=== PATIENT | male | born 1945 | race Caucasian/White ===

== ENCOUNTER 2018-03-29 10:25 | Outpatient (REF) | payer BC, SELFPAY ==
[2018-03-29 20:58] LABS: FREE T4 1.19 ng/dL (0.76-1.46); Potassium 3.8 mmol/L (3.5-5.1); TSH 1.58 uIU/mL (0.358-3.74)
[2018-03-29 21:02] LABS: Abs Immature Grans 0.01 k/cumm (0.0-0.09); Absolute Basophil Count 0.02 k/cumm (0.0-0.2); Absolute Eosinophil Count 0.19 k/cumm (0.0-0.7); Absolute Lymphocyte Count 1.66 k/cumm (1.2-3.4); Absolute Neutrophil Count 5.61 k/cumm (1.2-6.7); Basophils % 0.2; Eosinophils % 2.3; HCT 38.2 % (40.0-50.0); HGB 13.2 g/dL (13.5-17.5); Immature Grans % 0.1; Lymphocytes % 20.5; Mean Corp. HGB Concentration 34.6 g/dL (32.0-36.0); Mean Corpuscular Hemoglobin 32.7 pg (27.0-33.0); Mean Corpuscular Volume 94.6 fL (80-95); Mean Platelet Volume 9.3 fL (8.0-11.0); Monocytes % 7.4; Neutrophils % 69.5; Platelet Count 249 x1000/uL (130-400); RBC 4.04 m/cumm (4.50-6.00); RBC Distribution Width 12.9 % (11.8-14.1); White Blood Cell Count 8.09 k/cumm (4.4-10.8)
== END 2018-03-29 10:45 ==
LOC: NCHCN 10:25
PROVIDERS: PCP Family Medicine; Visit Provider Family Medicine
DX: E03.9 Hypothyroidism, unspecified (principal); I10 Essential (primary) hypertension; N39.9 Disorder of urinary system, unspecified
CPT/HCPCS: 84132; 84439; 84443; 85025

== ENCOUNTER 2018-10-02 15:48 | Outpatient (REF) | payer BC, SELFPAY ==
[2018-10-03 06:07] LABS: HCT 40.3 % (40.0-50.0); HGB 13.8 g/dL (13.5-17.5); Mean Corp. HGB Concentration 34.2 g/dL (32.0-36.0); Mean Corpuscular Hemoglobin 31.9 pg (27.0-33.0); Mean Corpuscular Volume 93.3 fL (80-95); Mean Platelet Volume 9.3 fL (8.0-11.0); Platelet Count 274 x1000/uL (130-400); RBC 4.32 m/cumm (4.50-6.00); RBC Distribution Width 13.4 % (11.8-14.1); White Blood Cell Count 8.72 k/cumm (4.4-10.8)
[2018-10-03 06:41] LABS: ALT 44 U/L (12-78); AST 49 U/L (15-37); Albumin 4.2 g/dL (3.4-5.0); Alkaline Phosphatase 93 U/L (46-116); Anion Gap 12.3 mmol/L (3-11); BUN 16 mg/dL (7-18); Bilirubin, Total 0.5 mg/dL (0.2-1.0); CO2 26.7 mmol/L (21.0-32.0); CREATININE 1.13 mg/dL (0.70-1.30); Calcium 9.5 mg/dL (8.5-10.1); Chloride 100 mmol/L (98-107); Cholesterol 167 mg/dL (50-200); Glucose 95 mg/dL (70-100); HDL Cholesterol 69 mg/dL (40-60); LDL CHOLESTEROL 77 mg/dL (<100); Potassium 3.8 mmol/L (3.5-5.1); Sodium 139 mmol/L (136-145); Total Protein 7.5 g/dL (6.4-8.2); Triglyceride 98 mg/dL (30-150)
[2018-10-03 08:28] LABS: Hemoglobin A1C 5.7 % (4.5-6.2)
== END 2018-10-02 16:08 ==
LOC: NCHCN 15:48
PROVIDERS: PCP Family Medicine; Visit Provider Nurse Practitioner Family
DX: Z00.00 Encounter for general adult medical examination without abnormal findings (principal); E78.5 Hyperlipidemia, unspecified; Z13.1 Encounter for screening for diabetes mellitus; Z98.61 Coronary angioplasty status
CPT/HCPCS: 80053; 80061; 83721; 85027; 83036

== ENCOUNTER 2019-12-30 12:53 | Outpatient (REF) | payer BC, SELFPAY ==
[2019-12-30 21:04] LABS: INR 0.9 (0.9-1.1); Prothrombin Time 9.3 sec (9.3-11.0)
[2019-12-30 21:42] LABS: HCT 39.3 % (40.0-50.0); HGB 13.6 g/dL (13.5-17.5); Mean Corp. HGB Concentration 34.6 g/dL (32.0-36.0); Mean Corpuscular Hemoglobin 32.2 pg (27.0-33.0); Mean Corpuscular Volume 93.1 fL (80-95); Mean Platelet Volume 8.8 fL (8.0-11.0); Platelet Count 319 x1000/uL (130-400); RBC 4.22 m/cumm (4.50-6.00); RBC Distribution Width 13.3 % (11.8-14.1); White Blood Cell Count 7.27 k/cumm (4.4-10.8)
[2019-12-30 22:41] LABS: ALT 32 U/L (16-63); AST 27 U/L (15-37); Albumin 3.9 g/dL (3.4-5.0); Alkaline Phosphatase 93 U/L (46-116); BUN 14 mg/dL (7-18); Bilirubin, Total 0.4 mg/dL (0.2-1.0); CREATININE 0.89 mg/dL (0.70-1.30); Calcium 9.6 mg/dL (8.5-10.1); Calculated LDL 71 mg/dL (<100); Chloride 99 mmol/L (98-107); Cholesterol 150 mg/dL (<200); Glucose 82 mg/dL (74-106); HDL Cholesterol 60 mg/dL (40-60); Potassium 3.7 mmol/L (3.5-5.1); Sodium 137 mmol/L (136-145); TSH 2.47 uIU/mL (0.36-3.74); Total Protein 6.9 g/dL (6.4-8.2); Triglyceride 97 mg/dL (<150)
[2019-12-31 14:40] LABS: Hemoglobin A1C 5.6 % (3.8-5.6)
== END 2019-12-30 13:13 ==
LOC: NCHCN 12:53
PROVIDERS: Visit Provider Nurse Practitioner Family
DX: Z00.00 Encounter for general adult medical examination without abnormal findings (principal); I10 Essential (primary) hypertension; R73.09 Other abnormal glucose; E78.5 Hyperlipidemia, unspecified; Z98.61 Coronary angioplasty status; Z72.89 Other problems related to lifestyle
CPT/HCPCS: 80053; 80061; 85027; 83036; 84443; 85610

== ENCOUNTER 2020-12-30 19:50 | Outpatient (REF) | payer BC, SELFPAY ==
[2020-12-30 14:14] LABS: Hemoglobin A1C 5.2 % (<5.7)
[2020-12-30 14:32] LABS: ALT 40 U/L (16-63); AST 30 U/L (15-37); Albumin 3.7 g/dL (3.4-5.0); Alkaline Phosphatase 84 U/L (46-116); BUN 14 mg/dL (7-18); Bilirubin, Total 0.5 mg/dL (0.2-1.0); Chloride 96 mmol/L (98-107); Ferritin 15 ng/mL (26-388); Glucose 94 mg/dL (74-106); Sodium 135 mmol/L (136-145); TSH 0.81 uIU/mL (0.36-3.74); Total Protein 6.6 g/dL (6.4-8.2); Vitamin B12 852 pg/mL (193-986)
[2020-12-30 21:36] LABS: PSA, Screening 0.9 ng/mL (0.0-6.5)
== END 2020-12-30 19:51 | disposition home or self-care (01) ==
LOC: NCHCN 19:50
PROVIDERS: PCP Nurse Practitioner Family; Visit Provider Nurse Practitioner Community Health
DX: Z12.5 Encounter for screening for malignant neoplasm of prostate (principal); G47.62 Sleep related leg cramps; R73.09 Other abnormal glucose; I10 Essential (primary) hypertension; Z72.89 Other problems related to lifestyle
CPT/HCPCS: 80053; 84153; 82607; 82728; 83036; 84443

== ENCOUNTER 2021-01-06 15:31 | Outpatient (REF) | payer BC, SELFPAY ==
[2021-01-06 21:55] LABS: Anion Gap 12.4 mmol/L (3-11); BUN 16 mg/dL (7-18); CO2 26.6 mmol/L (21.0-32.0); CREATININE 1.1 mg/dL (0.70-1.30); Calcium 8.7 mg/dL (8.5-10.1); Chloride 98 mmol/L (98-107); Glucose 103 mg/dL (74-106); Potassium 3.4 mmol/L (3.5-5.1); Sodium 137 mmol/L (136-145)
== END 2021-01-06 15:32 | disposition home or self-care (01) ==
LOC: NCHCN 15:31
PROVIDERS: PCP Nurse Practitioner Family; Visit Provider Nurse Practitioner Community Health
DX: E87.6 Hypokalemia (principal); E61.1 Iron deficiency
CPT/HCPCS: 80048

== ENCOUNTER 2021-01-14 01:59 | Outpatient (CLI) | payer BC, SELFPAY ==
--- NOTE | 2021-01-14 | DI.RAD_ITS ---
Exam(s) XR LUMBAR SPINE COMPLETE EXAM: XR LUMBAR SPINE COMPLETE CLINICAL HISTORY: SCIATIC NERVE BACK PAIN, M54.30, ? SPINAL STENOSIS. TECHNIQUE: 2D digital imaging was performed. COMPARISON: CT ABD PELVIS WITH CONTRAST from 07/16/2008 FINDINGS: There is no evidence of compression fracture or listhesis nor pars defects. There is mild disc space narrowing at L4-5 level and L3-4 level with anterior osseous lipping at these 2 levels. Other disc spaces exhibit normal height. Mild degenerative facet arthropathy. Abdominal aorta is calcified and appears to and appears aneurysmal. IMPRESSION: Degenerative disc disease. No fracture or listhesis Calcified abdominal aorta possible aneurysm. DATA REPOSITORY: RADIATION DOSE DELIVERED:
--- NOTE | 2021-01-14 | DI.CTLCSR_ITS ---
Exam(s) CT CHEST LUNG CANCER SCREEN EXAM: CT CHEST LUNG CANCER SCREEN CLINICAL HISTORY: SCREENING FOR LUNG CA,CURRENT SMOKER. TECHNIQUE: Imaging Protocol: Low Dose Technique CONTRAST MATERIAL: None COMPARISON: No exams were available for comparison FINDINGS: CHEST: LUNGS: There are no ominous pulmonary nodules. There is mild ground-glass infiltrate in the posterior segment of the right upper lobe and superior segment of the right lower lobe, these increased markin gs surrounding multiple small bullae. There is sparing of the right middle lobe the exception of roxanne e mild increased interstitial markings subpleurally located in the anterior right middle lobe. Also mild increased markings in the posterior basal segment right lower lobe. In the opposite-left lung there is some mild presently benign-appearing pleural thickening over the s ub apical region of the upper lobe. There is some infiltrate in the lingular segment extending from the heart border out to the pleural surface. Probably inflammatory. No significant focal findings i n the lower lobe basal segments of the left lung nor in the superior segment. There are no pleural e ffusions on either side. There are no significant focal findings in the trachea and mainstem bronchi . MEDIASTINUM: There is no obvious hilar nor mediastinal adenopathy. CARDIAC: Heart size is normal. There is no pericardial effusion.Coronary artery calcification noted. Caliber of the thoracic aorta is upper normal. OTHER: OSSEOUS: No significant osseous lesions.. IMPRESSION: 1. Although there are no ominous pulmonary nodules, there is subtle mild ground-glass infiltrate in t he posterior segment of the right upper lobe and superior segment of the right lower lobe. Also some infiltrate in the lingular segment of the left lung. No pleural effusions nor intrathoracic adenopa thy. 2. Recommend repeat CT scan in 6 months, earlier if clinically indicated. 3. Lung RADS Cat 3 - Probably Benign: Probably benign finding(s) - short term follow-up suggested; in clude nodules with a low likelihood of becoming a clinically active cancer. Lung-RADS 1.0 CATEGORIES: Category 0 - Prior chest CT exam(s) being located for comparison. Category 1 - Annual screening in 12 months. No nodules or definitely benign nodules. Category 2 - Annual screening in 12 months. Benign appearance. Nodules with low likelihood of becomin g active cancer. Category 3 - 6-month follow-up. Probably benign. Short-term follow-up suggested. Nodules with low lik elihood of becoming active cancer. Category 4A - 3-month follow-up and CT/PET if >8 mm in size. Suspicious finding. Findings which requi re additional testing. Category 4B - Findings which require additional testing and tissue sampling. Modifier S- Potentially clinically significant findings (non lung cancer) RADIATION DOSE DELIVERED: 82.77mGy.cm Total DLP 1.84mGy CTDIvol DATA REPOSITORY: All CT scans at this facility are submitted to the National Radiology Data Registry (NRDR) Dose Index Registry (DIR) with the [employer] ([employer]). RADIATION OPTIMIZATION: All CT scans at this facility use at least one of these dose optimization te chniques: automated exposure control; mA and/or kV adjustment per patient size (includes targeted exa ms where dose is matched to clinical indication); or iterative reconstruction.
== END 2021-01-14 02:19 ==
PROVIDERS: PCP Nurse Practitioner Family; Visit Provider Nurse Practitioner Community Health
DX: Z12.2 Encounter for screening for malignant neoplasm of respiratory organs (principal); I70.0 Atherosclerosis of aorta; M51.16 Intervertebral disc disorders with radiculopathy, lumbar region; R91.8 Other nonspecific abnormal finding of lung field; F17.200 Nicotine dependence, unspecified, uncomplicated
CPT/HCPCS: 71271; 72110

== ENCOUNTER 2021-01-14 14:00 | Outpatient (REF) | payer BC, SELFPAY ==
[2021-01-14 21:33] LABS: Ferritin 80 ng/mL (26-388)
== END 2021-01-14 14:01 | disposition home or self-care (01) ==
LOC: NCHCN 14:00
PROVIDERS: PCP Nurse Practitioner Family; Visit Provider Nurse Practitioner Community Health
DX: E87.6 Hypokalemia (principal); E61.1 Iron deficiency
CPT/HCPCS: 82728

== ENCOUNTER 2021-04-05 14:39 | Outpatient (REF) | payer BC, SELFPAY ==
[2021-04-05 14:33] LABS: HCT 34.4 % (40.0-50.0); HGB 11.6 g/dL (13.5-17.5)
[2021-04-05 14:48] LABS: Anion Gap 5.9 mmol/L (3-11); BUN 16 mg/dL (7-18); CO2 31.1 mmol/L (21.0-32.0); CREATININE 1.2 mg/dL (0.70-1.30); Calcium 9.2 mg/dL (8.5-10.1); Chloride 99 mmol/L (98-107); Estimated GFR 59.35 (mL/min/1.73m2); Glucose 154 mg/dL (74-106); Potassium 3.2 mmol/L (3.5-5.1); Sodium 136 mmol/L (136-145)
== END 2021-04-05 14:40 | disposition home or self-care (01) ==
LOC: NCHCN 14:39
PROVIDERS: PCP Nurse Practitioner Family; Visit Provider Nurse Practitioner Community Health
DX: I10 Essential (primary) hypertension (principal); E87.6 Hypokalemia; D64.9 Anemia, unspecified
CPT/HCPCS: 80048; 85014; 85018

== ENCOUNTER 2021-05-20 22:41 | Emergency (ER) | payer BC, SELFPAY ==
[2021-05-20 22:46] VITALS: BP 155/66; PULSE 74; RESP 20; TEMP 36.4; O2SAT 99
--- NOTE | 2021-05-20 23:00 | W.ED.GENAD ---
Discharge Plan Disposition Patient Disposition: HOME Condition: Stable Discharge Details Clinical Impression: Pain of right thigh, Muscle spasm Primary Care Provider: Asia Owens ED Provider: Zac Jha Home Meds and New Rx's Prescriptions: New cyclobenzaprine 10 mg tablet 10 mg PO TID PRNQty: 20 RF: 0 Continued amlodipine 10 mg tablet 10 mg PO DAILY Qty: 90 RF: 3 atorvastatin [Lipitor] 20 mg tablet 20 mg PO DAILY Qty: 90 RF: 3 hydrochlorothiazide 25 mg tablet 25 mg PO DAILY Qty: 90 RF: 3 levothyroxine [Synthroid] 137 mcg tablet 137 mcg PO DAILY Qty: 90 RF: 3 mesalamine [Apriso] 0.375 gram capsule,extended release 24hr 0.375 gm PO DAILY Qty: 360 RF: 3 triamcinolone acetonide 0.1 % cream 1 applic Topical BID PRN (Reason: psoriasis) Qty: 80 RF: 0 aspirin [Ecotrin Low Strength] 81 MG tablet,delayed release (DR/EC) 81 mg PO DAILY RF: 0 CENTRUM SILVER TABLET 1 EACH tablet 1 tab PO DAILY RF: 0 nicotine [Nicoderm CQ] 21 mg/24 hr patch 24 hour 1 patch transdermal DAILY RF: 0 sildenafil [Viagra] 100 mg tablet 100 mg PO DAILY PRNRF: 0 potassium chloride 20 mEq tablet,ER particles/crystals 20 meq PO DAILY RF: 0 ferrous sulfate 325 mg (65 mg iron) tablet 325 mg PO Q OTHER DAY RF: 0 gabapentin 300 mg capsule 600 mg PO BID RF: 0 losartan 25 mg tablet 12.5 mg PO DAILY RF: 0 chlorthalidone 15 mg tablet 75 mg PO DAILY RF: 0 Discharge Instructions Instructions: Muscle Spasm (ED) Additional Instructions: follow up with your primary care provider within 1 week if you feel more ill, have fevers or difficulty breathing return to the emergency department Medical Decision Making 75 yo male with hx of htn, hld, who comes in with chief complaint of right thigh pain. He states he had a similar issue in the left leg a month or so ago and was told it was sciatica. He localizes the pain to the anterior right thigh. 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 He is in no distress on exam. He has no leg swelling, no calf tenderness, normal distal sensation and pulses. He localizes the pain to the anterior mid thigh. He has no visible deformities or bruising. His thigh muscles do feel like they are in a spasm compared to the left. He has full range of motion of all joints. I suspect muscle spasm vs strain, no findings on history or exam to suggest fracture/dislocation so do not feel xray indicated and no findings to suggest infectious etiology. No saddle anesthesia and no back pain so doubt cauda equina or spinal epidural abscess. He drove himself here and given this is hesitant to take a muscle relaxer, will try toradol and lidocaine patch and reassess. This could also just be overuse injury or a strain from his work that he does. pt feeling better and requesting d/c, his thigh muscles feel softer and less contracted. Muscle relaxer provided for at home and advised to follow up with his pcp return precautions given Differential Diagnosis Differential Diagnosis: muscle spasm, sciatica, muscle strain Medical Records Medical records reviewed: Yes I reviewed the patient's medical records. HPI General Mode of arrival: ambulatory. Date/Time Provider Initiated Documentation: 05/20/21 22:44. Limitations to Documentation: no limitations. Information obtained by: patient. History of Present Illness 75 year old M presents to the emergency department with the chief complaint of right leg pain, described as moderate, Quality is described as aching, and it has been constant. No relieving factors improve symptom(s), No exacerbating factors reported . Patient notes no other symptoms.. Patient did receive the following treatments prior to arrival, none Related Data Home Medications Medication Instructions Recorded Confirmed Centrum Silver Tablet 1 tab PO DAILY 11/12/12 05/20/21 aspirin [Ecotrin Low Strength] 81 mg PO DAILY tab-cap 11/12/12 05/20/21 amlodipine 10 mg tablet 10 mg PO DAILY #90 tab-cap 08/27/19 05/20/21 atorvastatin 20 mg tablet 20 mg PO DAILY #90 tab 08/27/19 05/20/21 hydrochlorothiazide 25 mg tablet 25 mg PO DAILY #90 tab-cap 08/27/19 05/20/21 levothyroxine 137 mcg tablet 137 mcg PO DAILY #90 tab-cap 08/27/19 05/20/21 mesalamine 0.375 gram 0.375 gm PO DAILY #360 cap 08/27/19 05/20/21 capsule,extended release 24 hr triamcinolone acetonide 0.1 % 1 applic TOPICAL BID PRN #80 gm 08/27/19 05/20/21 topical cream chlorthalidone 15 mg tablet 75 mg PO DAILY 04/28/21 05/20/21 ferrous sulfate 325 mg (65 mg 325 mg PO Q OTHER DAY tab 04/28/21 05/20/21 iron) tablet gabapentin 300 mg capsule 600 mg PO BID cap 04/28/21 05/20/21 losartan 25 mg tablet 12.5 mg PO DAILY tab 04/28/21 05/20/21 nicotine 21 mg/24 hr daily 1 patch TRANSDERMAL DAILY 04/28/21 05/20/21 transdermal patch potassium chloride 20 mEq 20 meq PO DAILY 04/28/21 05/20/21 tablet,extended release(part/cryst) sildenafil 100 mg tablet 100 mg PO DAILY PRN 04/28/21 05/20/21 cyclobenzaprine 10 mg PO TID PRN #20 tab 05/20/21 Previous Rx's Medication Instructions Recorded amlodipine 10 mg tablet 10 mg PO DAILY #90 tab-cap 08/27/19 atorvastatin 20 mg tablet 20 mg PO DAILY #90 tab 08/27/19 hydrochlorothiazide 25 mg tablet 25 mg PO DAILY #90 tab-cap 08/27/19 levothyroxine 137 mcg tablet 137 mcg PO DAILY #90 tab-cap 08/27/19 mesalamine 0.375 gram 0.375 gm PO DAILY #360 cap 08/27/19 capsule,extended release 24 hr triamcinolone acetonide 0.1 % 1 applic TOPICAL BID PRN #80 gm 08/27/19 topical cream cyclobenzaprine 10 mg PO TID PRN #20 tab 05/20/21 Allergies Allergy/AdvReac Type Severity Reaction Status Date / Time Sulfa (Sulfonamide Allergy Intermediate HIGH FEVER Unverified 04/30/21 12:56 Antibiotics) lisinopril AdvReac Mild COUGH Unverified 04/30/21 12:56 prednisone AdvReac Unknown DELIRIUM Unverified 04/30/21 12:56 General Stated Complaint: GenMedical SHARON: 5 Review of Systems All systems reviewed & are unremarkable except as noted in HPI and below Constitutional Constitutional: Denies chills, Denies fever(s) and Denies weakness Cardiovascular Cardiovascular: Denies chest pain and Denies dyspnea Respiratory Respiratory: Denies cough and Denies dyspnea Gastrointestinal Gastrointestinal: Denies abdominal pain, Denies nausea and Denies vomiting Musculoskeletal Musculoskeletal: Denies joint swelling Neurologic Neurologic: Denies weakness Psychiatric Psychiatric: Denies depression [facility] Active Problem List (Updated 05/20/21 @ 23:31 by Zac Jha MD) Pain of right thigh (Acute) Muscle spasm (Acute) Medical History (Updated 05/20/21 @ 23:31 by Zac Jha MD) Alcohol consumption heavy Anemia Ankle pain, left Cigarette smoker Edentulous Erectile dysfunction Fibula fracture Gout History of adenomatous polyp of colon Hypokalemia Lateral epicondylitis Nocturnal leg cramps Prediabetes Pulmonary infiltrates Sciatica Urinary disorder Surgical History (Updated 11/16/17 @ 15:43 by Iris Escalera) Colonoscopy - MAC (11/14/17) Stent placement (~2010) LAD x 3 Family History (Updated 07/26/19 @ 07:28 by Ang Will) Mother , age 83 Essential hypertension Heart disease Father , age 75 Heart disease Sister No problems noted. Brother , age 68 Heart disease Alcohol abuse Maternal Grandfather No problems noted. Maternal Grandmother No problems noted. Sister No problems noted. Sister No problems noted. Son No problems noted. Son No problems noted. Daughter No problems noted. Daughter No problems noted. Social History (Updated 07/26/19 @ 07:23 by Ang Will) Smoking/Tobacco Use Status: Current every day Tobacco Type: cigarettes Years smoked: 50 Quit status: has quit before Smoking risk assessment performed?: Yes Alcohol Intake: current Alcohol Intake frequency: 3 or more drinks per day Drug use: Never Substance use type: does not use Caregiver/Support person: No Household members: spouse Communication Needs: None Do you need help understanding health information?: Rarely Pets and animals: Yes Pets and animals: dog(s) Sexually active: No Do you think of yourself as: straight/heterosexual Current gender identity: male What is your relationship status?: How often do you talk on the phone with friends or family?: three or more times per week How often do you get together with friends or relatives?: decline to answer How often do you attend sikh or mormon services?: decline to answer Do you belong to any clubs or organized social groups?: no Panel score (0-1 are the most socially isolated patients): 2 What type of physical activity do you participate in: none Jennifer/Jew: Holiness Special jennifer needs: No Seatbelt use: sometimes Drive intox or ride w/intox wheelchair driver: No Do you feel safe at home: Yes Do you feel safe in your relationship?: Yes Exam Const General: no acute distress Orientation: alert HENMT Head: normal to inspection Ears: external ears normal General nose exam: external nose normal Mouth: moist mucous membranes Eyes General: appearance normal, both eyes and all related structures Neck Neck: normal visual inspection Resp Effort & Inspection: normal respiratory effort and able to speak in complete sentences Cardio Rate: regular rate Skin General skin exam: no rashes or lesions noted Neuro General: patient alert and patient oriented x3 Extrem General: full ROM and capillary refill normal Psych Mental Status: mental status grossly normal Course Vital Signs Vital signs: Vital Signs Temperature 36.4 C 05/20/21 22:46 Pulse 74 05/20/21 22:46 Respiratory Rate 20 05/20/21 22:46 Blood Pressure 155/66 H 05/20/21 22:46 Pulse Oximetry 99 05/20/21 22:46 Temperature 36.4 C 05/20/21 22:46 Temperature Source Temporal Artery Scan 05/20/21 22:46 Pulse 74 05/20/21 22:46 Respiratory Rate 20 05/20/21 22:46 Respiratory Effort 05/20/21 22:52 Blood Pressure 155/66 H 05/20/21 22:46 Blood Pressure Position Sitting 05/20/21 22:46 Pulse Oximetry 99 05/20/21 22:46 Oxygen Delivery Method Room Air 05/20/21 22:46 Oxygen Flow Rate 0 05/20/21 22:46 Pain Level 8 05/20/21 22:46 PAWSS Have you Been Recently Intoxicated or Drunk Within the Last 30 days?: No Have you Ever Experienced Previous Episodes of Alcohol Withdrawal?: No Have you ever Experienced Withdrawal Seizures?: No Have you ever Experienced Delirium Tremens(DT)s?: No Have you ever undergone Alcohol Rehabilitation Treatment (i.e, inpt ot outpatient treatment programs)?: No Have you ever Experienced Blackouts?: No Have you ever Combined Alcohol with other Downers within the last 90 days?: No Have you ever Combined Alcohol with any other Substance of Abuse during the last 90 days?: No Positive Blood Alcohol level on Presentation? [PCS.BAL]: No Evidence of Increased Autonomic Activity (i.e. HR>120, tremor, sweating, agitation, nausea)?: No Result: 0
[2021-05-20] MEDS: Lidocaine 5% Patch 1 PATCH TP (23:07)
[2021-05-20] MEDS: Ketorolac 15 MG/ML VIAL IM (23:07)
[2021-05-20] MEDS: Cyclobenzaprine 10 MG TAB, 3 TABS/BTL PO (23:35)
== END 2021-05-20 23:42 | disposition home or self-care (01) ==
PROVIDERS: Emergency Provider Emergency Medicine; PCP Nurse Practitioner Family
DX: M79.651 Pain in right thigh (principal); M62.838 Other muscle spasm
CPT/HCPCS: 96372; 99284; 99283; J1885

== ENCOUNTER 2021-05-24 16:50 | Outpatient (REF) | payer BC, SELFPAY ==
[2021-05-24 21:17] LABS: HCT 32.9 % (40.0-50.0); HGB 11.2 g/dL (13.5-17.5); MCH 31.9 pg (27.0-33.0); MCV 93.7 fL (80-95); MPV 8.7 fL (8.0-11.0); Platelet Count 291 10^3/uL (130-400); RBC 3.51 10^6/uL (4.36-5.78); RDW 13.3 % (11.8-14.1); RDW-SD 45.3 fL; WBC 7.43 10^3/uL (4.4-10.8)
[2021-05-24 21:33] LABS: Iron 81 ug/dL (65-175); Total Iron Binding Capacity 362 ug/dL (250-450); Transferrin Sat 22 % (20-55)
[2021-05-24 21:34] LABS: Hemoglobin A1C 5.3 % (<5.7)
[2021-05-24 22:01] LABS: ALT 35 U/L (16-63); AST 24 U/L (15-37); Albumin 3.8 g/dL (3.4-5.0); Alkaline Phosphatase 85 U/L (46-116); Anion Gap 8.5 mmol/L (3-11); BUN 21 mg/dL (7-18); Bilirubin, Total 0.4 mg/dL (0.2-1.0); CO2 28.5 mmol/L (21.0-32.0); Calcium 9.3 mg/dL (8.5-10.1); Calculated LDL 52 mg/dL (<100); Chloride 99 mmol/L (98-107); Cholesterol 137 mg/dL (<200); Ferritin 56 ng/mL (26-388); Glucose 100 mg/dL (74-106); HDL Cholesterol 67 mg/dL (40-60); Potassium 3.8 mmol/L (3.5-5.1); Sodium 136 mmol/L (136-145); Total Protein 6.6 g/dL (6.4-8.2); Triglyceride 91 mg/dL (<150); Vitamin B12 775 pg/mL (193-986)
[2021-05-24 22:02] LABS: Folate > 20.0 ng/mL (8.6-20.0)
[2021-05-24 22:11] LABS: Uric Acid 6.8 mg/dL (3.5-7.2)
== END 2021-05-24 16:51 | disposition home or self-care (01) ==
LOC: NCHCN 16:50
PROVIDERS: PCP Nurse Practitioner Family; Visit Provider Nurse Practitioner Family
DX: I10 Essential (primary) hypertension (principal); E78.5 Hyperlipidemia, unspecified; R73.09 Other abnormal glucose; D64.9 Anemia, unspecified
CPT/HCPCS: 80053; 80061; 85027; 82607; 82728; 82746; 83036; 83540; 83550; 84550

== ENCOUNTER 2021-05-31 02:53 | Outpatient (CLI) | payer BC, SELFPAY ==
[2021-05-31 12:45] LABS: Source Nasal/Nares
[2021-05-31 17:39] LABS: COVID-19 PCR Negative (Negative)
== END 2021-05-31 02:54 | disposition home or self-care (01) ==
LOC: LBO 02:53
PROVIDERS: PCP Nurse Practitioner Family; Visit Provider Surgery
DX: Z20.822 Contact with and (suspected) exposure to COVID-19 (principal)
CPT/HCPCS: 87635

== ENCOUNTER 2021-06-01 06:14 | Day surgery (SDC) | payer BC, SELFPAY ==
[2021-06-01 06:38] VITALS: BP 147/78; PULSE 91; RESP 16; TEMP 36.6; O2SAT 99
[2021-06-01] MEDS: Lactated Ringers 1,000 ML 80 ML IV (06:44)
--- NOTE | 2021-06-01 07:07 | W.ANESPRE ---
General Info Date of Service Date Performed: 06/01/21 Height: 5 ft 9 in Weight: 69.8 kg Body Mass Index (BMI): 22.7 Surgical Procedure: Operation Date: 06/01/21 07:35 Proposed Procedures Side Surgeon nathalia Ramirez, DO Meds Allergies and Home Medications Allergies Allergy/AdvReac Type Severity Reaction Status Date / Time Sulfa (Sulfonamide Allergy Intermediate HIGH FEVER Unverified 06/01/21 06:37 Antibiotics) lisinopril AdvReac Mild COUGH Unverified 06/01/21 06:37 prednisone AdvReac Unknown DELIRIUM Unverified 06/01/21 06:37 Home Medication Medication Instructions Recorded Centrum Silver Tablet 1 tab PO DAILY 11/12/12 aspirin [Ecotrin Low Strength] 81 mg PO DAILY tab-cap 11/12/12 amlodipine 10 mg tablet 10 mg PO DAILY #90 tab-cap 08/27/19 atorvastatin 20 mg tablet 20 mg PO DAILY #90 tab 08/27/19 hydrochlorothiazide 25 mg tablet 25 mg PO DAILY #90 tab-cap 08/27/19 levothyroxine 137 mcg tablet 137 mcg PO DAILY #90 tab-cap 08/27/19 mesalamine 0.375 gram 0.375 gm PO DAILY #360 cap 08/27/19 capsule,extended release 24 hr triamcinolone acetonide 0.1 % 1 applic TOPICAL BID PRN #80 gm 08/27/19 topical cream chlorthalidone 15 mg tablet 75 mg PO DAILY 04/28/21 ferrous sulfate 325 mg (65 mg 325 mg PO Q OTHER DAY tab 04/28/21 iron) tablet gabapentin 300 mg capsule 600 mg PO BID cap 04/28/21 losartan 25 mg tablet 12.5 mg PO DAILY tab 04/28/21 nicotine 21 mg/24 hr daily 1 patch TRANSDERMAL DAILY 04/28/21 transdermal patch potassium chloride 20 mEq 20 meq PO DAILY 04/28/21 tablet,extended release(part/cryst) sildenafil 100 mg tablet 100 mg PO DAILY PRN 04/28/21 cyclobenzaprine 10 mg PO TID PRN #20 tab 05/20/21 cyclobenzaprine 5 mg PO TID PRN #15 tab 05/21/21 aspirin 81 mg PO DAILY 05/31/21 Current Visit Medications: Current Medications Generic Name Dose Route Start Last Admin Trade Name Freq PRN Reason Stop Dose Admin Hyoscyamine Sulfate 0.125 mg 05/31/21 22:01 Hyoscyamine 0.125 Mg Sl/Oral/Chew SL DIRECTED PRN Ringer's Solution 1,000 mls @ 80 mls/hr 06/01/21 06:00 06/01/21 06:44 IV 06/30/21 23:59 80 mls/hr INFUSION LIZ Administration Iron Sucrose 200 mg/ Sodium 110 mls @ 440 mls/hr 06/01/21 06:00 Chloride IVPB 06/01/21 23:59 TODAY LIZ IV Miscellaneous Supplies 1 each 06/01/21 06:00 Iv Access IV 06/30/21 23:59 DIRECTED LIZ Ondansetron HCl 4 mg 05/31/21 22:01 Ondansetron 4 Mg/2 Ml Vial IVP Q4H PRN PRN Nausea / Vomiting Sodium Chloride 0 ml 06/01/21 06:00 Normal Saline Flush 10 Ml Syr IV 06/30/21 23:59 PRN PRN Sodium Chloride 0 ml 06/01/21 06:00 Normal Saline 10 Ml Vial IJ 06/30/21 23:59 DIRECTED PRN Sterile Water 0 ml 06/01/21 06:00 Water,Injection,Sterile 10 Ml Vial IJ 06/30/21 23:59 DIRECTED PRN PFSH Active Problems Active Problems: Problem Status Onset Code Pain of right thigh M79.651 Muscle spasm M62.838 Medical History Active Problem List Pain of right thigh (Acute) Muscle spasm (Acute) Medical History Alcohol consumption heavy Anemia Ankle pain, left Cigarette smoker Edentulous Erectile dysfunction Fibula fracture Gout History of adenomatous polyp of colon Hypokalemia Lateral epicondylitis Nocturnal leg cramps Prediabetes Pulmonary infiltrates Sciatica Urinary disorder Surgical History Surgical History Colonoscopy - MAC (11/14/17) Stent placement (~2010) LAD x 3- Last saw cardiology 2016. F/U with PCP Tobacco Smoking/Tobacco Use Status: Current every day Tobacco Type: cigarettes Years smoked: 50 Passive smoking exposure: Yes Quit Status: has quit before Alcohol Alcohol Intake: current Alcohol intake frequency: 3 or more drinks per day Substance Use Substance use: Never Substance use type: does not use Vital Signs and Lab Results Vital Signs Most Recent Vital Signs in EMR: Most Recent Vital Signs Temp Pulse Resp BP Pulse Ox 36.6 C 91 H 16 147/78 H 99 06/01/21 06:38 06/01/21 06:38 06/01/21 06:38 06/01/21 06:38 06/01/21 06:38 Lab Results Blood Type / Crossmatch: No Data to Display Complete Blood Count: White Blood Count 7.43 10^3/uL (4.4-10.8) 05/24/21 15:50 05/24/21 Red Blood Count 3.51 10^6/uL (4.36-5.78) L 05/24/21 15:50 05/24/21 Hemoglobin 11.2 g/dL (13.5-17.5) L 05/24/21 15:50 05/24/21 Hematocrit 32.9 % (40.0-50.0) L 05/24/21 15:50 05/24/21 Platelet Count 291 10^3/uL (130-400) 05/24/21 15:50 05/24/21 Complete Metabolic Panel: Sodium Level 136 mmol/L (136-145) 05/24/21 15:50 05/24/21 Potassium Level 3.8 mmol/L (3.5-5.1) 05/24/21 15:50 05/24/21 Chloride Level 99 mmol/L (98-107) 05/24/21 15:50 05/24/21 Carbon Dioxide Level 28.5 mmol/L (21.0-32.0) 05/24/21 15:50 05/24/21 Blood Urea Nitrogen 21 mg/dL (7-18) H 05/24/21 15:50 05/24/21 Creatinine 1.0 mg/dL (0.70-1.30) 05/24/21 15:50 05/24/21 Estimated GFR/1.73 m2 >= 60.00 (mL/min/1.73m2) 05/24/21 15:50 05/24/21 Calcium Level 9.3 mg/dL (8.5-10.1) 05/24/21 15:50 05/24/21 Albumin 3.8 g/dL (3.4-5.0) 05/24/21 15:50 05/24/21 Glucose Level 100 mg/dL (74-106) 05/24/21 15:50 05/24/21 Hemoglobin A1c 5.3 % (<5.7) 05/24/21 15:50 05/24/21 Liver Function Panel: Alanine Aminotransferase (ALT/SGPT) 35 U/L (16-63) 05/24/21 15:50 05/24/21 Aspartate Amino Transf (AST/SGOT) 24 U/L (15-37) 05/24/21 15:50 05/24/21 Coagulation Panel: No Data to Display Cardiac Panel: No Data to Display Arterial Blood Gas: No Data to Display Venous Blood Gas: No Data to Display Pancreas Panel: No Data to Display Thyroid Panel: No Data to Display Infectious Disease: Coronavirus (COVID-19)(PCR) Negative (Negative) 05/31/21 11:06 05/31/21 Coronavirus 2019 Source Nasal/Nares 05/31/21 11:06 05/31/21 Blood Cultures: No Data to Display Toxicology Panel: No Data to Display Anesthesia Assessment and Plan Anesthesia History Personal History: No History of Anesthesia Complications Family History: No Family History of Anesthesia Complications Exercise Tolerance Exercise Tolerance: Metabolic Equivalents>4 Pertinent Negatives Pertinent Negatives: No Symptoms of GERD, No Major Cardiovascular Symptoms or Complaints (Stents x3 2006) and No Major Pulmonary Symptoms or Complaints (Smoker 1 ppd x 50) Cardiac & Pulmonary Exam Cardiac Exam: Normal S1/S2 Heart Sounds Pulmonary Exam: Clear Bilateral Breath Sounds Implantable Cardiac Device Does patient have a Pacemaker or an ICD?: No Airway Exam Known Difficult Airway: No Mallampati Class: 1 Mouth Opening: Normal (> 3cm) Thyromental Distance: Greater than 3 cm Neck Range of Motion: Full ROM Neck Circumference: Normal Teeth Condition: Removable Dentures/Plates Upper and Removable Dentures/Plates Lower ASA Classification ASA Score: ASA 2 Emergency Case?: No NPO Status NPO Status: NPO Clears >2 hours, Solids >8 hours Anesthesia Plan Resuscitation Status: Full Code Anesthesia Technique: General Anesthesia Airway Planned: Natural Airway Monitors Used: Standard Monitors
[2021-06-01 07:08] VITALS: BMI 22.7
--- NOTE | 2021-06-01 07:34 | HPE_ITS ---
Date of service: 06/01/21 Time of Service: 07:36 Assessment and Plan Assessment and plan (1) Anemia: Status: Chronic Assessment and plan: The patient is here for Colonoscopy pre-op. His last screening was in 2018 and was remarkable for tubular adenoma. He has no family history of colon cancer. He has not had any bowel habit changes. -Discussed colonoscopy bowel prep as well as the procedure. Discussed possible complications of the procedure to include bleeding, pain, perforation, missed small lesion/polyp, sore throat, aspiration and adverse reaction to the medications. Questions were answered to patient?s satisfaction. No guarantees were implied or given. I spent 28 minutes in reviewing the record, seeing the patient, providing patient education, answering patient's questions and documenting in the medical record. P// Colonoscopy under sedation and EGD for anemia pt seen adn examed. agree w/ above Patient denies any epigastric pain. Has not noticed any blood in her stools. He takes baby aspirin daily. He is a smoker. He has a history of UC. History of Present Illness History of Present Illness Chief Complaint: Anemia, hx of tubular adenoma Narrative: 75 y/o male with history of ulcerative colitis, HTN, psoriasis and CAD (stents LAD x 3; 2010) presents for colonoscopy pre-op for further evaluation of anemia. He denies any changes in his medical or health history since last seen in the clinic. His last screening was in 2018, which was remar kable for tubular adenoma. He denies a family history of colon cancer. He denies any changes in bowel habits including bloody or black tarry stools, abdominal pain, diarrhea or constipation. He denies constitutional symptoms. Denies use of marijuana or any other recreational or illegal drugs. He denies chest pain, palpitations, dyspnea or dyspnea with exertion. He denies prior history or family history of adverse reactions or complications with anesthesia. The patient denies any history of stroke, OH, seizures, bleeding or clotting disorders. He denies having any implanted metal in his body. Review of Systems Constitutional Constitutional: Reports as per HPI Eyes Eyes: Denies change in vision ENT Ears, Nose, Mouth, and Throat: Denies mouth pain, Denies odynophagia and Denies sore throat Cardiovascular Cardiovascular: Denies chest pain, Denies chest pain at rest, Denies chest pain with activity, Denies irregular heart rhythm, Denies dyspnea and Denies dyspnea on exertion Respiratory Respiratory: Denies cough, Denies dyspnea, Denies dyspnea on exertion and Denies wheezing Gastrointestinal Gastrointestinal: Denies abdominal pain, Denies melena, Denies hematochezia, Denies change in bowel habits and Denies odynophagia Genitourinary Genitourinary: Denies urinary hesitancy and Denies urinary incontinence Hematologic/Lymphatic Hematologic/Lymphatic: Denies easy bleeding and Denies easy bruising Allergic/Immunologic Allergic/Immunologic: Denies wheezing [facility] Active Problem List (Updated 06/01/21 @ 07:38 by CORNELIO Estrada) Anemia (Chronic) Pain of right thigh (Acute) Muscle spasm (Acute) Medical History (Updated 06/01/21 @ 07:38 by CORNELIO Estrada) Alcohol consumption heavy Anemia Ankle pain, left Cigarette smoker Edentulous Erectile dysfunction Fibula fracture Gout History of adenomatous polyp of colon Hypokalemia Lateral epicondylitis Nocturnal leg cramps Prediabetes Pulmonary infiltrates Sciatica Urinary disorder Surgical History Colonoscopy - MAC (11/14/17) Stent placement (~2010) LAD x 3- Last saw cardiology 2016. F/U with PCP Family History (Updated 07/26/19 @ 07:28 by Ang Will) Mother , age 83 Essential hypertension Heart disease Father , age 75 Heart disease Sister No problems noted. Brother , age 68 Heart disease Alcohol abuse Maternal Grandfather No problems noted. Maternal Grandmother No problems noted. Sister No problems noted. Sister No problems noted. Son No problems noted. Son No problems noted. Daughter No problems noted. Daughter No problems noted. Social History (Updated 07/26/19 @ 07:23 by Ang Will) Smoking/Tobacco Use Status: Current every day Tobacco Type: cigarettes Years smoked: 50 Quit status: has quit before Smoking risk assessment performed?: Yes Alcohol Intake: current Alcohol Intake frequency: 3 or more drinks per day Drug use: Never Substance use type: does not use Caregiver/Support person: No Household members: spouse Communication Needs: None Do you need help understanding health information?: Rarely Pets and animals: Yes Pets and animals: dog(s) Sexually active: No Do you think of yourself as: straight/heterosexual Current gender identity: male What is your relationship status?: How often do you talk on the phone with friends or family?: three or more times per week How often do you get together with friends or relatives?: decline to answer How often do you attend yazdanism or adventist services?: decline to answer Do you belong to any clubs or organized social groups?: no Panel score (0-1 are the most socially isolated patients): 2 What type of physical activity do you participate in: none Jennifer/Episcopal: Mandaeism Special jennifer needs: No Seatbelt use: sometimes Drive intox or ride w/intox 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 Do you feel safe at home: Yes Do you feel safe in your relationship?: Yes Meds Allergies and Home Medications Allergies Allergy/AdvReac Type Severity Reaction Status Date / Time Sulfa (Sulfonamide Allergy Intermediate HIGH FEVER Unverified 06/01/21 06:37 Antibiotics) lisinopril AdvReac Mild COUGH Unverified 06/01/21 06:37 prednisone AdvReac Unknown DELIRIUM Unverified 06/01/21 06:37 Home Medications Medication Instructions Recorded Confirmed Type Centrum Silver Tablet 1 tab PO DAILY 11/12/12 06/01/21 History aspirin [Ecotrin Low Strength] 81 mg PO DAILY tab-cap 11/12/12 06/01/21 History amlodipine 10 mg tablet 10 mg PO DAILY #90 tab-cap 08/27/19 06/01/21 Rx atorvastatin 20 mg tablet 20 mg PO DAILY #90 tab 08/27/19 06/01/21 Rx hydrochlorothiazide 25 mg tablet 25 mg PO DAILY #90 tab-cap 08/27/19 06/01/21 Rx levothyroxine 137 mcg tablet 137 mcg PO DAILY #90 tab-cap 08/27/19 06/01/21 Rx mesalamine 0.375 gram 0.375 gm PO DAILY #360 cap 08/27/19 06/01/21 Rx capsule,extended release 24 hr triamcinolone acetonide 0.1 % 1 applic TOPICAL BID PRN #80 gm 08/27/19 06/01/21 Rx topical cream chlorthalidone 15 mg tablet 75 mg PO DAILY 04/28/21 06/01/21 History ferrous sulfate 325 mg (65 mg 325 mg PO Q OTHER DAY tab 04/28/21 06/01/21 History iron) tablet gabapentin 300 mg capsule 600 mg PO BID cap 04/28/21 06/01/21 History losartan 25 mg tablet 12.5 mg PO DAILY tab 04/28/21 06/01/21 History nicotine 21 mg/24 hr daily 1 patch TRANSDERMAL DAILY 04/28/21 06/01/21 History transdermal patch potassium chloride 20 mEq 20 meq PO DAILY 04/28/21 06/01/21 History tablet,extended release(part/cryst) sildenafil 100 mg tablet 100 mg PO DAILY PRN 04/28/21 06/01/21 History cyclobenzaprine 10 mg PO TID PRN #20 tab 05/20/21 06/01/21 Rx cyclobenzaprine 5 mg PO TID PRN #15 tab 05/21/21 06/01/21 Rx aspirin 81 mg PO DAILY 05/31/21 06/01/21 History Exam Const General: cooperative, healthy appearing and no acute distress Orientation: alert and oriented x3 [facility] Head: normal to inspection, no abrasions and no raccoon eyes Ears: hearing grossly normal bilaterally General nose exam: external nose normal and no nasal discharge noted Resp Effort & Inspection: normal respiratory effort, no audible wheezes and no cough Auscultation: clear to auscultation bilaterally Cardio Jugular venous pressure: no JVD Rate: regular rate Rhythm: regular rhythm Heart Sounds: S1 normal, S2 normal, no click and no murmurs GI Inspection: normal to inspection and non-distended Palpation: soft, no guarding and nontender Auscultation: normal bowel sounds Skin General skin exam: no rashes or lesions noted Neuro General: patient alert, patient oriented x3 and gait normal Cognition: normal cognition Speech: speech normal Results Last Vital Signs Temp 36.6 C 06/01/21 06:38 Pulse 91 H 06/01/21 06:38 Resp 16 06/01/21 06:38 BP 147/78 H 06/01/21 06:38 Pulse Ox 99 06/01/21 06:38
--- NOTE | 2021-06-01 07:55 | STOM_PTH ---
PATIENT: Oswaldo Singh LOC: [facility] U#:[id number] AGE/SX: 75/M ROOM: RE06/01/[address]: Nara Ramirez : 1945 BED: DIS: 06/01/2021 SPEC #: [id number] RECD: 06/01/21 12:42 STATUS: [facility] #: [id number] CARMITA: 06/01/21 07:[address]: Nara Ramirez DEPT: Surgical Specimen RECD BY: Julia Perez ENTERED: 06/01/21 12:45 SP TYPE: STOMACH OTHR DR: Asia Simpson Tissues: 1 - BIOPSY BOWEL 2 - BIOPSY BOWEL 3 - BIOPSY BOWEL 4 - STOMACH BIOPSY 5 - STOMACH BIOPSY 6 - STOMACH BIOPSY 7 - ESOPHAGUS BIOPSY 8 - ESOPHAGUS BIOPSY 9 - SOFT TISSUE MISC (INC. LIPOMA) 10 - BIOPSY BOWEL 11 - BIOPSY BOWEL Procedures: GROSS AND MICRO LEVEL 4 GROSS AND MICRO LEVEL 3 Comments: [id number]
[2021-06-01 08:35] VITALS: BP 110/61; PULSE 68; RESP 16; TEMP 36.3; O2SAT 96
--- NOTE | 2021-06-01 08:36 | W.ANESPOSTOP ---
Postoperative Evaluation Date, Time and Location Date Performed: 06/01/21 Time Performed: 08:36 Patient Location: Day Surgery Unit Vital Signs Most Recent Imported Vital Signs: Most Recent Vital Signs Temp Pulse Resp BP Pulse Ox 36.6 C 91 H 16 147/78 H 99 06/01/21 06:38 06/01/21 06:38 06/01/21 06:38 06/01/21 06:38 06/01/21 06:38 Most Recent Manually Entered Vital Signs: Adult Blood Pressure: 110/61 Heart Rate: 68 Respirations: 12 Oxygen Saturation (%): 96 Temperature (C): 36.4 C Pain Score (0-10 Scale): 0 Assessment Mental Status: Awake (Alert & Oriented to Patient Baseline) Airway and Respiratory Function: Patent airway with normal (patient baseline) respiratory exam Cardiovascular Function: Hemodynamically Stable Hydration Status: Adequately Hydrated Nausea & Vomiting: No Nausea or Vomiting Pain: Pt. Denies Any Pain Peripheral Nerve Block: Patient did not receive a nerve block
[2021-06-01 08:37] VITALS: BP 110/61; PULSE 68; RESP 12; TEMPC 36.4; O2SAT 96
--- NOTE | 2021-06-01 08:40 | ENDO_ITS ---
Date of service: 06/01/21 Time of Service: 08:40 Endoscopy Report DATE OF PROCEDURE: 06/01/21 PRE-OP DIAGNOSIS: anemia POST-OP DIAGNOSIS: other (Enteritis noted in the proximal jejunum/duodenitis polyp in D2/duodenitis/polyp at antrum/erosive gastritis) SURGEON: Nara Ramirez ANESTHESIA TYPE: General:No Airway ESTIMATED BLOOD LOSS: 3 PATHOLOGY: other COMPLICATIONS: None DISPOSITION: PACU PREP: Miralax/Dulcolax PROCEDURE DESCRIPTION: After informed consent was obtained the patient was take to the procedure room and placed in a supine position. Monitors were applied and a time out was done. The patients name, date of , procedure type, allergies to medications and metal in their body was reviewed. A bite block was placed and the patient was sedated. Once sedated and comfortable the gastroscope was advanced through the oropharynx which was grossly normal into the esophagus. The proximal and mid-esophagus were normal. In the distal esophagus there was no: esophagitis/varices/diverticula/stricture. the scope was advanced into the stomach and through the pylorus into the 3rd portion of the duodenum. There is noted to be a patchy erythema of the proximal jejunum. Biopsy is taken of this. There is a 1 cm adenoma in the antimesenteric portion of D2. Biopsies taken of this. There is generalized mild duodenitis and erythema noted in the duodenal bulb. Biopsies taken of this. He does have an 1cm polyp at the antrum. Biopsy is taken of this. He does have erosive gastritis throughout the entirety of the lower half of the stomach. Biopsies were taken at the antrum and the greater curve. He does have some mild punctate hemorrhaging. The mucosa is extremely friable and bleeds quite readily. There is no hiatal hernia noted. Biopsies are taken at the GE junction and the distal esophagus. Biopsies were done-. The scope was retracted back into the stomach and biopsies were done to rule out H. pylori. There were no ulcers. The scope was retroflexed. The cardia and fundus were noted to be normal. There is no hiatal hernia noted. The scope was retracted back into the esophagus and biopsies were done of the GE junction to rule out Pedro's. The Z line was regular. The scope was removed and the patient was woken up and taken back to [facility] in stable condition. Follow up: pt needs to talk to PCP about ASA cessation Rx pepcid and carafate w/ asa pt had x3 stents placed 15 yrs ago. He continues to smoke. pt recieved IV Venofer and protonix today
--- NOTE | 2021-06-01 08:45 | COLE_ITS ---
Colonoscopy Report Prep: Miralax/Dulcolax Retraction Time: 12 Procedure Description: After informed consent was obtained the patient was taken to the procedure room and placed in a left decubitous position. Monitors were applied and a time out was done. The patients name, date of , procedure, allergies to medications and metal in their body was reviewed. The patient was then sedated. Once sedated and comfortable a rectal exam was done. External exam was normal. Internal exam revealed a normal sphincter tone and no palpable masses. The scope was then introduced and retrofelexed. GradeI internal hemorrhoids were identified. The scope was then advanced to the cecum w/out difficulty. The TI and appendiceal orifice were identified. The prep was good. The scope was then slowly retracted over 12 minutes back into the rectum. The scope was removed and the patient was woken up and taken back to Same day surgery in stable condition. Patient does have multiple external hemorrhoidal tags. He has grade 1 internal hemorrhoids. He has moderate diverticula confined to the sigmoid colon. He has multiple polyps at 30 cm to the rectum. A medical billing representative sampling of these are taken. This is probably pseudopolyposis due to his longstanding UC. He has a lipoma and a small polyp at 80 cm. The polyp was removed with a cold forcep. The lipoma was biopsied. There are no signs of chronic UC in the remainder of the colon and the mucosa appears pink and healthy. The patient tolerated the procedure well and there were no immediate complications. Follow up: The patient should follow up in 2 years unless they develop changes in bowel habits or other new gastrointestinal complaints.
--- NOTE | 2021-06-01 08:47 | PDOC.DSDIS_ITS ---
Discharge Plan Disposition Patient Disposition: HOME Condition: Good Discharge Details Reason For Visit: egd and colon Attending Provider: Nara Ramirez Primary Care Provider: Asia Owens Home Meds and New Rx's Prescriptions: New famotidine [Pepcid] 40 mg tablet 40 mg PO DAILY Qty: 30 RF: 12 sucralfate [Carafate] 1 gram tablet 1 g PO QDAY Qty: 30 RF: 12 Continued amlodipine 10 mg tablet 10 mg PO DAILY Qty: 90 RF: 3 atorvastatin [Lipitor] 20 mg tablet 20 mg PO DAILY Qty: 90 RF: 3 hydrochlorothiazide 25 mg tablet 25 mg PO DAILY Qty: 90 RF: 3 levothyroxine [Synthroid] 137 mcg tablet 137 mcg PO DAILY Qty: 90 RF: 3 mesalamine [Apriso] 0.375 gram capsule,extended release 24hr 0.375 gm PO DAILY Qty: 360 RF: 3 triamcinolone acetonide 0.1 % cream 1 applic Topical BID PRN (Reason: psoriasis) Qty: 80 RF: 0 aspirin [Ecotrin Low Strength] 81 MG tablet,delayed release (DR/EC) 81 mg PO DAILY RF: 0 CENTRUM SILVER TABLET 1 EACH tablet 1 tab PO DAILY RF: 0 nicotine [Nicoderm CQ] 21 mg/24 hr patch 24 hour 1 patch transdermal DAILY RF: 0 sildenafil [Viagra] 100 mg tablet 100 mg PO DAILY PRNRF: 0 potassium chloride 20 mEq tablet,ER particles/crystals 20 meq PO DAILY RF: 0 ferrous sulfate 325 mg (65 mg iron) tablet 325 mg PO Q OTHER DAY RF: 0 gabapentin 300 mg capsule 600 mg PO BID RF: 0 losartan 25 mg tablet 12.5 mg PO DAILY RF: 0 chlorthalidone 15 mg tablet 75 mg PO DAILY RF: 0 aspirin 81 mg Capsule,Delayed Release(Dr/Ec) 81 mg PO DAILY RF: 0 cyclobenzaprine 10 mg tablet 10 mg PO TID PRNQty: 20 RF: 0 cyclobenzaprine 5 mg tablet 5 mg PO TID PRNQty: 15 RF: 0 Discharge Instructions Additional Instructions: DSU Colonoscopy Post- Op Instructions Instructions for Everyone who is given Anesthes ia: For your safety, please do the following for the next twenty-four (24) hours: *Do Not operate a motor vehicle (car, truck, motorcycle, etc.) *Do Not drink alcoholic beverages or use any recreational drugs for the first 24 hours or while taking pain medications. The medications in your body may have a reaction that can be dangerous. *Do Not make any important decisions or sign any important papers. Findings:gastritis/duodenitis/enteritis diverticula/polyps -pepcid daily -carafate prior to taking asa OR talk to PCP about stopping ASA -stop smoking Follow up:repeat in 2 yrs time 1. No lifting over 20 pounds or strenuous activity for the first 24 hours after your procedure. After 24 hours there are no restrictions on your activity but you may feel fatigued for a few days. 2. After you arrive home you may have a light meal and return to your normal diet as you can tolerate it without feeling sick to your stomach. 3. You may have a bloated, gaseous feeling in your belly (abdomen) after a colonoscopy. Passing gas and belching will help. Walking or lying down on your left side with your knees flexed may relieve the discomfort. Call the office at [phone] (Office) or [phone] (Hospital) right away if you notice any of the following: a.Vomiting of blood or ?coffee ground stools?. b.Rectal bleeding 1Tbsp, blood clots or continuous bleeding. c.Severe belly (abdominal) pain. d.A hard distended belly (abdomen) and an inability to pass gas. 4. Please don?t expect to have a normal BM (bowel movement) for 2-3 days after your procedure. 5. If there are questions regarding the findings of your procedure, please contact your doctor 6. If you are unable to contact your doctor with a problem, contact the hospital at [phone]. 7. Continue all your regular medications unless directed otherwise. I understand the above instructions and have no questions. Signature of Patient or Adult Escort Name of Responsible Adult Escort Signature of Nurse Date/Time Activity:: see above Diet:: see above Discharge Orders Discharge Orders: Discharge Order (Routine); Ordered 05/31/21 Ordered By: Nara Ramirez DS: Diagnosis Discharge Diagnosis (1) Anemia: Status: Chronic
[2021-06-01] MEDS: IRON SUCROSE COMPLEX 200 MG in Normal Saline 100 ML 440 MG IVPB (09:03)
[2021-06-01] MEDS: Normal Saline-STERILE FIELD 0.9% 10 ML SYR (09:03)
[2021-06-01] MEDS: Pantoprazole 40 MG VIAL IVP (09:03)
[2021-06-01 09:04] VITALS: BP 166/80; PULSE 73; RESP 16; TEMP 36.3; O2SAT 97
== END 2021-06-01 10:03 | disposition home or self-care (01) ==
PROVIDERS: PCP Nurse Practitioner Family; Visit Provider Surgery
PROC: 0DJD8ZZ Inspection of Lower Intestinal Tract, Via Natural or Artificial Opening Endoscopic (ICD-10-PCS; CPT 45378; principal; 2021-06-01 07:30)
DX: D64.9 Anemia, unspecified (principal); K29.61 Other gastritis with bleeding; K31.7 Polyp of stomach and duodenum; K63.5 Polyp of colon; D17.5 Benign lipomatous neoplasm of intra-abdominal organs; K57.30 Diverticulosis of large intestine without perforation or abscess without bleeding; K29.80 Duodenitis without bleeding; K64.0 First degree hemorrhoids; K64.4 Residual hemorrhoidal skin tags; Z86.010 Personal history of colon polyps; K51.90 Ulcerative colitis, unspecified, without complications; K52.9 Noninfective gastroenteritis and colitis, unspecified; Z79.82 Long term (current) use of aspirin; F17.210 Nicotine dependence, cigarettes, uncomplicated
CPT/HCPCS: 45380; 43239; 88305; 96365; 88304; J1756; J2001

== ENCOUNTER 2021-06-04 00:36 | Outpatient (CLI) | payer BC, SELFPAY ==
--- NOTE | 2021-06-04 10:00 | DI.MRI_ITS ---
Exam(s) MR LUMBAR SPINE WO EXAM: MR LUMBAR SPINE WO CLINICAL HISTORY: LUMBAR RADICULOPATHY RT M54.16. TECHNIQUE: Multiplanar multisequence MRI of the Lumbar spine was performed. COMPARISON: CT ABD PELVIS WITH CONTRAST from 07/16/2008 CR XR LUMBAR SPINE COMPLETE from 01/14/2021 CR XR LUMBAR SPINE COMPLETE from 01/14/2021 FINDINGS: Bones: The last intervertebral disc space is designated the L5/S1 level for the numbering purpose of this examination. The vertebral body heights are well maintained. Alignment is satisfactory. Endpla te degenerative signal changes are seen at multiple levels of the lumbar spine. Cord: The conus tip ends at the T12 level. It is of normal size and signal intensity. T12-L1: No disc herniations or bulges are present. No central spinal canal or neural foraminal stenos is. L1-2: No disc herniations or bulges are present. No central spinal canal or neural foraminal stenosis . L2-3: No disc herniations or bulges are present. No central spinal canal or neural foraminal stenosis . L3-4: There is a mild diffuse disc bulge. Degenerative changes of the facets are present. There is mild narrowing of the central spinal canal. No significant neural foraminal stenosis is present. L4-5: There is a diffuse disc bulge. There are degenerative changes of the facets. No significant c entral spinal canal stenosis is present. There is moderately severe right and moderate left neural f oraminal stenosis. L5-S1: No disc herniations or bulges are present. Degenerative changes of the facets are present.No s ignificant central spinal canal or neural foraminal stenosis is present. Soft tissues: The visualized SI joints and sacrum are well maintained. There is marked dilatation of the right renal pelvis with calyceal dilatation. The urinary bladder are also appears to be markedly distended. It is incompletely imaged on this examination. IMPRESSION: 1. Multilevel degenerative changes resulting in central spinal canal neural foraminal stenosis as yann cribed above. 2. Marked dilatation of the right renal pelvis and urinary bladder. CT scan of the abdomen and pelvi s is recommended for further evaluation. DATA REPOSITORY:
== END 2021-06-04 00:56 ==
PROVIDERS: PCP Nurse Practitioner Family; Visit Provider Nurse Practitioner Family
DX: M54.16 Radiculopathy, lumbar region (principal); M47.816 Spondylosis without myelopathy or radiculopathy, lumbar region; M47.817 Spondylosis without myelopathy or radiculopathy, lumbosacral region; M48.061 Spinal stenosis, lumbar region without neurogenic claudication
CPT/HCPCS: 72148

== ENCOUNTER 2021-07-06 01:03 | Outpatient (CLI) | payer MEDICARE, OTHER, SELFPAY ==
[2021-07-06 08:23] LABS: CREATININE 1.1 mg/dL (0.70-1.30)
[2021-07-06 08:27] LABS: BUN 18 mg/dL (7-18)
--- NOTE | 2021-07-06 08:45 | DI.CT_ITS ---
Exam(s) CT ABDOMEN PELVIS WO/W EXAM: CT ABDOMEN PELVIS WO/W CLINICAL HISTORY: DILATED RENAL COLLECTION SYSTEM, N28.89, ON US WITH LUTS TECHNIQUE: Imaging Protocol: Axial computed tomography images with coronal and sagittal reformatted images were created and reviewed CONTRAST MATERIAL: Intravenous: Omnipaque 350 Contrast volume:100 mL Oral: yes / no COMPARISON: CT ABD PELVIS WITH CONTRAST from 07/16/[address] CHEST LUNG CANCER SCREEN from 01/14/2021 FINDINGS: ABDOMEN: Lung Bases: Mild dependent atelectatic changes are seen in the lung bases. Liver: Normal density. No measurable mass. Portal, Superior Mesenteric, and Splenic Veins: Unremarkable. Gallbladder and Biliary Tract: No radiodense calculus or dilation. Pancreas: Normal density, no abnormal calcifications or inflammatory process. Spleen: Normal. Adrenals: There is a stable left adrenal nodule. The right adrenal gland is unremarkable. Kidneys: Normal size, contour and axis. There is no nephrolithiasis. The left renal collecting syste m is unremarkable. There is marked dilatation of the right renal pelvis. There is moderate prominen ce of the right renal calices. The right ureter is mildly dilated. The delayed images show no evide nce of obstruction in the left kidney. The contrast on the right kidney remains in the renal calices and right renal pelvis. No contrast is seen in the right ureter. No solid masses are seen. There is normal and symmetric enhancement of the kidneys. There is a simple cyst in the inferior pole of t he left kidney. No follow-up is recommended. Abdominal Aorta: Abdominal portion non-dilated. Atherosclerosis. Bowel: No obstruction or bowel wall thickening. Appendix is unremarkable. There is diverticulosis of the colon, but no evidence of acute diverticulitis. There is a moderate amount of retained stool thr oughout the colon. Peritoneal Cavity: No ascites, collection or mesenteric inflammatory response. No free air. Lymph Nodes: Within normal limits. Bones: Within normal limits for the patient's age. Stable appearance of the spine. Soft Tissues: Unremarkable. PELVIS: Bladder: Markedly enlarged. Reproductive Organs: Unremarkable as visualized. Lymph Nodes: Within normal limits. Bones: Within normal limits for the patient's age. IMPRESSION: 1. Marked dilatation of the right renal pelvis. No contrast is seen on the delayed images in the rig ht ureter. A right UPJ obstruction should be considered. No evidence of an obstructing stone. [facility] renal scan should be considered. 2. No evidence of nephrolithiasis. 3. Marked dilatation of the urinary bladder. Bladder outlet obstruction cannot be excluded. 4. Colonic diverticulosis, but no evidence of acute diverticulitis. RADIATION DOSE DELIVERED: 2,145.71mGy.cm Total DLP 2,145.71mGy.cm Total DLP DATA REPOSITORY: All CT scans at this facility are submitted to the National Radiology Data Registry (NRDR) Dose Index Registry (DIR) with the [employer] (A[employer]). RADIATION OPTIMIZATION: All CT scans at this facility use at least one of these dose optimization te chniques: automated exposure control; mA and/or kV adjustment per patient size (includes targeted exa ms where dose is matched to clinical indication); or iterative reconstruction.
[2021-07-06] MEDS: Omnipaque 350 MG/ML 100 ML BTL IJ (08:48)
== END 2021-07-06 01:23 ==
PROVIDERS: PCP Nurse Practitioner Family; Visit Provider Nurse Practitioner Family
DX: N28.89 Other specified disorders of kidney and ureter (principal); Z01.812 Encounter for preprocedural laboratory examination; N32.89 Other specified disorders of bladder; K57.30 Diverticulosis of large intestine without perforation or abscess without bleeding
CPT/HCPCS: 84520; 74178; 82565; J3490

== ENCOUNTER 2021-07-15 18:57 | Outpatient (REF) | payer MEDICARE, OTHER, SELFPAY ==
[2021-07-15 15:28] LABS: Abs Immature Grans 0.02 10^3/uL (0.0-0.06); Absolute Basophil Count 0.03 10^3/uL (0.0-0.2); Absolute Eosinophil Count 0.18 10^3/uL (0.0-0.7); Absolute Lymphocyte Count 1.26 10^3/uL (1.2-3.4); Absolute Monocyte Count 0.74 10^3/uL (0.1-0.8); Basophils % 0.4; Eosinophils % 2.4; HCT 31.3 % (40.0-50.0); HGB 10.7 g/dL (13.5-17.5); Immature Grans % 0.3; Lymphocytes % 16.7; MCH 32.4 pg (27.0-33.0); MCHC 34.2 % (32.0-36.0); MCV 94.8 fL (80-95); MPV 8.5 fL (8.0-11.0); Monocytes % 9.8; Neutrophils % 70.4; Nucleated RBC 0 %; Platelet Count 323 10^3/uL (130-400); RDW 14.5 % (11.8-14.1); RDW-SD 50.4 fL; WBC 7.53 10^3/uL (4.4-10.8)
[2021-07-15 15:58] LABS: ALT 26 U/L (16-63); AST 26 U/L (15-37); Albumin 3.8 g/dL (3.4-5.0); Alkaline Phosphatase 79 U/L (46-116); Anion Gap 6.9 mmol/L (3-11); BUN 16 mg/dL (7-18); Bilirubin, Total 0.4 mg/dL (0.2-1.0); CO2 32.1 mmol/L (21.0-32.0); Calcium 9.1 mg/dL (8.5-10.1); Chloride 94 mmol/L (98-107); Glucose 98 mg/dL (74-106); Potassium 3.3 mmol/L (3.5-5.1); Sodium 133 mmol/L (136-145); TSH 8.73 uIU/mL (0.36-3.74); Total Protein 6.8 g/dL (6.4-8.2)
[2021-07-15 17:04] LABS: Iron 45 ug/dL (65-175); Total Iron Binding Capacity 366 ug/dL (250-450); Transferrin Sat 12 % (20-55)
[2021-07-15 17:17] LABS: Ferritin 40 ng/mL (26-388)
[2021-07-16 10:30] LABS: TSH (W/Ref FT4) 8.64 uIU/mL (0.36-3.74)
[2021-07-16 17:14] LABS: T3,Free 2.7 pg/mL (2.8-5.3)
== END 2021-07-15 18:58 | disposition home or self-care (01) ==
LOC: NCHCN 18:57
PROVIDERS: PCP Nurse Practitioner Family; Visit Provider Registered Nurse
DX: I10 Essential (primary) hypertension (principal); D64.9 Anemia, unspecified; E03.9 Hypothyroidism, unspecified
CPT/HCPCS: 80053; 82728; 83540; 83550; 84439; 84443; 84481; 85025

== ENCOUNTER → 2021-07-26 13:54 | Outpatient (BNVA) | payer MEDICARE, OTHER, SELFPAY | PROVIDERS: PCP Nurse Practitioner Family; Referring Provider Nurse Practitioner Family; Visit Provider Urology | DX: N28.89 Other specified disorders of kidney and ureter (principal); R33.9 Retention of urine, unspecified; N39.490 Overflow incontinence | CPT/HCPCS: 81003; 99214 ==

== ENCOUNTER 2021-08-19 17:55 | Outpatient (REF) | payer MEDICARE, SELFPAY ==
[2021-08-19 15:05] LABS: HCT 34.2 % (40.0-50.0); HGB 11.6 g/dL (13.5-17.5); MCH 31.9 pg (27.0-33.0); MCHC 33.9 % (32.0-36.0); MPV 8.6 fL (8.0-11.0); Platelet Count 317 10^3/uL (130-400); RBC 3.64 10^6/uL (4.36-5.78); RDW 13.2 % (11.8-14.1); WBC 7.75 10^3/uL (4.4-10.8)
[2021-08-19 15:24] LABS: Anion Gap 8.7 mmol/L (3-11); BUN 16 mg/dL (7-18); CO2 27.3 mmol/L (21.0-32.0); CREATININE 0.9 mg/dL (0.70-1.30); Calcium 8.9 mg/dL (8.5-10.1); Chloride 96 mmol/L (98-107); Glucose 98 mg/dL (74-106); Potassium 3.4 mmol/L (3.5-5.1); Sodium 132 mmol/L (136-145); TSH 1.77 uIU/mL (0.36-3.74)
== END 2021-08-19 17:56 | disposition home or self-care (01) ==
LOC: NCHCN 17:55
PROVIDERS: PCP Nurse Practitioner Family; Visit Provider Registered Nurse
DX: E03.9 Hypothyroidism, unspecified (principal); D64.9 Anemia, unspecified; I10 Essential (primary) hypertension
CPT/HCPCS: 80048; 85027; 84443

== ENCOUNTER → 2021-09-10 10:20 | Outpatient (BNVA) | payer MEDICARE, OTHER, SELFPAY | PROVIDERS: PCP Nurse Practitioner Family; Referring Provider Nurse Practitioner Family; Visit Provider Urology | DX: R33.8 Other retention of urine (principal) | CPT/HCPCS: 51702 ==

== ENCOUNTER 2021-09-15 07:52 | Outpatient (CLI) | payer MEDICARE, OTHER, SELFPAY ==
--- NOTE | 2021-09-15 06:00 | DI.RAD_ITS ---
Exam(s) XR PAIN CLINIC LUMBAR SP 2V EXAM: XR PAIN CLINIC LUMBAR SP 2V CLINICAL HISTORY: Dx: Lumbar Radiculopathy TECHNIQUE: 2D and realtime digital imaging was performed. Radiologist not present. CONTRAST MATERIAL: None. COMPARISON: No exams were available for comparison FINDINGS: Fluoroscopy was provided for pain management therapy. Please refer to procedure report or details. Cumulative dose: Ka,r=12.25 mGy IMPRESSION: RADIATION DOSE DELIVERED:
[2021-09-15 08:07] VITALS: BP 122/69; PULSE 75; RESP 14; TEMP 36.9; O2SAT 97
--- NOTE | 2021-09-15 08:37 | PDOC.PAIN ---
Pain Clinic Procedure Note Procedure Note Procedure Note: LUMBAR / SACRAL TRANSFORAMINAL INJECTION Oswaldo Singh has been referred to the [facility] for a transforaminal nerve root block and steroid injection. COMMENTS: I previously evaluated the patient in the clinic on 08/11/21. His pre-procedure pain VAS is 6/10. Dx: Lumbosacral radiculopathy Patient was interviewed and the medical record reviewed. There were no medical, pharmacologic, radiographic or other structural contraindications to attempting fluoroscopically guided transforaminal nerve root block and epidural steroid injection. Risks and expected side effects as well as potential benefit of the procedure were reviewed and voiced concerns addressed. The printed consent form was signed and witnessed. Standard time-out procedure was performed. Patient was placed in the prone position on the fluoroscopy table and automated blood pressure cuff and pulse oximeter applied. Fluoroscopy was utilized to identify the right L5 neural foramen between L5 and S1. A skin daisy was made for the needle insertion site. A Chlorhexadine prep was carried out, and sterile drapes were applied. Local anesthesia was achieved in the skin and subcutaneous tissues. A 22 gauge curved tip spinal needle was then inserted, advanced with fluoroscopic guidance into the neural foramen, confirmed on the lateral view. After negative aspiration, 2 ml of Omnipaque 240 was injected confirming position in A/P and lateral views. This showed a good spread of dye transforaminally into the epidural space. There was no vascular update with contrast injection under continuous fluoroscopy and digital substraction. 15 mg of Dexamethasone was injected, followed by 0.5 ml of 1% Xylocaine flush for the nerve root block, as well. There was no unusual discomfort expressed.The needle was withdrawn. The patient tolerated the procedure well. A Band-Aid was applied. Vital signs were stable throughout the procedure and were as recorded in nursing records. If given, dosages of intravenous drugs for anxiolysis and analgesia were documented in nursing records. Follow up plans and appointments were discussed. 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 COMMENTS:Post-procedure pain VAS was 0/10. Jose L Matthews DO, MPH [facility]-Pain Management [facility] CC: Asia Simpson
[2021-09-15] MEDS: Dexamethasone Sod. Phos./Pres-Free 10 MG/ML VIAL IJ (08:43)
[2021-09-15] MEDS: Omnipaque 240 MG/ML 50 ML BTL IJ (08:43)
[2021-09-15 08:45] VITALS: BP 144/67; PULSE 82; RESP 12; O2SAT 96
== END 2021-09-15 07:53 | disposition home or self-care (01) ==
LOC: PC 07:53
PROVIDERS: PCP Nurse Practitioner Family; Visit Provider Preventive Medicine Occupational Medicine
DX: M54.17 Radiculopathy, lumbosacral region (principal)
CPT/HCPCS: 64483; 72100; Q9967

== ENCOUNTER → 2021-09-16 07:54 | Outpatient (BNVA) | payer MEDICARE, OTHER, SELFPAY | PROVIDERS: PCP Nurse Practitioner Family; Referring Provider Nurse Practitioner Family; Visit Provider Nurse Practitioner Gerontology | DX: R69 Illness, unspecified (principal) ==

== ENCOUNTER 2021-09-16 20:27 | Outpatient (REF) | payer MEDICARE, OTHER, SELFPAY ==
[2021-09-16 19:32] LABS: BUN 16 mg/dL (7-18); CREATININE 1.1 mg/dL (0.70-1.30); Calcium 8.9 mg/dL (8.5-10.1); Chloride 95 mmol/L (98-107); Glucose 177 mg/dL (74-106); Sodium 131 mmol/L (136-145)
[2021-09-16 19:47] LABS: Potassium 2.8 mmol/L (3.5-5.1)
== END 2021-09-16 20:28 | disposition home or self-care (01) ==
LOC: NCHCN 20:27
PROVIDERS: PCP Nurse Practitioner Family; Visit Provider Nurse Practitioner Family
DX: E87.6 Hypokalemia (principal)
CPT/HCPCS: 80048

== ENCOUNTER 2021-09-20 10:07 | Outpatient (REF) | payer MEDICARE, OTHER, SELFPAY ==
[2021-09-20 21:21] LABS: Potassium 3.8 mmol/L (3.5-5.1)
== END 2021-09-20 10:08 | disposition home or self-care (01) ==
LOC: NCHCN 10:07
PROVIDERS: PCP Nurse Practitioner Family; Visit Provider Nurse Practitioner Family
DX: E87.6 Hypokalemia (principal)
CPT/HCPCS: 84132

== ENCOUNTER 2021-10-15 22:48 | Outpatient (REF) | payer MEDICARE, OTHER, SELFPAY ==
[2021-10-15 20:57] LABS: Potassium 3.3 mmol/L (3.5-5.1)
== END 2021-10-15 22:49 | disposition home or self-care (01) ==
LOC: NCHCN 22:48
PROVIDERS: PCP Nurse Practitioner Family; Visit Provider Nurse Practitioner Family
DX: E87.6 Hypokalemia (principal)
CPT/HCPCS: 84132

== ENCOUNTER 2021-11-09 20:10 | Outpatient (REF) | payer MEDICARE, OTHER, SELFPAY ==
[2021-11-09 14:56] LABS: HCT 33.8 % (40.0-50.0); HGB 11.6 g/dL (13.5-17.5); MCH 31.2 pg (27.0-33.0); MCHC 34.3 % (32.0-36.0); MCV 91 fL (80-95); Platelet Count 265 10^3/uL (130-400); RBC 3.72 10^6/uL (4.36-5.78); RDW 14.2 % (11.8-14.1); RDW-SD 47.4 fL; WBC 7.88 10^3/uL (4.4-10.8)
[2021-11-09 15:41] LABS: BUN 18 mg/dL (7-18); CREATININE 0.9 mg/dL (0.70-1.30); Calcium 8.9 mg/dL (8.5-10.1); Chloride 99 mmol/L (98-107); Glucose 100 mg/dL (74-106); Potassium 3.4 mmol/L (3.5-5.1); Sodium 135 mmol/L (136-145)
[2021-11-10 13:27] LABS: Iron 47 ug/dL (65-175); Total Iron Binding Capacity 317 ug/dL (250-450); Transferrin Sat 15 % (20-55)
== END 2021-11-09 20:11 | disposition home or self-care (01) ==
LOC: NCHCN 20:10
PROVIDERS: PCP Nurse Practitioner Family; Visit Provider Nurse Practitioner Family
DX: D50.9 Iron deficiency anemia, unspecified (principal); R73.09 Other abnormal glucose; I10 Essential (primary) hypertension; F10.10 Alcohol abuse, uncomplicated
CPT/HCPCS: 80048; 85027; 83540; 83550

== ENCOUNTER → 2021-11-12 10:49 | Outpatient (BNVA) | payer MEDICARE, OTHER, SELFPAY | PROVIDERS: PCP Nurse Practitioner Family; Referring Provider Nurse Practitioner Family; Visit Provider Urology | DX: R33.8 Other retention of urine (principal) | CPT/HCPCS: 81003; 99212 ==

== ENCOUNTER 2021-11-12 18:15 | Outpatient (REF) | payer MEDICARE, OTHER, SELFPAY | END 2021-11-12 18:16 | disposition home or self-care (01) | LOC: LBN 18:15 | PROVIDERS: PCP Nurse Practitioner Family; Visit Provider Urology | DX: R33.9 Retention of urine, unspecified (principal) | CPT/HCPCS: 87086 ==

== ENCOUNTER → 2021-11-23 08:51 | Outpatient (BNVA) | payer MEDICARE, OTHER, SELFPAY | PROVIDERS: PCP Nurse Practitioner Family; Referring Provider Nurse Practitioner Family; Visit Provider Urology | DX: R33.8 Other retention of urine (principal) | CPT/HCPCS: 51728; 51784; 51797 ==

== ENCOUNTER 2021-12-28 15:17 | Outpatient (REF) | payer MEDICARE, OTHER, SELFPAY ==
[2021-12-28 16:23] LABS: Anion Gap 8.1 mmol/L (3-11); BUN 17 mg/dL (7-18); CO2 26.9 mmol/L (21.0-32.0); CREATININE 0.9 mg/dL (0.70-1.30); Calcium 8.9 mg/dL (8.5-10.1); Chloride 99 mmol/L (98-107); Glucose 96 mg/dL (74-106); Potassium 3.9 mmol/L (3.5-5.1); Sodium 134 mmol/L (136-145)
[2021-12-28 16:29] LABS: INR 0.9 (0.9-1.1); Prothrombin Time 9.1 sec (9.3-11.0)
[2021-12-28 17:07] LABS: Iron 56 ug/dL (65-175); Total Iron Binding Capacity 344 ug/dL (250-450); Transferrin Sat 16 % (20-55)
== END 2021-12-28 15:18 | disposition home or self-care (01) ==
LOC: NCHCN 15:17
PROVIDERS: PCP Nurse Practitioner Family; Visit Provider Nurse Practitioner Family
DX: D50.9 Iron deficiency anemia, unspecified (principal); I10 Essential (primary) hypertension; E87.6 Hypokalemia; F10.20 Alcohol dependence, uncomplicated
CPT/HCPCS: 80048; 83540; 83550; 85610

== ENCOUNTER 2021-12-31 15:05 | Outpatient (REF) | payer MEDICARE, OTHER, SELFPAY ==
[2021-12-31 15:37] LABS: HCT 35.9 % (40.0-50.0); HGB 12.3 g/dL (13.5-17.5); MCH 31.6 pg (27.0-33.0); MCHC 34.3 % (32.0-36.0); MCV 92 fL (80-95); MPV 8.8 fL (8.0-11.0); Platelet Count 283 10^3/uL (130-400); RBC 3.89 10^6/uL (4.36-5.78); RDW 14.5 % (11.8-14.1); WBC 7.59 10^3/uL (4.4-10.8)
== END 2021-12-31 15:06 | disposition home or self-care (01) ==
LOC: NCHCN 15:05
PROVIDERS: PCP Nurse Practitioner Family; Visit Provider Registered Nurse
DX: D64.9 Anemia, unspecified (principal)
CPT/HCPCS: 85027

== ENCOUNTER → 2022-01-07 14:24 | Outpatient (BNVA) | payer MEDICARE, OTHER, SELFPAY | PROVIDERS: PCP Nurse Practitioner Family; Referring Provider Nurse Practitioner Family; Visit Provider Urology | DX: R10.32 Left lower quadrant pain (principal); R33.8 Other retention of urine; N39.0 Urinary tract infection, site not specified; R39.89 Other symptoms and signs involving the genitourinary system | CPT/HCPCS: 81003; 99213 ==

== ENCOUNTER 2022-01-07 18:43 | Outpatient (REF) | payer MEDICARE, OTHER, SELFPAY | END 2022-01-07 18:44 | disposition home or self-care (01) | LOC: LBN 18:43 | PROVIDERS: PCP Nurse Practitioner Family; Visit Provider Urology | DX: R39.89 Other symptoms and signs involving the genitourinary system (principal); R33.9 Retention of urine, unspecified; R10.9 Unspecified abdominal pain | CPT/HCPCS: 87077; 87086; 87186 ==

== ENCOUNTER 2022-01-21 17:02 | Outpatient (REF) | payer MEDICARE, OTHER, SELFPAY | END 2022-01-21 17:03 | disposition home or self-care (01) | LOC: LBN 17:02 | PROVIDERS: PCP Nurse Practitioner Family; Visit Provider Urology | DX: R33.9 Retention of urine, unspecified (principal); R39.89 Other symptoms and signs involving the genitourinary system | CPT/HCPCS: 87086 ==

== ENCOUNTER → 2022-02-01 07:57 | Outpatient (BNVA) | payer MEDICARE, OTHER, SELFPAY | PROVIDERS: PCP Nurse Practitioner Family; Referring Provider Nurse Practitioner Family; Visit Provider Urology | DX: R33.8 Other retention of urine (principal); M54.50 Low back pain, unspecified | CPT/HCPCS: 81003; 99214 ==

== ENCOUNTER → 2022-02-02 02:17 | Outpatient (CLI) | payer MEDICARE, OTHER, SELFPAY ==
--- NOTE | 2022-02-02 14:30 | DI.CTLCSR_ITS ---
Exam(s) CT CHEST LUNG CANCER SCREEN EXAM: CT CHEST LUNG CANCER SCREEN CLINICAL HISTORY: CIGARETTE SMOKER, F17.210, LUNG CANCER SCREENING TECHNIQUE: Imaging Protocol: Axial computed tomography images with coronal and sagittal reformatted images were created and reviewed. Low dose screening protocol. COMPARISON: CT ABD PELVIS WITH CONTRAST from 07/16/2008 CR CHEST 2 VIEWS PA,LAT from 08/17/[address] CHEST LUNG CANCER SCREEN from 01/14/2021 CR XR LUMBAR SPINE COMPLETE from 01/14/[address] ABDOMEN PELVIS WO/W from 07/06/2021 FINDINGS: Tracheobronchial tree: No bronchiectasis or mucus plugging.. Mediastinum and Laura: No dominant adenopathy or fluid collection. Pulmonary parenchyma: No consolidation or dominant measurable mass. Mild to moderate multifocal issac eptal and centrilobular emphysema. Mild interstitial changes.. Lingular scarring. No infiltrates. Lung Nodules: None. Pleura: No effusion. No pneumothorax. Heart: The heart is not dilated. Severe coronary artery calcifications are seen. Aorta: Thoracic aorta non-dilated. Upper abdomen: Stable left adrenal low-density nodule consistent with an adenoma. Bones: Degenerative changes. Soft Tissues: Unremarkable. IMPRESSION: No suspicious pulmonary nodules. Lung RADS Cat 1 - Negative: No nodules and definitely benign nodules Lung-RADS 1.0 CATEGORIES: Category 0 - Prior chest CT exam(s) being located for comparison. Category 1 - Annual screening in 12 months. No nodules or definitely benign nodules. Category 2 - Annual screening in 12 months. Benign appearance. Nodules with low likelihood of becomin g active cancer. Category 3 - 6-month follow-up. Probably benign. Short-term follow-up suggested. Nodules with low lik elihood of becoming active cancer. Category 4A - 3-month follow-up and CT/PET if >8 mm in size. Suspicious finding. Findings which requi re additional testing. Category 4B - Findings which require additional testing and tissue sampling. Category 4X - Category 3 or 4 nodules with additional features or imaging findings that increases the suspicion of malignancy. Modifier S- Potentially clinically significant findings (non lung cancer) RADIATION DOSE DELIVERED: 82.47mGy.cm Total DLP 1.84mGy CTDIvol DATA REPOSITORY: All CT scans at this facility are submitted to the National Radiology Data Registry (NRDR) Dose Index Registry (DIR) with the [employer] (ACR). RADIATION OPTIMIZATION: All CT scans at this facility use at least one of these dose optimization te chniques: automated exposure control; mA and/or kV adjustment per patient size (includes targeted exa ms where dose is matched to clinical indication); or iterative reconstruction.
== END ==
PROVIDERS: PCP Nurse Practitioner Family; Visit Provider Nurse Practitioner Family
DX: Z12.2 Encounter for screening for malignant neoplasm of respiratory organs (principal); F17.210 Nicotine dependence, cigarettes, uncomplicated
CPT/HCPCS: 71271

== ENCOUNTER 2022-02-15 19:13 | Outpatient (REF) | payer MEDICARE, SELFPAY ==
[2022-02-15 15:53] LABS: HCT 31.2 % (40.0-50.0); HGB 10.8 g/dL (13.5-17.5); MCH 32.7 pg (27.0-33.0); MCHC 34.6 % (32.0-36.0); MCV 95 fL (80-95); MPV 8.7 fL (8.0-11.0); Platelet Count 342 10^3/uL (130-400); RDW 14.5 % (11.8-14.1); RDW-SD 49.8 fL; WBC 7.04 10^3/uL (4.4-10.8)
== END 2022-02-15 19:14 | disposition home or self-care (01) ==
LOC: NCHCN 19:13
PROVIDERS: PCP Nurse Practitioner Family; Visit Provider Nurse Practitioner Family
DX: D64.9 Anemia, unspecified (principal); R73.03 Prediabetes
CPT/HCPCS: 85027

== ENCOUNTER 2022-03-15 14:00 | Outpatient (REF) | payer MEDICARE, SELFPAY ==
[2022-03-15 16:42] LABS: Bilirubin Negative (Negative); Blood Trace-intact (Negative); Clarity Cloudy (Clear); Glucose Negative (Negative); Ketones Negative (Negative); Leukocyte Esterase Large (Negative); Nitrite Positive (Negative); Urobilinogen 0.2 EU/dL (Up TO 0.2); pH 6.5 (5-8)
[2022-03-15 17:05] LABS: Bacteria Packed HPF (Negative); Crystals Negative HPF (Negative); Epithelial Cells Negative HPF (Negative); Mucus Negative (Negative); RBC 0-2 HPF (0-2); WBC >50 HPF (0-5)
[2022-03-15 17:06] LABS: C & S Indicated? C&S Done As Ordered
== END 2022-03-15 14:01 | disposition home or self-care (01) ==
LOC: LBN 14:00
PROVIDERS: PCP Nurse Practitioner Family; Visit Provider Urology
DX: R31.9 Hematuria, unspecified (principal); R33.9 Retention of urine, unspecified
CPT/HCPCS: 87077; 81003; 81015; 87086; 87186

== ENCOUNTER → 2022-03-31 02:57 | Outpatient (CLI) | payer MEDICARE, OTHER, SELFPAY ==
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
[2022-03-31] MEDS: Barium Sulfate 2% W/V-Berry Smoothie 450 ML BTL PO ×3 (07:46→08:19)
[2022-03-31 08:00] LABS: BUN 14 mg/dL (7-18); CREATININE 0.9 mg/dL (0.70-1.30); Estimated GFR 89.62 (mL/min/1.73m2)
[2022-03-31] MEDS: Omnipaque 350 MG/ML 100 ML BTL IJ (08:19)
== END ==
PROVIDERS: PCP Nurse Practitioner Family; Visit Provider Family Medicine
DX: I25.10 Atherosclerotic heart disease of native coronary artery without angina pectoris (principal); K57.30 Diverticulosis of large intestine without perforation or abscess without bleeding
CPT/HCPCS: 84520; 74177; 82565; J3490

== ENCOUNTER 2022-05-10 15:21 | Outpatient (REF) | payer MEDICARE, OTHER, SELFPAY ==
[2022-05-10 15:08] LABS: Abs Immature Grans 0.01 10^3/uL (0.0-0.06); Absolute Basophil Count 0.04 10^3/uL (0.0-0.2); Absolute Eosinophil Count 0.14 10^3/uL (0.0-0.7); Absolute Lymphocyte Count 1.45 10^3/uL (1.2-3.4); Absolute Monocyte Count 0.78 10^3/uL (0.1-0.8); Absolute Neutrophil Count 5.48 10^3/uL (1.2-6.7); Basophils % 0.5; Eosinophils % 1.8; HCT 36.4 % (40.0-50.0); HGB 12.5 g/dL (13.5-17.5); Immature Grans % 0.1; Lymphocytes % 18.4; MCH 31.4 pg (27.0-33.0); MCHC 34.3 % (32.0-36.0); MCV 92 fL (80-95); MPV 8.8 fL (8.0-11.0); Monocytes % 9.9; Neutrophils % 69.3; Platelet Count 242 10^3/uL (130-400); RBC 3.98 10^6/uL (4.36-5.78); RDW-SD 43.5 fL
[2022-05-10 15:17] LABS: Iron 49 ug/dL (65-175); Total Iron Binding Capacity 341 ug/dL (250-450); Transferrin Sat 14 % (20-55)
[2022-05-10 15:30] LABS: Anion Gap 8.1 mmol/L (3-11); BUN 14 mg/dL (7-18); CO2 26.9 mmol/L (21.0-32.0); CREATININE 0.9 mg/dL (0.70-1.30); Calcium 9.1 mg/dL (8.5-10.1); Chloride 98 mmol/L (98-107); Estimated GFR 89.62 (mL/min/1.73m2); Ferritin 73 ng/mL (26-388); Glucose 101 mg/dL (74-106); Potassium 3.8 mmol/L (3.5-5.1); Sodium 133 mmol/L (136-145)
== END 2022-05-10 15:22 | disposition home or self-care (01) ==
LOC: NCHCN 15:21
PROVIDERS: PCP Nurse Practitioner Family; Visit Provider Family Medicine
DX: D50.9 Iron deficiency anemia, unspecified (principal); E87.6 Hypokalemia; I10 Essential (primary) hypertension
CPT/HCPCS: 80048; 82728; 83540; 83550; 85025

== ENCOUNTER → 2022-08-09 14:21 | Outpatient (BNVA) | payer MEDICARE, OTHER, SELFPAY | PROVIDERS: PCP Nurse Practitioner Family; Visit Provider Urology | DX: R33.9 Retention of urine, unspecified (principal) | CPT/HCPCS: 99213 ==

== ENCOUNTER 2022-09-12 17:31 | Outpatient (REF) | payer MEDICARE, OTHER, SELFPAY ==
[2022-09-12 15:20] LABS: Abs Immature Grans 0.02 10^3/uL (0.0-0.06); Absolute Basophil Count 0.05 10^3/uL (0.0-0.2); Absolute Eosinophil Count 0.16 10^3/uL (0.0-0.7); Absolute Lymphocyte Count 1.31 10^3/uL (1.2-3.4); Absolute Monocyte Count 0.61 10^3/uL (0.1-0.8); Absolute Neutrophil Count 5.48 10^3/uL (1.2-6.7); Basophils % 0.7; Eosinophils % 2.1; HCT 36.6 % (40.0-50.0); HGB 12.4 g/dL (13.5-17.5); Immature Grans % 0.3; Lymphocytes % 17.2; MCH 32.2 pg (27.0-33.0); MCHC 33.9 % (32.0-36.0); MCV 95 fL (80-95); MPV 8.3 fL (8.0-11.0); Neutrophils % 71.7; Platelet Count 293 10^3/uL (130-400); RBC 3.85 10^6/uL (4.36-5.78); RDW 13.2 % (11.8-14.1); RDW-SD 45.4 fL; WBC 7.63 10^3/uL (4.4-10.8)
[2022-09-12 16:25] LABS: ALT 30 U/L (16-63); AST 28 U/L (15-37); Albumin 3.9 g/dL (3.4-5.0); Alkaline Phosphatase 101 U/L (46-116); Anion Gap 9.1 mmol/L (3-11); BUN 14 mg/dL (7-18); Bilirubin, Total 0.5 mg/dL (0.2-1.0); CO2 26.9 mmol/L (21.0-32.0); Calcium 9.2 mg/dL (8.5-10.1); Chloride 99 mmol/L (98-107); Estimated GFR 78.98 (mL/min/1.73m2); Glucose 100 mg/dL (74-106); Potassium 3.7 mmol/L (3.5-5.1); Sodium 135 mmol/L (136-145); Total Protein 7.4 g/dL (6.4-8.2)
== END 2022-09-12 17:32 | disposition home or self-care (01) ==
LOC: NCHCN 17:31
PROVIDERS: PCP Nurse Practitioner Family; Visit Provider Nurse Practitioner Family
DX: I10 Essential (primary) hypertension (principal); E03.9 Hypothyroidism, unspecified; E87.6 Hypokalemia; D50.9 Iron deficiency anemia, unspecified; E61.2 Magnesium deficiency
CPT/HCPCS: 80053; 83735; 84443; 85025

== ENCOUNTER 2022-10-24 12:29 | Outpatient (REF) | payer MEDICARE, OTHER, SELFPAY ==
[2022-10-24 11:14] LABS: Bilirubin Negative (Negative); Blood Negative (Negative); Clarity Sl Cloudy (Clear); Glucose Negative (Negative); Ketones Negative (Negative); Leukocyte Esterase Negative (Negative); Nitrite Positive (Negative); Urobilinogen 0.2 mg/dL (Up to 0.2); pH 7.5 (5-8)
[2022-10-24 11:20] LABS: Bacteria Many HPF (Negative); C & S Indicated? C&S Done As Ordered; Casts Negative LPF (Negative); Crystals Negative HPF (Negative); Epithelial Cells Negative HPF (Negative); Mucus Negative (Negative); Other Cells Negative (Negative); RBC Negative HPF (0-2)
== END 2022-10-24 12:30 | disposition home or self-care (01) ==
LOC: LBN 12:29
PROVIDERS: PCP Nurse Practitioner Family; Visit Provider Urology
DX: R33.9 Retention of urine, unspecified (principal)
CPT/HCPCS: 81003; 81015; 87086

== ENCOUNTER → 2022-10-25 13:53 | Outpatient (BNVA) | payer MEDICARE, OTHER, SELFPAY | PROVIDERS: PCP Nurse Practitioner Family; Referring Provider Nurse Practitioner Family; Visit Provider Urology | DX: R33.9 Retention of urine, unspecified (principal) | CPT/HCPCS: 99213 ==

== ENCOUNTER 2022-11-23 09:22 | Emergency (ER) | payer MEDICARE, OTHER, SELFPAY ==
[2022-11-23 09:29] VITALS: BP 135/78; PULSE 81; RESP 16; TEMP 36.6; O2SAT 99
--- NOTE | 2022-11-23 09:45 | RT.EKG_ITS ---
APPROVED REPORT Exam: Resting ECG Reason for Exam: Chest Pain Patient Location: E HR:76 bpm ECG Measurements Heart Rate 76 AXIS TX 176 P 64 QRSd 99 QRS -15 QT 391 T 49 QTc 442 Conclusion Sinus rhythm...normal P axis, V-rate 60- 99
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
[2022-11-23] MEDS: Cyclobenzaprine 10 MG TAB PO (10:53)
[2022-11-23 10:54] VITALS: BP 135/78; PULSE 81; RESP 16; TEMP 36.6; O2SAT 99
== END 2022-11-23 11:01 | disposition home or self-care (01) ==
PROVIDERS: Emergency Provider Registered Nurse Emergency; PCP Nurse Practitioner Family
DX: S29.011A Strain of muscle and tendon of front wall of thorax, initial encounter (principal); V89.2XXA Person injured in unspecified motor-vehicle accident, traffic, initial encounter
CPT/HCPCS: 93005; 99284; 71046; 93010

== ENCOUNTER 2022-12-06 19:16 | Outpatient (REF) | payer MEDICARE, OTHER, SELFPAY ==
[2022-12-06 20:44] LABS: Absolute Eosinophil Count 0.08 10^3/uL (0.0-0.7); Absolute Lymphocyte Count 1.26 10^3/uL (1.2-3.4); Absolute Monocyte Count 0.87 10^3/uL (0.1-0.8); Absolute Neutrophil Count 7.48 10^3/uL (1.2-6.7); Basophils % 0.4; Eosinophils % 0.8; HCT 35.2 % (40.0-50.0); HGB 12.5 g/dL (13.5-17.5); Immature Grans % 0.4; Lymphocytes % 12.9; MCH 32.6 pg (27.0-33.0); MCHC 35.5 % (32.0-36.0); MCV 92 fL (80-95); Monocytes % 8.9; Neutrophils % 76.6; Platelet Count 299 10^3/uL (130-400); RBC 3.83 10^6/uL (4.36-5.78); RDW 13.4 % (11.8-14.1); RDW-SD 45.6 fL; WBC 9.77 10^3/uL (4.4-10.8)
[2022-12-06 20:45] LABS: Abs Immature Grans 0.04 10^3/uL (0.0-0.06); Absolute Basophil Count 0.04 10^3/uL (0.0-0.2)
[2022-12-06 21:27] LABS: Vitamin B12 681 pg/mL (193-986)
[2022-12-06 21:29] LABS: Folate > 20.0 ng/mL (8.6-20.0)
== END 2022-12-06 19:17 | disposition home or self-care (01) ==
LOC: NCHCN 19:16
PROVIDERS: PCP Nurse Practitioner Family; Visit Provider Nurse Practitioner Family
DX: I10 Essential (primary) hypertension (principal); D50.9 Iron deficiency anemia, unspecified; Z79.899 Other long term (current) drug therapy
CPT/HCPCS: 82607; 82746; 85025

== ENCOUNTER → 2023-02-08 01:00 | Outpatient (CLI) | payer MEDICARE, OTHER, SELFPAY ==
--- NOTE | 2023-02-08 11:09 | DI.CTLCSR_ITS ---
Exam(s) CT CHEST LUNG CANCER SCREEN EXAM: CT CHEST LUNG CANCER SCREEN CLINICAL HISTORY: CIGARETTE SMOKER, F17.210 TECHNIQUE: Imaging Protocol: Axial computed tomography images with coronal and sagittal reformatted images were created and reviewed COMPARISON: CT CT CHEST LUNG CANCER SCREEN from 02/02/2022 FINDINGS: Tracheobronchial tree: Patent where visualized. Pulmonary parenchyma: Emphysematous changes are present in the lungs. There is a calcified granuloma in the left upper lobe. Pleural and parenchymal scarring is present. No focal consolidating infilt rates are seen. Lung Nodules: None. Mediastinum and Laura: No dominant adenopathy or fluid collection. The esophagus is unremarkable. Thyroid gland: Unremarkable. Lymph nodes: Unremarkable. Pleura: No effusion or pneumothorax. Heart: The heart is not dilated. Moderately severe coronary artery calcification and/or stents are pr esent. No pericardial effusion. Aorta: Thoracic aorta non-dilated.Atherosclerosis is present. Upper abdomen: There is a stable left adrenal nodule. Soft Tissues: Unremarkable. Bones: Within normal limits. IMPRESSION: No pulmonary nodules. Lung RADS Cat 1 - Negative: No nodules and definitely benign nodules Lung-RADS 1.0 CATEGORIES: Category 0 - Prior chest CT exam(s) being located for comparison. Category 1 - Annual screening in 12 months. No nodules or definitely benign nodules. Category 2 - Annual screening in 12 months. Benign appearance. Nodules with low likelihood of becomin g active cancer. Category 3 - 6-month follow-up. Probably benign. Short-term follow-up suggested. Nodules with low lik elihood of becoming active cancer. Category 4A - 3-month follow-up and CT/PET if >8 mm in size. Suspicious finding. Findings which requi re additional testing. Category 4B - Findings which require additional testing and tissue sampling. Suspicious finding. Category 4X - Category 3 or 4 nodules with additional features or imaging findings that increases the suspicion of malignancy. Modifier S- Potentially clinically significant finding. (Non lung cancer) RADIATION DOSE DELIVERED: 89.9mGy.cm Total DLP 89.9mGy.cmTotal DLP DATA REPOSITORY: All CT scans at this facility are submitted to the National Radiology Data Registry (NRDR) Dose Index Registry (DIR) with the [employer] (ACR). RADIATION OPTIMIZATION: All CT scans at this facility use at least one of these dose optimization te chniques: automated exposure control; mA and/or kV adjustment per patient size (includes targeted exa ms where dose is matched to clinical indication); or iterative reconstruction.
== END ==
PROVIDERS: PCP Nurse Practitioner Family; Visit Provider Nurse Practitioner Family
DX: F17.210 Nicotine dependence, cigarettes, uncomplicated (principal); Z12.2 Encounter for screening for malignant neoplasm of respiratory organs
CPT/HCPCS: 71271

== ENCOUNTER → 2023-02-10 09:47 | Outpatient (BNVA) | payer MEDICARE, OTHER, SELFPAY | PROVIDERS: PCP Nurse Practitioner Family; Visit Provider Urology | DX: R33.9 Retention of urine, unspecified (principal) | CPT/HCPCS: 99213 ==

== ENCOUNTER 2023-04-17 20:02 | Outpatient (REF) | payer MEDICARE, OTHER, SELFPAY ==
[2023-04-17 21:30] LABS: Anion Gap 7.6 mmol/L (3-11); BUN 13 mg/dL (7-18); CO2 26.4 mmol/L (21.0-32.0); Calcium 9.7 mg/dL (8.5-10.1); Chloride 99 mmol/L (98-107); Estimated GFR 78.49 (mL/min/1.73m2); Glucose 107 mg/dL (74-106); Potassium 3.6 mmol/L (3.5-5.1); Sodium 133 mmol/L (136-145)
== END 2023-04-17 20:03 | disposition home or self-care (01) ==
LOC: NCHCN 20:02
PROVIDERS: PCP Nurse Practitioner Family; Visit Provider Nurse Practitioner Family
DX: I10 Essential (primary) hypertension (principal); K57.90 Diverticulosis of intestine, part unspecified, without perforation or abscess without bleeding
CPT/HCPCS: 80048

== ENCOUNTER 2023-06-14 10:36 | Outpatient (REF) | payer MEDICARE, OTHER, SELFPAY ==
[2023-06-14 09:03] LABS: Bilirubin Negative (Negative); Blood Moderate (Negative); Clarity Cloudy (Clear); Glucose Negative (Negative); Ketones 15 mg/dL (Negative); Leukocyte Esterase Large (Negative); Nitrite Positive (Negative); Urobilinogen 0.2 mg/dL (Up to 0.2)
[2023-06-14 09:42] LABS: Bacteria Many HPF (Negative); C & S Indicated? C&S Done As Ordered; Casts Negative LPF (Negative); Crystals Negative HPF (Negative); Epithelial Cells Rare HPF (Negative); Mucus Negative (Negative); WBC >50 HPF (0-5)
--- OUTSIDE RECORDS SUMMARY | 2023-06-14 10:38 | XMS_ITS | Continuity of Care Document ---
Author Name Unknown Organization [facility] Address [address] [place] [address] Care Team Providers Care Inset Cutter Name Role Phone ASIA PITTMAN Primary Care Physician Encounter [facility] NBR [id number] Date(s): 05/30/23 - 05/30/23 [facility] [address] [place], [place] [address] Encounter Diagnosis Ulcerative colitis(Discharge Diagnosis) - 05/30/23 Adenomatous colon polyp(Discharge Diagnosis) - 05/30/23 Gastric polyp(Discharge Diagnosis) - 05/30/23 Discharge Disposition: Home or Self Care Attending Physician: Josiah Franklin MD Referring Physician: AISA PITTMAN Allergies, Adverse Reactions, Alerts Substance Reaction Severity Status lisinopril Unknown Active sulfa drugs Unknown Active prednisoLONE Severe Active Functional Status 05/30/23 Other exposure to Infectious Disease Non e Medications amLODIPine 10 mg oral tablet 10 mg = 1 tab, Oral, Daily, # 90 tab, 0 Refill(s) Start Date: 05/27/23 Status: Ordered Apriso 0.375 g oral capsule, extended release 0.75 g = 2 cap, Oral, every morning, 0 Refill(s) Start Date: 05/30/23 Status: Ordered atorvastatin 20 mg oral tablet 20 mg = 1 tab, Oral, Daily, # 90 tab, 0 Refill(s) Start Date: 05/27/23 Status: Ordered chlorthalidone 25 mg oral tablet 25 mg = 1 tab, Oral, Daily, # 90 tab, 0 Refill(s) Start Date: 05/27/23 Status: Ordered ciprofloxacin 500 mg oral tablet 500 mg = 1 tab, Oral, every 12 hr, # 20 tab, 0 Refill(s) Start Date: 05/27/23 Stop Date: 06/06/23 Status: Ordered fluocinonide 0.05% topical solution 1 patrice, Topical, BID, # 20 mL, 0 Refill(s) Start Date: 05/27/23 Stop Date: 06/10/23 Status: Ordered levothyroxine 150 mcg (0.15 mg) oral tablet 150 mcg = 1 tab, Oral, Daily, # 90 tab, 0 Refill(s) Start Date: 05/27/23 Status: Ordered omeprazole 40 mg oral delayed release capsule 40 mg = 1 cap, Oral, Daily, # 30 cap, 0 Refill(s) Start Date: 05/27/23 Status: Ordered Potassium Chloride (Eqv-K-Tab) 20 mEq oral tablet, extended release 0 Refill(s) Start Date: 05/27/23 Status: Ordered predniSONE 20 mg oral tablet 20 mg = 1 tab, Oral, Daily, # 10 tab, 0 Refill(s) Start Date: 05/27/23 Status: Ordered triamcinolone 0.1% topical cream 1 patrice, Topical, BID, # 80 g, 0 Refill(s) Start Date: 05/27/23 Status: Ordered Problem List Condition Confirmation Course Effective Dates Status H ealth Status Informant Abnormal weight loss Confirmed Active Peptic duodentitis Confirmed Active Adenomatous polyp of colon Confirmed Active Adenomatous colon polyp Confirmed Active AK - Actinic keratosis Confirmed Active Alcohol abuse Confirmed Active Alcoholism Confirmed Active Bilateral leg cramps Confirmed Active BPH - benign prostatic hyperplasia Confirmed Active CAD - Coronary artery disease Confirmed Active Cervicalgia Confirmed Active Cigarette smoker Confirmed Active Left maxillary fracture Confirmed Active Colonic polyp Confirmed Active Dizziness Confirmed Active Edentulous Confirmed Active Emphysema Confirmed Active Enteritis Confirmed Active Erectile dysfunction Confirmed Active Erosive gastritis Confirmed Active External hemorrhoids Confirmed Active Gastric polyp Confirmed Active Gout Confirmed Active History of COVID-19 Confirmed Active Hyperkalemia Confirmed Active Hyperlipidemia Confirmed Active Hyperplastic polyp Confirmed Active Hypertension Confirmed Active Hypothyroidism Confirmed Active Insomnia Confirmed Active Internal hemorrhoid Confirmed Active Iron deficiency anemia Confirmed Active Lumbar radiculopathy Confirmed Active Nicotine user Confirmed Active Prediabetes Confirmed Active Psoriasis Confirmed Active Pulmonary infiltration Confirmed Active Seborrheic keratosis Confirmed Active Sessile serrated adenoma Confirmed Active Tubular adenoma Confirmed Active Ulcerative colitis Confirmed Active Ulcerative colitis Confirmed Active Procedures Procedure Date Related Diagnosis Body Site Status Colonoscopy 05/31/21 Completed Esophagogastroduodenoscopy 05/31/21 Completed Colonoscopy 11/13/17 Completed Angioplasty 1 2010 Completed Plating 2 Completed 1angioplasty with stent placement 2left maxillary plating Vital Signs Most recent to oldest [Reference Range]: 1 Temperature Temporal Artery [36-38 Deg C ] 36.8 Deg C (05/30/23 2:01 PM) Apical Heart Rate [60-100 bpm] 94 bpm (05/30/23 2:01 PM) Blood Pressure [90-120/60-90 mmHg] 132/6 9mmHg *HI* (05/30/23 2:01 PM) Weight 68.9 kg (05/30/23 2:01 PM) Weight Measured (lbs) 151.898 lb (05/30/23 2:01 PM) Weight Dosing 68.900 kg (05/30/23 2:01 PM) [place] Body Weight Calculated 70.7 kg (05/30/23 2:01 PM) Height 175.26 cm (05/30/23 2:01 PM) Height/Length Measured (inches) 69 inch (05/30/23 2:01 PM) BSA Measured 1.83 m2 (05/30/23 2:01 PM) Body Mass Index 22.43 kg/m2 (05/30/23 2:01 PM) Social History Social History Type Response Tobacco Current everyday tob acco user Tobacco Use:. Sex Physician Outpatient Note * Josiah Franklin MD: PERFORM Event Display: Office Clinic Note Physician Authored Date: [id number] LIVIER VARGAS :1945 Age:77 years Sex:Male Visit Date:05/30/2023 Primary Care Physician: ASIA PITTMAN Chief Complaint Ulcerative colitis. History of Present Illness Initial visit for this 77-year-old white male patient??of??[place]??MARK Owens with a history of longstanding??ulcerative colitis.?? Patient reports being diagnosed approximate 25 years ago.?? He hasbeen on??mesalamine??for??over years.?? He has been on the current dose of Apriso, 2 capsules/day??for 6 years. ??The patient's last colonoscopy??was on 06/01/2021 which was a complete examination tothe cecum. ??The terminal ileum was not examined. ??Preparation was described as good.?? He was found to have sigmoid diverticulosis,??and a sessile serrated adenoma.?? 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 Patient has longstanding??heartburn which is well- controlled on omeprazole 40 mg daily.?? Denies difficulty swallowing.?? Patient had a??period of lower abdominal pain with constipation??recently and was treated with a 5-day steroid taper??with a return to his baseline.?? Currently he denies abdominal pain, constipation, diarrhea, or rectal bleeding.?? He has no first-degree relatives with inflammatory bowel disease or colorectal cancer. Review of Systems Pertinent positives and negatives documented in the HPI. Physical Exam Vitals & Measurements T:??36.8?C ??(Temporal Artery)?? HR:??94??(Apical)?? BP:??132/69?? SpO2:??98%?? HT:??175.26??cm?? WT:??68.9??kg?? BMI:??22.43?? BSA:??1.83?? Well-developed well-nourished white male no acute distress Lungs: Clear to auscultation bilaterally Heart: Regular rhythm S1-S2 Abdomen: Normoactive bowel sounds, soft, nontender, no masses organomegaly Assessment/Plan 1.??Ulcerative colitis??K51.90 Restaging segmental??biopsies were not performed??at his last colonoscopy??and we do not know??the??extent??of disease.?? Although the patient appeared to be in endoscopic remission??at the time of his last colonoscopy on 06/01/2021??we do not know whether or not he had??achieved deep/histologic remission.?? He did have a sessile serrated adenoma??at that time.?Ulcerative colitis??proximal to the??rectum,??of at least??8 years duration??increases the risk of dysplasia/colorectal cancer. ??Given that we do not know the extent of his??ulcerative colitis, I would recommend??repeat colonoscopy??for??dysplasia surveillance??every 2 years.?? He is currently due for repeat colonoscopy.?? He would appear to be asymptomatic at this time??and should continue current dose of mesalamine.?? Would recommend annual??CBC and CMP.?? Patient stated that he wished to have his endoscopic procedures donecloser to home??and will discuss this with his primary care physician. 2.??Adenomatous colon polyp??D12.6 See above. 3.??Gastric polyp??K31.7 Although small??hyperplastic polyps??are??generally??not considered??precancerous,??GI guidelines??recommend resection??of??hyperplastic polyps in the stomach that measure??at least 1 cm.?? Accordingto the patient's previous endoscopist??the polyp that was biopsied but not resected??was 1 cm.?? I would recommend that??he undergo repeat EGD??to resect??the??1 cm hyperplastic polyp.?? Patient states that he wishes to have??endoscopic procedures closer to home.?? He will discuss this with his primary care physician.?Although a follow-up appointment was not scheduled??although we would be happy to see him back as needed. Problem List/Past Medical History Ongoing Abnormal weight loss Adenomatous colon polyp Adenomatous polyp of colon AK - Actinic keratosis Alcohol abuse Alcoholism Bilateral leg cramps BPH - benign prostatic hyperplasia CAD - Coronary artery disease Cervicalgia Cigarette smoker Colonic polyp Dizziness Edentulous Emphysema Enteritis Erectile dysfunction Erosive gastritis External hemorrhoids Gastric polyp Gout History of COVID-19 Hyperkalemia Hyperlipidemia Hyperplastic polyp Hypertension Hypothyroidism Insomnia Internal hemorrhoid Iron deficiency anemia Left maxillary fracture Lumbar radiculopathy Nicotine user Peptic duodentitis Prediabetes Psoriasis Pulmonary infiltration Seborrheic keratosis Sessile serrated adenoma Tubular adenoma Ulcerative colitis Ulcerative colitis Historical No qualifying data Procedure/Surgical History ???Colonoscopy (06/01/2021)???Esophagogastroduodenoscopy (06/01/2021)???Colonoscopy (11/14/2017)???Angioplasty (2010)???Plating Medications amLODIPine 10 mg oral tablet, 10 mg= 1 tab, Oral, Daily Apriso 0.375 g oral capsule, extended release, 0.75 g= 2 cap, Oral, every morning atorvastatin 20 mg oral tablet, 20 mg= 1 tab, Oral, Daily chlorthalidone 25 mg oral tablet, 25 mg= 1 tab, Oral, Daily ciprofloxacin 500 mg oral tablet, 500 mg= 1 tab, Oral, every 12 hr fluocinonide 0.05% topical solution, 1 patrice, Topical, BID levothyroxine 150 mcg (0.15 mg) oral tablet, 150 mcg= 1 tab, Oral, Daily omeprazole 40 mg oral delayed release capsule, 40 mg= 1 cap, Oral, Daily Potassium Chloride (Eqv-K-Tab) 20 mEq oral tablet, extended release predniSONE 20 mg oral tablet, 20 mg= 1 tab, Oral, Daily triamcinolone 0.1% topical cream, 1 patrice, Topical, BID Allergies prednisoLONE lisinopril sulfa drugs Social History Alcohol Current, 3-5 times per week Electronic Cigarette/Vaping Electronic Cigarette Use: Never. Substance Use Never Tobacco Current everyday tobacco user Tobacco Use:. Family History Cancer: Brother. Heart disease: Mother and Father. Family Member(s): ?? FATHER, at age: Unknown. Cause of : Family Member(s): ?? MOTHER, at age: Unknown. Cause of : Electronically Signed on 05/30/23 02:49 PM Josiah Franklin MD Patient Care team information Care Team Personnel Name: ASIA PITTMAN Position: No Access Member Role: Primary Care Physician Address: Address: [facility] [address]
== END 2023-06-14 10:37 | disposition home or self-care (01) ==
LOC: LBN 10:36
PROVIDERS: PCP Nurse Practitioner Family; Visit Provider Urology
DX: R33.9 Retention of urine, unspecified (principal); R82.998 Other abnormal findings in urine
CPT/HCPCS: 87077; 81003; 81015; 87086; 87186

== ENCOUNTER → 2023-07-22 13:07 | Outpatient (REF) | payer MEDICARE, OTHER, SELFPAY ==
--- NOTE | 2023-07-22 13:00 | DI.RAD_ITS ---
Exam(s) XR KNEE RT 4V AP,LAT,RUPA,PAT EXAM: XR KNEE RT 4V AP,LAT,RUPA,PAT CLINICAL HISTORY: evaluate pathology. TECHNIQUE: 2D digital imaging was performed. Three views. COMPARISON: CR RIGHT KNEE 3 VIEWS from 05/22/2013 FINDINGS: BONES: No acute fracture is present. No bony destructive lesion is seen. JOINTS: The knee is normally aligned. No joint effusion is seen. Chondrocalcinosis. Mild degenerat dickson changes. SOFT TISSUE: Vascular calcifications. IMPRESSION: No acute abnormality. DATA REPOSITORY: RADIATION DOSE DELIVERED:
--- NOTE | 2023-07-22 13:45 | DI.VRAD_ITS ---
PROCEDURE INFORMATION: Exam: XR Right Knee Exam date and time: 07/22/2023 1:15 PM Age: 77 years old Clinical indication: Pain; Knee; Right TECHNIQUE: Imaging protocol: Radiologic exam of the right knee. Views: 4 or more views. COMPARISON: No relevant prior studies available. FINDINGS: Bones/joints: No knee joint effusion. There is chondrocalcinosis the knee joint. There is neutral patellar tracking. No acute fracture or dislocation. Well corticated ossification at the medial plateau, from prior injury. Degenerative of the knee joint with tiny medial marginal osteophytes. Soft tissues: Normal. Vasculature: There are vascular calcifications. IMPRESSION: No acute fracture or dislocation. Dictated and Authenticated by: Ranjit Neff MD. Ordering:CK Hamilton MD
== END ==
LOC: DI 13:07
PROVIDERS: PCP Nurse Practitioner Family; Visit Provider Nurse Practitioner Family
DX: M25.561 Pain in right knee (principal)
CPT/HCPCS: 73564

== ENCOUNTER → 2023-08-04 10:08 | Outpatient (BNVA) | payer MEDICARE, OTHER, SELFPAY | PROVIDERS: PCP Nurse Practitioner Family; Referring Provider Nurse Practitioner Family; Visit Provider Urology | DX: R33.8 Other retention of urine (principal); Z87.440 Personal history of urinary (tract) infections | CPT/HCPCS: 99213 ==

== ENCOUNTER → 2023-10-12 13:11 | Outpatient (BNVA) | payer MEDICARE, OTHER, SELFPAY | PROVIDERS: PCP Nurse Practitioner Family; Referring Provider Nurse Practitioner Family | DX: M17.11 Unilateral primary osteoarthritis, right knee (principal); M11.261 Other chondrocalcinosis, right knee | CPT/HCPCS: 99213 ==

== ENCOUNTER 2023-10-17 16:25 | Outpatient (REF) | payer MEDICARE, OTHER, SELFPAY ==
[2023-10-17 19:20] LABS: HCT 35.8 % (40.0-50.0); HGB 12.6 g/dL (13.5-17.5); MCH 32.1 pg (27.0-33.0); MCHC 35.2 % (32.0-36.0); MCV 91 fL (80-95); MPV 8.4 fL (8.0-11.0); Platelet Count 267 10^3/uL (130-400); RBC 3.92 10^6/uL (4.36-5.78); RDW 13.4 % (11.8-14.1); RDW-SD 45.4 fL; WBC 9.57 10^3/uL (4.4-10.8)
[2023-10-17 19:35] LABS: Iron 36 ug/dL (65-175); Total Iron Binding Capacity 291 ug/dL (250-450)
[2023-10-17 19:47] LABS: Hemoglobin A1C 5.8 % (<5.7)
[2023-10-17 19:55] LABS: ALT 26 U/L (16-63); AST 22 U/L (15-37); Albumin 3.8 g/dL (3.4-5.0); Alkaline Phosphatase 85 U/L (46-116); Anion Gap 9.1 mmol/L (3-11); BUN 11 mg/dL (7-18); Bilirubin, Total 0.3 mg/dL (0.2-1.0); CO2 26.9 mmol/L (21.0-32.0); CREATININE 0.9 mg/dL (0.70-1.30); Calcium 9.1 mg/dL (8.5-10.1); Chloride 100 mmol/L (98-107); Estimated GFR 89.07 (mL/min/1.73m2); Ferritin 111 ng/mL (26-388); Glucose 75 mg/dL (74-106); Potassium 3.8 mmol/L (3.5-5.1); Sodium 136 mmol/L (136-145); Total Protein 6.7 g/dL (6.4-8.2)
== END 2023-10-17 16:26 | disposition home or self-care (01) ==
LOC: NCHCN 16:25
PROVIDERS: PCP Nurse Practitioner Family; Visit Provider Nurse Practitioner Family
DX: I10 Essential (primary) hypertension (principal); R73.09 Other abnormal glucose
CPT/HCPCS: 80053; 85027; 82728; 83036; 83540; 83550; 84443

== ENCOUNTER → 2023-12-01 00:20 | Outpatient (CLI) | payer MEDICARE, OTHER, SELFPAY ==
--- NOTE | 2023-12-01 14:00 | DI.US_ITS ---
APPROVED REPORT EXAM: Comprehensive 2D, Doppler, and color-flow Echocardiogram Patient Location: Out-Patient Manager Night: Marcos Smith RDCS (AE) Indications: HTN Conclusion Normal left ventricular wall thickness and chamber size. Ejection fraction is 55 to 60%. Wall motio n is normal Normal right ventricular size and function Both atria are normal in size Aortic valve is sclerotic and trileaflet without stenosis or regurgitation Normal mitral valve with mild regurgitation Normal tricuspid valve with mild regurgitation. Estimated right ventricular systolic pressure is 27 mmHg Wall motion Left Ventricle The left ventricle is normal size. The left ventricular systolic function is normal. The left ventric ular ejection fraction is within the normal range. There is normal left ventricular wall thickness. T here is normal LV segmental wall motion. There is no ventricular septal defect visualized. LVEF is 55 -60%. Right Ventricle The right ventricle is normal size. The right ventricular systolic function is normal. Atria The left atrium size is normal. The right atrium size is normal. The interatrial septum is intact wit h no evidence for an atrial septal defect. Aortic Valve The Aortic valve is mildly sclerotic. Aortic valve is trileaflet. There is no aortic valvular stenosi s. No aortic regurgitation is present. Mitral Valve The mitral valve is normal in structure. No evidence of mitral valve stenosis. Mild mitral regurgitat ion. Tricuspid Valve The tricuspid valve is normal in structure. There is no tricuspid valve stenosis. Mild tricuspid regu rgitation. The RVSP is 27.1 mmHg. Pulmonic Valve The pulmonary valve is normal in structure. There is no pulmonic valvular stenosis. There is no pulmo philippe valvular regurgitation. Great Vessels The aortic root is normal in size. Ascending aorta is not well visualized. Aortic arch is normal in c aliber. IVC is normal in size and collapses >50% with inspiration. Pericardium There is no pericardial effusion. 2D Dimensions IVSD d PLAX 0.84 cm M: 0.6-1.2 Ao Root d 3.67 cm M: 3.1 - 3.7 LVPW d PLAX 0.75 cm M: 0.6 - 1.2 LVID d PLAX 4.58 cm M: 4.2 - 5.8 LVDs 3.11 cm M: 2.5 - 4.0 LV EF Teichholz 60.4 % FS 32.16 % LV EDV (Teich) 96.4 mL LV ESV (Teich) 38.2 mL Stroke Vol Index (Teich) 31.50 M-Mode TAPSE 2.65 cm (M/F) >1.7 Auto EF LV EDV A4C 121.3 mL LV EDV A2C 115.3 mL LV EDV BP 122.5 mL LV ESV A4C 53.4 mL LV ESV A2C 46.9 mL LV ESV BP 50.8 mL LVEF(%) A4C 56.0 % LVEF(%) A2C 59.3 % LVEF(%) BP 58.6 % LV SV A4C 67.9 ml LV SV A2C 68.3 ml LV SV BP 71.7 ml LV CO A4C 5.4 L/min LV CO A2C 5.4 L/min LV CO BP 5.4 L/min HR A4C 79.13 BPM HR A2C 78.95 BPM LV EDV Index (BP) LA Volume LA Length A4C 4.5 cm LA Length A2C 4.2 cm LA Area A4C s 16.57 cm2 LA Area A2C s 17.53 cm2 LA Vol A4C A-L 51.88 mL LA Vol A2C A-L 62.11 mL LA Vol Biplane A-L 58.7 mL LA Vol/BSA A4C A-L LA Vol/BSA A2C A-L LA Vol/BSA BP A-L 31.7 mL/m2 LA Vol A4C MOD 46.1 mL LA Vol A2C MOD 52.4 mL LA Vol BP MOD 50.4 mL RA Volume RA Area A4C 14.8 cm2 RA ESV A4C (A-L) 37.1mL RA Vol/BSA A4C A-L RA Length A4C 5.0 cm RA ESV A4C (MOD) 35.0mL LV Diastology MV E' medial 0.072 (>0.07 m/s) MV E Vmax 0.60 (0.4-1.3 m/s) MV E/E' MED 8.34 (<14) MV A Vmax 0.70 (0.4-1.3 m/s) MV E' lateral 0.092 (>0.1 m/s) E/A Ratio 0.9 MV E/E' LAT 6.49 (<14) MV E' Average 0.082 m/s MV E/E'(average) 7.30 Aortic Valve AoV Vmax 1.12 m/s LVOT Vmax 0.88 m/s AoV Peak Grad 5.1 mmHg LVOT Peak Grad 3.1 mmHg AoV Area (Vmax) 3.05 cm2 LVOT VTI 0.184 m AoV VTI 0.241 m LVOT Mean Grad 1.6 mmHg AoV Mean Dom. 0.80 m/s LVOT SV 71.75 mL AoV Mean Grad 2.9 mmHg LVOT Diam s 2.20 cm AoV Area (VTI) 2.98 cm2 Velocity Ratio 0.79 Mitral Valve MV DT 233 (160-240 msec) Pulmonary Valve PV Vmax 0.75 (0.5-1.5 m/s) RVOT Vmax 0.66 m/s PV Peak Grad 2.2 mmHg RVOT Peak Gr. 1.8 mmHg PV Mean Dom 0.57 m/s RVOT VTI 0.120 m PV Mean Grad 1.5 mmHg RVOT Mean Gr. 1.0 mmHg Tricuspid Valve RA Pressure 3.00 mmHg TR Vmax 2.45 m/s TR Peak Grad 24.0 mmHg RVSP (TR) 27.1 mmHg
== END ==
PROVIDERS: PCP Nurse Practitioner Family; Visit Provider Nurse Practitioner Family
DX: I10 Essential (primary) hypertension (principal)
CPT/HCPCS: 93306

== ENCOUNTER 2023-12-21 18:57 | Outpatient (REF) | payer MEDICARE, OTHER, SELFPAY ==
[2023-12-21 19:14] LABS: Bilirubin Negative (Negative); Blood Negative (Negative); Clarity Sl Cloudy (Clear); Glucose Negative (Negative); Ketones Negative (Negative); Leukocyte Esterase Small (Negative); Nitrite Positive (Negative); Specific Gravity 1.015 (1.005-1.025); Urobilinogen 0.2 mg/dL (Up to 0.2)
[2023-12-21 19:21] LABS: Bacteria Many HPF (Negative); C & S Indicated? C&S Done As Ordered; Casts Negative LPF (Negative); Crystals Negative HPF (Negative); Epithelial Cells Negative HPF (Negative); Mucus Negative (Negative); RBC Negative HPF (0-2); WBC >50 HPF (0-5)
== END 2023-12-21 18:58 | disposition home or self-care (01) ==
LOC: LBN 18:57
PROVIDERS: PCP Nurse Practitioner Family; Visit Provider Urology
DX: R33.9 Retention of urine, unspecified (principal); R82.998 Other abnormal findings in urine
CPT/HCPCS: 87077; 81003; 81015; 87086; 87186

== ENCOUNTER 2024-01-09 18:18 | Outpatient (REF) | payer MEDICARE, OTHER, SELFPAY ==
[2024-01-09 15:28] LABS: Bilirubin Negative (Negative); Blood Trace-intact (Negative); Clarity Clear (Clear); Glucose Negative (Negative); Ketones Trace mg/dL (Negative); Leukocyte Esterase Small (Negative); Nitrite Positive (Negative)
[2024-01-09 16:50] LABS: Bacteria Many HPF (Negative); C & S Indicated? Yes; Casts Negative LPF (Negative); Crystals Negative HPF (Negative); Epithelial Cells Rare HPF (Negative); Mucus Negative (Negative); RBC 0-2 HPF (0-2); WBC 20-50 HPF (0-5)
== END 2024-01-09 18:19 | disposition home or self-care (01) ==
LOC: LBN 18:18
PROVIDERS: PCP Nurse Practitioner Family; Visit Provider Urology
DX: R33.8 Other retention of urine (principal); R82.998 Other abnormal findings in urine
CPT/HCPCS: 87077; 81003; 81015; 87086; 87186

== ENCOUNTER 2024-01-17 15:24 | Emergency (ER) | payer MEDICARE, OTHER, SELFPAY ==
[2024-01-17 15:27] VITALS: BP 131/56; PULSE 71; RESP 16; TEMP 36.9; O2SAT 97
--- NOTE | 2024-01-17 15:30 | DI.RAD_ITS ---
Exam(s) XR ELBOW RT COMPLETE EXAM: XR ELBOW RT COMPLETE CLINICAL HISTORY: pain, injury. TECHNIQUE: 2D digital imaging was performed. Three views. COMPARISON: No exams were available for comparison FINDINGS: BONES: No acute fracture is present. No bony destructive lesion is seen.Large olecranon spur. Spurri ng at coronoid process. JOINTS: The elbow is normally aligned. No joint effusion is seen. Periarticular spurring. Joint spac es are maintained. SOFT TISSUE: Normal. IMPRESSION: No acute abnormality. DATA REPOSITORY: RADIATION DOSE DELIVERED:
--- NOTE | 2024-01-17 16:05 | ED.GENADUL_ITS ---
Discharge Plan Discharge Details Chief Complaint: Orthopedic Primary Care Provider: JOE FULLER ED Provider: Ken Guillermo Home Meds and New Rx's Prescriptions: No Action amlodipine 10 mg tablet 10 mg PO DAILY Qty: 90 3RF atorvastatin [Lipitor] 20 mg tablet 20 mg PO DAILY Qty: 90 3RF triamcinolone acetonide 0.1 % cream 1 applic Topical BID PRN (Reason: psoriasis) Qty: 80 0RF chlorthalidone 25 mg tablet 25 mg PO DAILY gabapentin 300 mg capsule 300 mg PO PRN PRN Rx Instructions: Take 1-2 capsules by mouth Three times daily. levothyroxine 150 mcg Tablet 150 mcg PO DAILY aspirin 81 mg tablet,delayed release (DR/EC) 81 mg PO DAILY albuterol sulfate 90 mcg/actuation HFA aerosol inhaler 2 puff inhalation Q6H PRN (Reason: shortness of breath or wheezing) Qty: 8.5 0RF (DME) Aerochamber MV Spacer See Rx Instructions .Route Qty: 1 0RF Rx Instructions: As directed lidocaine HCl 2 % jelly in applicator 1 applic intra-urethral 4-6XD PRN (Reason: catheter insertion) Qty: 500 12RF potassium chloride 20 mEq tablet,ER particles/crystals 20 meq PO DAILY ferrous sulfate 325 mg (65 mg iron) tablet 325 mg PO DAILY losartan 25 mg tablet 12.5 mg PO DAILY omeprazole 40 mg capsule,delayed release(DR/EC) 40 mg PO DAILY levofloxacin 250 mg tablet 250 mg PO DAILY Qty: 10 0RF cyclobenzaprine 10 mg tablet 10 mg PO TID PRN (Reason: muscle spasm) Qty: 10 0RF HPI General Mode of arrival: ambulatory . Date/Time Provider Initiated Documentation: 01/17/24 15:31 . Limitations to Documentation: no limitations . Information obtained by: patient . HPI Narrative: 78-year-old male presents with chief complaint of right elbow pain. Patient notes he banged his elbow yesterday on a metal chair. Pain is moderate and worse when he hyper flexes his elbow. Related Data Home Medications ?Medication ?Instructions ?Recorded ?Confirmed amlodipine 10 mg tablet 10 mg PO DAILY #90 tab-caps 08/27/19 10/12/23 atorvastatin 20 mg tablet (Lipitor) 20 mg PO DAILY #90 tabs 08/27/19 10/12/23 triamcinolone acetonide 0.1 % 1 applic topical BID PRN psoriasis 08/27/19 10/12/23 topical cream #80 grams ferrous sulfate 325 mg (65 mg 325 mg PO DAILY 04/28/21 10/12/23 iron) tablet losartan 25 mg tablet 12.5 mg PO DAILY 04/28/21 10/12/23 potassium chloride 20 mEq 20 meq PO DAILY 04/28/21 10/12/23 tablet,extended release(part/cryst) omeprazole 40 mg capsule,delayed 40 mg PO DAILY 07/22/21 10/12/23 release chlorthalidone 25 mg tablet 25 mg PO DAILY 08/10/21 10/12/23 gabapentin 300 mg capsule 300 mg PO PRN PRN 08/10/21 10/12/23 levothyroxine 150 mcg tablet 150 mcg PO DAILY 08/10/21 10/12/23 cyclobenzaprine 10 mg tablet 10 mg PO TID PRN muscle spasm #10 11/23/22 10/12/23 tabs albuterol sulfate 90 mcg/actuation 2 puff inhalation Q6H PRN 07/12/23 10/12/23 aerosol inhaler shortness of breath or wheezing #8.5 grams aspirin 81 mg tablet,delayed 81 mg PO DAILY 07/12/23 10/12/23 release inhalational spacing device #1 ea 07/12/23 10/12/23 (Aerochamber MV spacer) lidocaine HCl 2 % mucosal jelly in 1 applic intra-urethral 4-6XD PRN 08/04/23 10/12/23 applicator catheter insertion #500 mL levofloxacin 250 mg tablet 250 mg PO DAILY antibiotic #10 tabs 01/11/24 Previous Rx's ?Medication ?Instructions ?Recorded amlodipine 10 mg tablet 10 mg PO DAILY #90 tab-caps 08/27/19 atorvastatin 20 mg tablet (Lipitor) 20 mg PO DAILY #90 tabs 08/27/19 triamcinolone acetonide 0.1 % 1 applic topical BID PRN psoriasis 08/27/19 topical cream #80 grams cyclobenzaprine 10 mg tablet 10 mg PO TID PRN muscle spasm #10 11/23/22 tabs albuterol sulfate 90 mcg/actuation 2 puff inhalation Q6H PRN 07/12/23 aerosol inhaler shortness of breath or wheezing #8.5 grams inhalational spacing device #1 ea 07/12/23 (Aerochamber MV spacer) lidocaine HCl 2 % mucosal jelly in 1 applic intra-urethral 4-6XD PRN 08/04/23 applicator catheter insertion #500 mL levofloxacin 250 mg tablet 250 mg PO DAILY antibiotic #10 tabs 01/11/24 Allergies Allergy/AdvReac Type Severity Reaction Status Date / Time Sulfa (Sulfonamide Allergy Intermediate HIGH FEVER Verified 10/12/23 13:22 Antibiotics) lisinopril AdvReac Mild COUGH Verified 10/12/23 13:22 prednisone AdvReac Unknown DELIRIUM Verified 10/12/23 13:22 General Stated Complaint: Orthopedic SHARON: 4 Review of Systems Musculoskeletal Musculoskeletal: Reports as per HPI Exam Extrem Right upper extremity: elbow/forearm Details: tenderness Location: of the olecranon, swelling Location: of the olecranon and abnormal ROM Details: pain with active ROM during Details: with flexion; no unusual warmth, no ecchymosis and no crepitus Other: Distal right upper extremity motor and sensation intact Course Vital Signs Vital signs: Vital Signs Temperature 36.9 C 01/17/24 15:27 Pulse 71 01/17/24 15:27 Respiratory Rate 16 01/17/24 15:27 Blood Pressure 131/56 L 01/17/24 15:27 Pulse Oximetry 97 01/17/24 15:27 Temperature 36.9 C 01/17/24 15:27 Temperature Source Temporal Artery Scan 01/17/24 15:27 Pulse 71 01/17/24 15:27 Respiratory Rate 16 01/17/24 15:27 Blood Pressure 131/56 L 01/17/24 15:27 Pulse Oximetry 97 01/17/24 15:27 Medical Decision Making 78-year-old male here with injury to his right elbow, tender posterior elbow with associated swelling and pain with hyper flexion. Suspect bursitis versus less likely fracture. Plan to obtain x-ray. Will give ibuprofen PO. Quality:SDOH Health Related Social Needs: No Data to Display PFSH All Active Problems Chondrocalcinosis of right knee (Acute) Arthritis of right knee (Acute) Lumbar radiculopathy (Acute) Urinary retention with incomplete bladder emptying (Acute) Esophagitis (Acute) Gastritis (Acute) Duodenitis (Acute) Sessile colonic polyp (Acute) Tubulovillous adenoma (Acute) Anemia (Chronic) Pain of right thigh (Acute) Muscle spasm (Acute) Medical History Leg cramps Lumbar radiculopathy Persistent insomnia Dizziness Dilatation of kidney collecting system Anemia Pulmonary infiltrates Cigarette smoker History of adenomatous polyp of colon Ankle pain, left Hypokalemia Nocturnal leg cramps Erectile dysfunction Sciatica Edentulous Prediabetes Alcohol consumption heavy Fibula fracture Gout Lateral epicondylitis Urinary disorder Surgical History History of esophagogastroduodenoscopy (EGD) (~06/01/21) History of colonoscopy with polypectomy (~06/01/21) Stent placement (~2010) LAD x 3- Last saw cardiology 2016. F/U with PCP Colonoscopy - MAC (11/14/17) Family History Mother , age 83 Essential hypertension Heart disease Father , age 75 Heart disease Sister No problems noted. Brother , age 68 Heart disease Alcohol abuse Maternal Grandfather No problems noted. Maternal Grandmother No problems noted. Sister No problems noted. Sister No problems noted. Son No problems noted. Son No problems noted. Daughter No problems noted. Daughter No problems noted. Social History Smoking/Tobacco Use Status: Current every day Tobacco Type: cigarettes Years smoked: 50 Quit status: has quit before Smoking risk assessment performed?: Yes Alcohol Intake: current Alcohol Intake frequency: 3 or more drinks per day Alcohol type: beer Drug use: Never Substance use type: does not use Caregiver/Support person: No Household members: spouse Communication Needs: None Do you need help understanding health information?: Rarely Pets and animals: Yes Pets and animals: dog(s) Sexually active: No Do you think of yourself as: straight/heterosexual Current gender identity: male What is your relationship status?: How often do you talk on the phone with friends or family?: three or more times per week How often do you get together with friends or relatives?: decline to answer How often do you attend christian or uatsdin services?: decline to answer Do you belong to any clubs or organized social groups?: no Panel score (0-1 are the most socially isolated patients): 2 What type of physical activity do you participate in: none Jennifer/Congregation: [employer] jennifer needs: No Seatbelt use: sometimes Drive intox or ride w/intox otr company driver: No Do you feel safe at home: Yes Do you feel safe in your relationship?: Yes Additional Social history: at bedside
[2024-01-17] MEDS: Ibuprofen 600 MG TAB PO (16:50)
--- NOTE | 2024-01-17 16:56 | W.EDPROG ---
Date of service: 01/17/24 Time of Service: 16:57 Medical Decision Making This dictation utilizes lsero-rs-odra dictation software and may contain unedited grammatical errors. Patient seen in sign-out from Dr. Guillermo, please see his note. Essentially, this 78 y/o M presents to ED today with a chief complaint of bumping his R elbow on a metal chair yesterday and continuing to have pain and limit to ROM. Patient signed out with pending XR - low suspicion for fracture, likely contusion/bursitis, likely NSAIDs and sling PRN. Patients' medical history: History of alcohol use disorder, hyperlipidemia, hypertension, various orthopedic problems and history, peripheral neuralgia, COPD. Family and social history: Noncontributory. Pertinent exam findings / vital signs include swelling to right elbow without crepitus, neurovascular intact distal. Differential / pathologies of concern include low suspicion of fracture likely bursitis/contusion. Diagnostic studies of: -XR R elbow-no acute fracture seen. Interventions of: -Counseled on therapeutic APAP/NSAIDs, RICE therapy, sling as needed but not to overuse sling to prevent stiffness. ED Course/Assessment/Plan: 78-year-old male presents to the ED after hitting his right elbow on a metal chair yesterday, he is right-hand dominant he is signed out with pending x-ray which is negative for fracture, he was provided a sling and counseled on RICE therapy and therapeutic dosing Tylenol and NSAIDs and to follow-up with orthopedics for any prolonged pain and limited range of motion or other concerns. Strict return to ED criteria for signs of neurovascular compromise like complete numbness distal. Findings not consistent with fracture, neurovascular compromise. Disposition of contusion of right elbow. Patient verbalized understanding of the plan and return to ED criteria and engaged in shared decision making. Medical Records Medical records reviewed: Yes I reviewed the patient's medical records. Imaging Data Radiologic Study: Attestation: I personally reviewed and interpreted this imaging study as follows: Imaging: X-Ray Radiologist's impression: EXAM: XR ELBOW RT COMPLETE CLINICAL HISTORY: pain, injury. TECHNIQUE: 2D digital imaging was performed. Three views. COMPARISON: No exams were available for comparison FINDINGS: BONES: No acute fracture is present. No bony destructive lesion is seen.Large olecranon spur. Spurring at coronoid process. JOINTS: The elbow is normally aligned. No joint effusion is seen. Periarticular spurring. Joint spaces are maintained. SOFT TISSUE: Normal. IMPRESSION: No acute abnormality. Quality:SDOH Health Related Social Needs: No Data to Display Sign Out Sign Out Data: Sign Out Comment: Follow-up x-ray of the elbow. Suspect bursitis. Plan for sling and NSAID. Last updated by Ken Guillermo MD at 01/17/24 16:55 Discharge Plan Disposition Patient Disposition: Home Condition: Stable Discharge Details Clinical Impression: Contusion of right elbow Primary Care Provider: JOE FULLER ED Provider: Yung Lassiter Home Meds and New Rx's Prescriptions: Continued amlodipine 10 mg tablet 10 mg PO DAILY Qty: 90 3RF atorvastatin [Lipitor] 20 mg tablet 20 mg PO DAILY Qty: 90 3RF triamcinolone acetonide 0.1 % cream 1 applic Topical BID PRN (Reason: psoriasis) Qty: 80 0RF chlorthalidone 25 mg tablet 25 mg PO DAILY gabapentin 300 mg capsule 300 mg PO PRN PRN Rx Instructions: Take 1-2 capsules by mouth Three times daily. levothyroxine 150 mcg Tablet 150 mcg PO DAILY aspirin 81 mg tablet,delayed release (DR/EC) 81 mg PO DAILY albuterol sulfate 90 mcg/actuation HFA aerosol inhaler 2 puff inhalation Q6H PRN (Reason: shortness of breath or wheezing) Qty: 8.5 0RF (DME) Aerochamber MV Spacer See Rx Instructions .Route Qty: 1 0RF Rx Instructions: As directed lidocaine HCl 2 % jelly in applicator 1 applic intra-urethral 4-6XD PRN (Reason: catheter insertion) Qty: 500 12RF potassium chloride 20 mEq tablet,ER particles/crystals 20 meq PO DAILY ferrous sulfate 325 mg (65 mg iron) tablet 325 mg PO DAILY losartan 25 mg tablet 12.5 mg PO DAILY omeprazole 40 mg capsule,delayed release(DR/EC) 40 mg PO DAILY levofloxacin 250 mg tablet 250 mg PO DAILY Qty: 10 0RF cyclobenzaprine 10 mg tablet 10 mg PO TID PRN (Reason: muscle spasm) Qty: 10 0RF Discharge Instructions Instructions: Minor Contusion ED Additional Instructions: You were seen in the emergency department for the blunt trauma to your right elbow yesterday on a metal chair. There is no fracture seen on x-ray, you have likely contusion with an element of bursitis. Please use therapeutic dosing of Tylenol (acetamenophen) & Advil (ibuprofen) in an alternating fashion as follows: Take 1000mg of Tylenol every 6 hours without missing doses- that is 4 times per day. [facility] in between the Tylenol dosings, take 400-600mg of Advil also on a 6 hour schedule, that is also 4 times per day. The daily maximum dosing of Tylenol is 4000mg, and the daily maximum dosing of Advil is 2400mg. This is safe to do for weeks. Please note that some common cold medications & prescription pain medications may contain acetamenophen and you need to read OTC drug labels and factor that in to maximum daily dosings. Please use the provided sling as needed over the next couple days, please rest, ice, compress and elevate the elbow as often over the next few days. Please follow-up with orthopedics for any prolonged pain or limit to range of motion in the long-term. Return to the emergency department for any signs of neurovascular compromise or signs of infection to the elbow like increasing redness, warmth to touch, complete inability to use the distal right arm, numbness with temperature changes distal to the injury Referrals: [facility] [Provider Group] JOE FULLER [facility] [Primary Care Provider] -
== END 2024-01-17 17:39 | disposition home or self-care (01) ==
PROVIDERS: Emergency Provider Physician Assistant; PCP Nurse Practitioner Family
DX: S50.01XA Contusion of right elbow, initial encounter (principal); W22.8XXA Striking against or struck by other objects, initial encounter
CPT/HCPCS: 00123; 99283; 73080

== ENCOUNTER 2024-02-19 16:23 | Outpatient (REF) | payer MEDICARE, OTHER, SELFPAY ==
[2024-02-19 19:02] LABS: HCT 34.1 % (40.0-50.0); HGB 11.8 g/dL (13.5-17.5); MCH 31.7 pg (27.0-33.0); MCHC 34.6 % (32.0-36.0); MCV 92 fL (80-95); MPV 8.6 fL (8.0-11.0); Platelet Count 267 10^3/uL (130-400); RBC 3.72 10^6/uL (4.36-5.78); RDW 14.1 % (11.8-14.1); RDW-SD 47.5 fL; WBC 6.46 10^3/uL (4.4-10.8)
[2024-02-19 20:18] LABS: ALT 28 U/L (16-63); AST 22 U/L (15-37); Albumin 3.4 g/dL (3.4-5.0); Alkaline Phosphatase 92 U/L (46-116); Anion Gap 9.7 mmol/L (3-11); BUN 14 mg/dL (7-18); Bilirubin, Total 0.31 mg/dL (0.2-1.0); CO2 26.3 mmol/L (21.0-32.0); Calcium 9.1 mg/dL (8.5-10.1); Chloride 99 mmol/L (98-107); Ferritin 164 ng/mL (26-388); Glucose 107 mg/dL (74-106); Potassium 4.1 mmol/L (3.5-5.1); Sodium 135 mmol/L (136-145); Total Protein 6.4 g/dL (6.4-8.2)
[2024-02-19 20:30] LABS: Iron 36 ug/dL (65-175); Total Iron Binding Capacity 266 ug/dL (250-450); Transferrin Sat 14 % (20-55)
[2024-02-20 19:43] LABS: PSA, Diagnostic 1.5 ng/mL (<=6.5)
== END 2024-02-19 16:24 | disposition home or self-care (01) ==
LOC: NCHCN 16:23
PROVIDERS: PCP Nurse Practitioner Family; Referring Provider Nurse Practitioner Family; Visit Provider Nurse Practitioner Family
DX: K51.918 Ulcerative colitis, unspecified with other complication (principal); E03.9 Hypothyroidism, unspecified; N40.0 Benign prostatic hyperplasia without lower urinary tract symptoms
CPT/HCPCS: 80053; 85027; 82728; 83540; 83550; 84153; 84443

== ENCOUNTER → 2024-02-22 13:55 | Outpatient (BNVA) | payer MEDICARE, OTHER, SELFPAY | PROVIDERS: PCP Nurse Practitioner Family; Referring Provider Nurse Practitioner Family; Visit Provider Physical Therapy Assistant | DX: Z12.11 Encounter for screening for malignant neoplasm of colon (principal); Z86.010 Personal history of colon polyps ==

== ENCOUNTER → 2024-02-26 10:13 | Outpatient (BNVA) | payer MEDICARE, OTHER, SELFPAY | PROVIDERS: PCP Nurse Practitioner Family; Visit Provider Urology | DX: R33.8 Other retention of urine (principal) | CPT/HCPCS: 99213 ==

== ENCOUNTER 2024-03-11 09:03 | Day surgery (SDC) | payer MEDICARE, OTHER, SELFPAY ==
--- NOTE | 2024-03-10 10:22 | W.PM.DSUDISC ---
Date of service: 03/11/24 Time of Service: 11:42 Discharge Plan Disposition Patient Disposition: Home Condition: Good Discharge Details Reason For Visit: EGD and colonoscopy Attending Provider: Shane Daly Primary Care Provider: JOE FULLER Home Meds and New Rx's Prescriptions: Continued amlodipine 10 mg tablet 10 mg PO DAILY Qty: 90 3RF atorvastatin [Lipitor] 20 mg tablet 20 mg PO DAILY Qty: 90 3RF triamcinolone acetonide 0.1 % cream 1 applic Topical BID PRN (Reason: psoriasis) Qty: 80 0RF chlorthalidone 25 mg tablet 25 mg PO DAILY gabapentin 300 mg capsule 300 mg PO PRN PRN Rx Instructions: Take 1-2 capsules by mouth Three times daily. levothyroxine 150 mcg Tablet 150 mcg PO DAILY aspirin 81 mg tablet,delayed release (DR/EC) 81 mg PO DAILY albuterol sulfate 90 mcg/actuation HFA aerosol inhaler 2 puff inhalation Q6H PRN (Reason: shortness of breath or wheezing) Qty: 8.5 0RF (DME) Aerochamber MV Spacer See Rx Instructions .Route Qty: 1 0RF Rx Instructions: As directed lidocaine HCl 2 % jelly in applicator 1 applic intra-urethral 4-6XD PRN (Reason: catheter insertion) Qty: 500 12RF potassium chloride 20 mEq tablet,ER particles/crystals 20 meq PO DAILY ferrous sulfate 325 mg (65 mg iron) tablet 325 mg PO DAILY losartan 25 mg tablet 12.5 mg PO DAILY omeprazole 40 mg capsule,delayed release(DR/EC) 40 mg PO DAILY tiotropium bromide [Spiriva with HandiHaler] 18 mcg capsule, w/inhalation device 1 cap inhalation DAILY Rx Instructions: puncture 1 cap using device; one dose = 2 inhalations sildenafil [Viagra] 100 mg tablet 100 mg PO DAILY PRN Rx Instructions: administer 30 minutes to 4 hours before activity cyclobenzaprine 10 mg tablet 10 mg PO TID PRN (Reason: muscle spasm) Qty: 10 0RF Discontinued bisacodyl [Dulcolax (bisacodyl)] 5 mg tablet,delayed release (DR/EC) 5 mg PO ONCE Qty: 4 0RF Rx Instructions: Take per colonoscopy instructions provided by ordering providers office polyethylene glycol 3350 17 gram/dose powder 17 g PO ONCE Qty: 238 0RF Rx Instructions: Take per colonoscopy instructions provided by ordering providers office Discharge Instructions Instructions: Peptic ulcers, Colon polyps, Diverticulosis Additional Instructions: Oswaldo, we are able to complete your endoscopies today without any difficulty. Everything went very smoothly, and I hope you are comfortable. With regards to your upper endoscopy, there is a little bit of inflammation in your duodenum consistent with mild duodenitis. This is what was detected on your previous endoscopy. Otherwise, things generally looked good. I did multiple biopsies throughout the length of your upper endoscopy to see if there is anything else that needs any treatment. Your colonoscopy also went very smoothly. Your prep was excellent and I could see everything fine. I did find and removed 2 polyps today. Both were small, none of them have any features that are worrisome to the naked eye. Similar to the biopsies mentioned above, these will be sent to the pathologist for their interpretation. Incidentally, you also have a lipoma in your colon. These are not at all dangerous, and they pose no risk to your health or wellbeing. It does not need any treatment. Once I have the results of the biopsies and the polyp report, my office will be in touch with any other recommendations. If you have any questions at all please do not hesitate to ask. 1. If tolerated, consume a soft, low fiber diet for 1-2 days. 2[address] Do not drive, drink alcohol, operate machinery, make critical decisions, or do activities that require coordination or balance for 24 hours. 3. Because air was put into your colon during the procedure, expelling air from your rectum (passing gas or farting) is normal. 4. You may not have a bowel movement for 1-3 days because of the colonoscopy prep. This is normal. 5. You may experience a sore throat for 24 to 48 hours. You may use throat lozenges or gargle with warm salt water to relieve the discomfort. 6. Because air was put into your stomach during the procedure, you may experience some belching. 7. Go directly to the emergency room if you notice any of the following: Develop chills (warm to touch), or if you have a thermometer and your temperature is above 101 Difficulty breathing or difficultly swallowing Persistent vomiting Severe abdominal pain, other than gas cramps Severe chest pain Black, tarry stools Any bleeding ? exceeding one tablespoon 8. Call your physician if the site where your intravenous was started becomes red, swollen, painful, and warm to touch. 9. Your physician has reviewed your pre-procedure medications. Please continue to take those medications as previously ordered. You will be given specific information/education regarding any changes to your medications before leaving. Stand Alone Forms: Anesthesia Discharge InstBradford Murphy (DSU) Activity:: Activity as Tolerated Diet:: As Tolerated Discharge Orders Discharge Orders: Discharge Order (Routine); Ordered 03/10/24 Ordered By: Shane Daly DS: Diagnosis Discharge Diagnosis (1) Encounter for screening colonoscopy: Status: Acute Asessment and Plan: Follow-up on biopsy and polypectomy results
--- NOTE | 2024-03-10 10:25 | W.PM.ENDDOP ---
Date of service: 03/11/24 Time of Service: 11:45 Endoscopy Report DATE OF PROCEDURE: 03/11/24 PRE-OP DIAGNOSIS: screening EGD and colonoscopy POST-OP DIAGNOSIS: other (Mild duodenitis; colon lipoma, colon polyps) PROCEDURE: EGD and colonoscopy SURGEON: Shane Daly ANESTHESIA TYPE: General:No Airway ESTIMATED BLOOD LOSS: 10 PATHOLOGY: other (Random biopsies of duodenum, gastric antrum and body, and GE junction; 0.25 cm polyp at 75 cm, 0.25 cm polyp at 20 cm) COMPLICATIONS: None DISPOSITION: same day INDICATIONS: Oswaldo is a 78 year old man with a history of peptic duodenitis and gastritis refractory to PPI therapy. He also has a history of adenomatous polyps. He needs his next screening EGD and colonoscopy PREP: Miralax/Dulcolax PROCEDURE START TIME: 10:57 PROCEDURE END TIME: 11:29 COLONOSCOPY RETRACTION TIME: 15 FINDINGS: Mild duodenitis, normal-appearing GE junction and Z-line at 38 cm; 0.25 cm polyp at 75 cm, 0.25 cm polyp at 20 cm, ascending colon lipoma PROCEDURE DESCRIPTION: After the initiation of anesthesia, and with the assistance of a bite block, I advanced a standard gastroscope through the mouth past the hypopharynx and into the esophagus.? Under the direct vision of the scope, I advanced down the esophagus towards the stomach.? The upper, mid, and lower esophagus were all normal and healthy appearing. There was regular Z-line at the GE junction measuring 38 cm from the incisors. I advanced down into the stomach and insufflated into the rugae were obliterated. I performed retroflexion. I saw no evidence of any hiatal herniation. I turned the camera back around towards the incisura angularis and antrum. Mucosa was just mildly thickened, but there was no evidence of any active inflammation. I advanced down through the pylorus into the duodenum. There was mild duodenitis within the duodenal bulb. The first second third portions of the duodenum were otherwise normal-appearing. I did some random biopsies in the duodenal bulb, and then brought the camera back up into the stomach. I perform random biopsies of the gastric antrum and body to rule out Helicobacter pylori. Next, I brought the camera back up to the GE junction. Narrowband imaging was used to assist with analysis here. I did perform some biopsies of the GE junction as well. All biopsies were done with cold forceps, there was minimal bleeding from any of the sites. The camera was then removed along the length of the esophagus 1 last time. No other abnormalities were appreciated. We then moved Oswaldo into the left lateral decubitus position, taking great care to pad and support him appropriately. I began by performing an external anorectal exam.? Perineum and skin were normal, as was the anal verge.? There are some perianal skin tags consistent with old hemorrhoids.? Next, I performed a digital rectal exam.? I did not appreciate any abnormal findings.? Next, I advanced a colonoscope into the rectal vault.? I performed retroflexion.? This appeared normal.? Using insufflation, I then advanced the colonoscope beyond the rectal folds and into the sigmoid colon before advancing towards the cecum.? The scope was noted to be in the cecum by identification of the ileocecal valve and appendiceal orifice.? I then began withdrawing the colonoscope using repeated irrigation as necessary for full evaluation of the colonic mucosa. There is a benign-appearing lipoma in the ascending colon. Around 75 cm from the anal verge I identified a 0.25 cm polyp. ?It appeared flat in character. ?I was able to remove this with a cold forcep polypectomy. ?I examined the site, and there was minimal bleeding. ?Once this was completed, I continued to withdraw the scope and examine the remainder of the colonic mucosa.? Similarly, I found another polyp at 20 cm from the anal verge. This was also less than 0.25 cm. This was also flat and removed without issue using cold forceps. There were some occasional diverticula along the length of the colon as well. Once the scope was withdrawn to the level of the rectum, great care was taken to examine portions of the rectal folds.? Finally, the scope was withdrawn and the patient was brought to the same-day surgery recovery unit as the anesthetic wore off. ?The findings and instructions were shared with the patient prior to discharge. [place] bowel prep score from right to left was 3, 3, 3
[2024-03-11 09:17] VITALS: BP 147/75; PULSE 89; RESP 16; TEMP 36.6; O2SAT 100
[2024-03-11] MEDS: Lactated Ringers 1,000 ML 80 ML IV (09:50)
--- NOTE | 2024-03-11 10:11 | W.ANESPRE ---
General Info Date of Service Date Performed: 03/11/24 Height: 5 ft 9 in Weight: 66.4 kg Body Mass Index (BMI): 21.6 Surgical Procedure: Operation Date: 03/11/24 10:35 Proposed Procedure Side Surgeon p Colonoscopy/Gastroscopy Shane Daly MD Meds Allergies and Home Medications Allergies Allergy/AdvReac Type Severity Reaction Status Date / Time Sulfa (Sulfonamide Allergy Intermediate HIGH FEVER Verified 03/11/24 09:22 Antibiotics) lisinopril AdvReac Mild COUGH Verified 03/11/24 09:22 prednisone AdvReac Unknown DELIRIUM Verified 03/11/24 09:22 Home Medication ?Medication ?Instructions ?Recorded amlodipine 10 mg tablet 10 mg PO DAILY #90 tab-caps 08/27/19 atorvastatin 20 mg tablet (Lipitor) 20 mg PO DAILY #90 tabs 08/27/19 triamcinolone acetonide 0.1 % 1 applic topical BID PRN psoriasis 08/27/19 topical cream #80 grams ferrous sulfate 325 mg (65 mg 325 mg PO DAILY 04/28/21 iron) tablet losartan 25 mg tablet 12.5 mg PO DAILY 04/28/21 potassium chloride 20 mEq 20 meq PO DAILY 04/28/21 tablet,extended release(part/cryst) omeprazole 40 mg capsule,delayed 40 mg PO DAILY 07/22/21 release chlorthalidone 25 mg tablet 25 mg PO DAILY 08/10/21 gabapentin 300 mg capsule 300 mg PO PRN PRN 08/10/21 levothyroxine 150 mcg tablet 150 mcg PO DAILY 08/10/21 cyclobenzaprine 10 mg tablet 10 mg PO TID PRN muscle spasm #10 11/23/22 tabs albuterol sulfate 90 mcg/actuation 2 puff inhalation Q6H PRN 07/12/23 aerosol inhaler shortness of breath or wheezing #8.5 grams aspirin 81 mg tablet,delayed 81 mg PO DAILY 07/12/23 release inhalational spacing device #1 ea 07/12/23 (Aerochamber MV spacer) lidocaine HCl 2 % mucosal jelly in 1 applic intra-urethral 4-6XD PRN 08/04/23 applicator catheter insertion #500 mL sildenafil 100 mg tablet (Viagra) 100 mg PO DAILY PRN 02/13/24 tiotropium bromide 18 mcg capsule 1 cap inhalation DAILY 02/13/24 with inhalation device (Spiriva with HandiHaler) Current Visit Medications: Current Medications Generic Name Dose Route Start Last Admin Trade Name Freq PRN Reason Stop Dose Admin Ringer's Solution 1,000 mls @ 80 mls/hr 03/11/24 06:00 03/11/24 09:50 IV 04/07/24 23:59 80 mls/hr INFUSION LIZ Administration IV Miscellaneous Supplies 1 each 03/11/24 06:00 Iv Access IV 04/07/24 23:59 DIRECTED LIZ Ondansetron HCl 4 mg 03/10/24 10:27 Ondansetron 4 Mg/2 Ml Vial IVP 04/09/24 10:26 Q4H PRN PRN Nausea / Vomiting Sodium Chloride 0 ml 03/11/24 06:00 Normal Saline Flush 10 Ml Syr IV 04/07/24 23:59 PRN PRN Sodium Chloride 0 ml 03/11/24 06:00 Normal Saline 10 Ml Vial IJ 04/07/24 23:59 DIRECTED PRN Sterile Water 0 ml 03/11/24 06:00 Water,Injection,Sterile 10 Ml Vial IJ 04/07/24 23:59 DIRECTED PRN PFSH Active Problems Active Problems: Problem Status Onset Code Encounter for screening colonoscopy Acute Z12.11 Hypothyroidism Chronic E03.9 Alcohol abuse Chronic F10.10 Chondrocalcinosis of right knee Acute M11.261 Arthritis of right knee Acute M17.11 Lumbar radiculopathy Acute M54.16 Urinary retention with incomplete bladder emptying Acute R33.9 Esophagitis Acute K20.90 Gastritis Acute K29.70 Duodenitis Acute K29.80 Sessile colonic polyp Acute K63.5 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 Anemia Chronic D64.9 Muscle spasm Acute M62.838 Pain of right thigh Acute M79.651 Medical History Medical History Self-catheterizes urinary bladder Coronary artery disease (05/14/14) Leg cramps Lumbar radiculopathy Persistent insomnia Dizziness occasional Dilatation of kidney collecting system Anemia Pulmonary infiltrates Cigarette smoker History of adenomatous polyp of colon Ankle pain, left Hypokalemia Nocturnal leg cramps Erectile dysfunction Sciatica Edentulous Prediabetes Alcohol consumption heavy Fibula fracture Gout Lateral epicondylitis Urinary disorder Surgical History Surgical History History of esophagogastroduodenoscopy (EGD) (~06/01/21) History of colonoscopy with polypectomy (~06/01/21) Stent placement (~2010) LAD x 3- Last saw cardiology 2016. F/U with PCP Colonoscopy - MAC (11/14/17) Tobacco Smoking/Tobacco Use Status: Current every day Tobacco Type: cigarettes Smoking cigarettes per day: 10 Years smoked: 50 Passive smoking exposure: Yes Alcohol Alcohol Intake: current Alcohol intake frequency: 3 or more drinks per day Alcohol type: beer Substance Use Substance use: Never Substance use type: does not use Details: alcohol t-1 x2 beers. Vital Signs and Lab Results Vital Signs Most Recent Vital Signs in EMR: Most Recent Vital Signs Temp Pulse Resp BP Pulse Ox 36.6 C 89 16 147/75 H 100 03/11/24 09:17 03/11/24 09:17 03/11/24 09:17 03/11/24 09:17 03/11/24 09:17 Lab Results Blood Type / Crossmatch: No Data to Display Complete Blood Count: White Blood Count 6.46 10^3/uL (4.4-10.8) 02/19/24 16:00 Red Blood Count 3.72 10^6/uL (4.36-5.78) L 02/19/24 16:00 Hemoglobin 11.8 g/dL (13.5-17.5) L 02/19/24 16:00 Hematocrit 34.1 % (40.0-50.0) L 02/19/24 16:00 Platelet Count 267 10^3/uL (130-400) 02/19/24 16:00 Complete Metabolic Panel: Sodium 135 mmol/L (136-145) L 02/19/24 16:00 Potassium 4.1 mmol/L (3.5-5.1) 02/19/24 16:00 Chloride 99 mmol/L (98-107) 02/19/24 16:00 Carbon Dioxide 26.3 mmol/L (21.0-32.0) 02/19/24 16:00 BUN 14 mg/dL (7-18) 02/19/24 16:00 Creatinine 1.0 mg/dL (0.70-1.30) 02/19/24 16:00 Est GFR (CKD-EPI 2020) 78.00 (mL/min/1.73m2) 02/19/24 16:00 Calcium 9.1 mg/dL (8.5-10.1) 02/19/24 16:00 Albumin 3.4 g/dL (3.4-5.0) 02/19/24 16:00 Glucose 107 mg/dL (74-106) H 02/19/24 16:00 Liver Function Panel: Alanine Aminotransferase (ALT/SGPT) 28 U/L (16-63) 02/19/24 16:00 Aspartate Amino Transf (AST/SGOT) 22 U/L (15-37) 02/19/24 16:00 Coagulation Panel: No Data to Display Cardiac Panel: No Data to Display Arterial Blood Gas: No Data to Display Venous Blood Gas: No Data to Display Pancreas Panel: No Data to Display Thyroid Panel: Thyroid Stimulating Hormone (TSH) 1.70 uIU/mL (0.36-3.74) 02/19/24 16:00 Infectious Disease: No Data to Display Blood Cultures: No Data to Display Toxicology Panel: No Data to Display Imaging and Studies Imaging and Studies Study information below may be from another EMR and interpreted by another provider. Please see original notes in EMR for more complete details. EKG Summary: Reviewed Echocardiogram Summary: Reviewed Anesthesia Assessment and Plan Anesthesia History Personal History: No History of Anesthesia Complications Family History: No Family History of Anesthesia Complications Exercise Tolerance Exercise Tolerance: Metabolic Equivalents>4 Pertinent Negatives Pertinent Negatives: No Major Pulmonary Symptoms or Complaints and No History of CVA/TIA Cardiac & Pulmonary Exam Cardiac Exam: Normal S1/S2 Heart Sounds Pulmonary Exam: Clear Bilateral Breath Sounds Implantable Cardiac Device Does patient have a Pacemaker or an ICD?: No Airway Exam Known Difficult Airway: No Mallampati Class: 1 Mouth Opening: Normal (> 3cm) Thyromental Distance: Greater than 3 cm Neck Range of Motion: Full ROM Neck Circumference: Normal Teeth Condition: Removable Dentures/Plates Upper and Removable Dentures/Plates Lower ASA Classification ASA Score: ASA 3 Emergency Case?: No NPO Status NPO Status: NPO Clears >2 hours, Solids >8 hours Anesthesia Plan Resuscitation Status: Full Code Anesthesia Technique: General Anesthesia Airway Planned: Natural Airway Monitors Used: Standard Monitors
[2024-03-11 10:49] VITALS: BMI 21.6
--- NOTE | 2024-03-11 11:00 | STOM_PTH ---
PATIENT: Oswaldo Singh LOC: [facility] U#:[id number] AGE/SX: 78/M ROOM: RE03/11/[address]: Shane Daly MD : 1945 BED: DIS: 03/11/2024 SPEC #: [id number] RECD: 03/11/24 12:54 STATUS: [place] RE #: [id number] CARMITA: 03/11/24 11:[address]: Shane Daly DEPT: Surgical Specimen RECD BY: Julia Perez ENTERED: 03/11/24 12:57 SP TYPE: STOMACH OTHR DR: JOE FULLER, CODER OPERATOR Tissues: 1 - BIOPSY BOWEL 2 - STOMACH BIOPSY 3 - STOMACH BIOPSY 4 - ESOPHAGUS BIOPSY 5 - BIOPSY BOWEL 6 - BIOPSY BOWEL Procedures: GROSS AND MICRO LEVEL 4 Comments: [id number]
[2024-03-11 11:34] VITALS: BP 105/65; PULSE 80; RESP 16; TEMP 36.4; O2SAT 98
--- NOTE | 2024-03-11 11:53 | W.ANESPOSTOP ---
Postoperative Evaluation Date, Time and Location Date Performed: 03/11/24 Time Performed: 11:53 Patient Location: Day Surgery Unit Vital Signs Most Recent Imported Vital Signs: Most Recent Vital Signs Temp Pulse Resp BP Pulse Ox 36.4 C L 80 16 105/65 98 03/11/24 11:34 03/11/24 11:34 03/11/24 11:34 03/11/24 11:34 03/11/24 11:34 Pain Score Most Recent Pain Score: Most Recent Pain Score Pain Level 0 03/11/24 11:34 Assessment Mental Status: Awake (Alert & Oriented to Patient Baseline) Airway and Respiratory Function: Patent airway with normal (patient baseline) respiratory exam Cardiovascular Function: Hemodynamically Stable Hydration Status: Adequately Hydrated Nausea & Vomiting: No Nausea or Vomiting Pain: Pt. Denies Any Pain Peripheral Nerve Block: Patient did not receive a nerve block
[2024-03-11 12:10] VITALS: BP 155/74; PULSE 82; RESP 18; TEMP 36.2; O2SAT 99
== END 2024-03-11 12:15 | disposition home or self-care (01) ==
LOC: SUR 09:03
PROVIDERS: PCP Nurse Practitioner Family; Visit Provider Surgery
PROC: (CPT 45380; principal; 2024-03-11 10:30)
DX: Z12.11 Encounter for screening for malignant neoplasm of colon (principal); K29.80 Duodenitis without bleeding; K63.5 Polyp of colon; K57.30 Diverticulosis of large intestine without perforation or abscess without bleeding
CPT/HCPCS: 45380; 43239; 88305; J2001; J2704

== ENCOUNTER 2024-03-13 13:05 | Outpatient (CLI) | payer MEDICARE, OTHER, SELFPAY ==
--- NOTE | 2024-03-13 12:52 | DI.RAD_ITS ---
Exam(s) XR ANKLE RT COMPLETE EXAM: XR ANKLE RT COMPLETE CLINICAL HISTORY: ARTHALGIA, RT ANKLE, M25.579; LATERAL ANKLE PAIN S/P SLIP/TRIP ON 03/12/24. TECHNIQUE: 2D digital imaging was performed. Three views. COMPARISON: No exams were available for comparison FINDINGS: BONES: No acute fracture is present. Old mild fracture deformity of the distal fibula. Some calcifi cation across the interosseous ligament with spurring. No bony destructive lesion is seen. JOINTS: The ankle mortise is normally aligned. Ankle joint space is maintained. SOFT TISSUE: Vascular calcifications. IMPRESSION: No acute abnormality. DATA REPOSITORY: RADIATION DOSE DELIVERED:
== END 2024-03-13 13:25 ==
PROVIDERS: PCP Nurse Practitioner Family; Visit Provider Nurse Practitioner Family
DX: M25.571 Pain in right ankle and joints of right foot (principal)
CPT/HCPCS: 73610

== ENCOUNTER 2024-03-13 18:05 | Outpatient (REF) | payer MEDICARE, OTHER, SELFPAY ==
[2024-03-13 19:16] LABS: Abs Immature Grans 0.03 10^3/uL (0.0-0.06); Absolute Basophil Count 0.03 10^3/uL (0.0-0.2); Absolute Eosinophil Count 0.13 10^3/uL (0.0-0.7); Absolute Lymphocyte Count 1.07 10^3/uL (1.2-3.4); Absolute Monocyte Count 0.93 10^3/uL (0.1-0.8); Absolute Neutrophil Count 6.98 10^3/uL (1.2-6.7); Basophils % 0.3 %; Eosinophils % 1.4 %; HCT 33.8 % (40.0-50.0); Immature Grans % 0.3 %; Lymphocytes % 11.7 %; MCHC 35.5 % (32.0-36.0); MCV 90 fL (80-95); MPV 8.4 fL (8.0-11.0); Monocytes % 10.1 %; Neutrophils % 76.2 %; Platelet Count 247 10^3/uL (130-400); RBC 3.75 10^6/uL (4.36-5.78); RDW 13.5 % (11.8-14.1); RDW-SD 44.3 fL; WBC 9.17 10^3/uL (4.4-10.8)
[2024-03-13 19:17] LABS: Anion Gap 9.5 mmol/L (3-11); BUN 11 mg/dL (7-18); CO2 25.5 mmol/L (21.0-32.0); CREATININE 0.9 mg/dL (0.70-1.30); Calcium 9.1 mg/dL (8.5-10.1); Chloride 95 mmol/L (98-107); Estimated GFR 88.51 (mL/min/1.73m2); Glucose 85 mg/dL (74-106); Potassium 3.7 mmol/L (3.5-5.1); Sodium 130 mmol/L (136-145); Uric Acid 6.4 mg/dL (3.5-7.2)
== END 2024-03-13 18:06 | disposition home or self-care (01) ==
LOC: NCHCN 18:05
PROVIDERS: PCP Nurse Practitioner Family; Visit Provider Nurse Practitioner Family
DX: I10 Essential (primary) hypertension (principal); D50.9 Iron deficiency anemia, unspecified; E03.9 Hypothyroidism, unspecified; R73.09 Other abnormal glucose; Z87.39 Personal history of other diseases of the musculoskeletal system and connective tissue
CPT/HCPCS: 80048; 84550; 85025

== ENCOUNTER → 2024-08-30 10:20 | Outpatient (BNVA) | payer MEDICARE, OTHER, SELFPAY | PROVIDERS: PCP Nurse Practitioner Family; Referring Provider Nurse Practitioner Family; Visit Provider Urology | DX: R33.8 Other retention of urine (principal) | CPT/HCPCS: 99213 ==

== ENCOUNTER 2024-09-06 12:23 | Emergency (ER) | payer MEDICARE, OTHER, SELFPAY ==
--- NOTE | 2024-09-06 12:30 | RT.EKG_ITS ---
APPROVED REPORT Exam: Resting ECG Reason for Exam: weak, back pain Patient Location: E HR:94 bpm ECG Measurements Heart Rate 94 AXIS CO 146 P 64 QRSd 90 QRS -4 QT 342 T 76 QTc 428 Conclusion Sinus rhythm...normal P axis, V-rate 60- 99 I have reviewed and interpreted ECG and agree with software generated interpretation.
[2024-09-06 12:39] VITALS: BP 112/67; PULSE 91; RESP 24; TEMP 37.1; O2SAT 88
[2024-09-06 12:40] VITALS: BP 112/67; PULSE 91; RESP 24; TEMP 37.1; O2SAT 88
--- NOTE | 2024-09-06 13:04 | ED.GENADUL_ITS ---
Discharge Plan Disposition Patient Disposition: Home Condition: Good Discharge Details Clinical Impression: Pneumonia Primary Care Provider: JOE FULLER ED Provider: Yung Bloom Home Meds and New Rx's Prescriptions: New levofloxacin 750 mg tablet 750 mg PO DAILY Qty: 6 0RF benzonatate 100 mg capsule 100 mg PO TID Qty: 30 0RF No Action amlodipine 10 mg tablet 10 mg PO DAILY Qty: 90 3RF atorvastatin [Lipitor] 20 mg tablet 20 mg PO DAILY Qty: 90 3RF triamcinolone acetonide 0.1 % cream 1 applic Topical BID PRN (Reason: psoriasis) Qty: 80 0RF chlorthalidone 25 mg tablet 25 mg PO DAILY gabapentin 300 mg capsule 300 mg PO PRN PRN Rx Instructions: Take 1-2 capsules by mouth Three times daily. levothyroxine 150 mcg Tablet 150 mcg PO DAILY aspirin 81 mg tablet,delayed release (DR/EC) 81 mg PO DAILY albuterol sulfate 90 mcg/actuation HFA aerosol inhaler 2 puff inhalation Q6H PRN (Reason: shortness of breath or wheezing) Qty: 8.5 0RF (DME) Aerochamber MV Spacer See Rx Instructions .Route Qty: 1 0RF Rx Instructions: As directed lidocaine HCl 2 % jelly in applicator 1 applic intra-urethral 4-6XD PRN (Reason: catheter insertion) Qty: 500 12RF potassium chloride 20 mEq tablet,ER particles/crystals 20 meq PO DAILY ferrous sulfate 325 mg (65 mg iron) tablet 325 mg PO DAILY losartan 25 mg tablet 12.5 mg PO DAILY omeprazole 40 mg capsule,delayed release(DR/EC) 40 mg PO DAILY tiotropium bromide [Spiriva with HandiHaler] 18 mcg capsule, w/inhalation device 1 cap inhalation DAILY Rx Instructions: puncture 1 cap using device; one dose = 2 inhalations sildenafil [Viagra] 100 mg tablet 100 mg PO DAILY PRN Rx Instructions: administer 30 minutes to 4 hours before activity cyclobenzaprine 10 mg tablet 10 mg PO TID PRN (Reason: muscle spasm) Qty: 10 0RF Discharge Instructions Instructions: Community-Acquired Pneumonia, Adult (DC) Additional Instructions: At this time your ultrasound shows notable evidence of pneumonia. Please take the antibiotic as prescribed. Please be cautious, while on this antibiotic it can cause irritation or potential damage to your tendons. If you do notice any pain or tenderness in your ligaments or tendons please stop taking the antibiotic immediately and follow-up closely with your primary care provider. Please take the inhaler, 2 puffs every 12 hours for the next 1 to 2 weeks while on the antibiotic. Please take the Tessalon Perles as needed for cough. If you notice any worsening of your symptoms, or any new symptoms such as vomiting, diarrhea, fever, chills, shortness of breath, chest pain, numbness, weakness, or fainting , please return immediately to the emergency department for reevaluation. Please follow up with your primary care provider as soon as possible for reassessment and reevaluation. As always, it was a pleasure participating in your medical care today. Referrals: JOE FULLER NP [Primary Care Provider] - Discharge Data Discharge Date/Time-TO BE ENTERED AT DEPARTURE: 09/06/24 13:43 HPI General Date/Time Provider Initiated Documentation: 09/06/24 12:30 . HPI Narrative: 78-year-old male with a past medical history of chronic urinary self-cathet erization, COPD, coronary artery disease with stents x 2, chronic tobacco use, presents today for cough. Patient states that for the last 3 to 4 days he has had a cough, with productive sputum minimally. He was seen at urgent care few days ago, and tested negative for flu and COVID. He has been using his albuterol but with no significant improvement. He has been having chills but denies fever. He denies any chest pain, hemoptysis, or other complaints. Related Data Home Medications ?Medication ?Instructions ?Recorded ?Confirmed amlodipine 10 mg tablet 10 mg PO DAILY #90 tab-caps 08/27/19 09/06/24 atorvastatin 20 mg tablet (Lipitor) 20 mg PO DAILY #90 tabs 08/27/19 09/06/24 triamcinolone acetonide 0.1 % 1 applic topical BID PRN psoriasis 08/27/19 09/06/24 topical cream #80 grams ferrous sulfate 325 mg (65 mg 325 mg PO DAILY 04/28/21 09/06/24 iron) tablet losartan 25 mg tablet 12.5 mg PO DAILY 04/28/21 09/06/24 potassium chloride 20 mEq 20 meq PO DAILY 04/28/21 09/06/24 tablet,extended release(part/cryst) omeprazole 40 mg capsule,delayed 40 mg PO DAILY 07/22/21 09/06/24 release chlorthalidone 25 mg tablet 25 mg PO DAILY 08/10/21 09/06/24 gabapentin 300 mg capsule 300 mg PO PRN PRN 08/10/21 09/06/24 levothyroxine 150 mcg tablet 150 mcg PO DAILY 08/10/21 09/06/24 cyclobenzaprine 10 mg tablet 10 mg PO TID PRN muscle spasm #10 11/23/22 09/06/24 tabs albuterol sulfate 90 mcg/actuation 2 puff inhalation Q6H PRN 07/12/23 09/06/24 aerosol inhaler shortness of breath or wheezing #8.5 grams aspirin 81 mg tablet,delayed 81 mg PO DAILY 07/12/23 09/06/24 release inhalational spacing device #1 ea 07/12/23 09/06/24 (Aerochamber MV spacer) lidocaine HCl 2 % mucosal jelly in 1 applic intra-urethral 4-6XD PRN 08/04/23 09/06/24 applicator catheter insertion #500 mL sildenafil 100 mg tablet (Viagra) 100 mg PO DAILY PRN 02/13/24 09/06/24 tiotropium bromide 18 mcg capsule 1 cap inhalation DAILY 02/13/24 09/06/24 with inhalation device (Spiriva with HandiHaler) benzonatate 100 mg capsule 100 mg PO TID #30 caps 09/06/24 09/06/24 levofloxacin 750 mg tablet 750 mg PO DAILY #6 tabs 09/06/24 09/06/24 Previous Rx's ?Medication ?Instructions ?Recorded amlodipine 10 mg tablet 10 mg PO DAILY #90 tab-caps 08/27/19 atorvastatin 20 mg tablet (Lipitor) 20 mg PO DAILY #90 tabs 08/27/19 triamcinolone acetonide 0.1 % 1 applic topical BID PRN psoriasis 08/27/19 topical cream #80 grams cyclobenzaprine 10 mg tablet 10 mg PO TID PRN muscle spasm #10 11/23/22 tabs albuterol sulfate 90 mcg/actuation 2 puff inhalation Q6H PRN 07/12/23 aerosol inhaler shortness of breath or wheezing #8.5 grams inhalational spacing device #1 ea 07/12/23 (Aerochamber MV spacer) lidocaine HCl 2 % mucosal jelly in 1 applic intra-urethral 4-6XD PRN 08/04/23 applicator catheter insertion #500 mL benzonatate 100 mg capsule 100 mg PO TID #30 caps 09/06/24 levofloxacin 750 mg tablet 750 mg PO DAILY #6 tabs 09/06/24 Allergies Allergy/AdvReac Type Severity Reaction Status Date / Time Sulfa (Sulfonamide Allergy Intermediate HIGH FEVER Verified 09/06/24 17:36 Antibiotics) lisinopril AdvReac Mild COUGH Verified 09/06/24 17:36 prednisone AdvReac Unknown DELIRIUM Verified 09/06/24 17:36 General Stated Complaint: RespSymp SHARON: 3 Exam Narrative Exam Narrative: 1.Const: Well-nourished, Well-developed, appearing stated age 2.Eyes: PERRL, no conjunctival injection, and symmetrical lids. 3.ENT: Atraumatic external nose and ears. Moist MM. Neck: Symmetric, trachea midline, No thyromegaly. 4.CVS: +S1/S2, Peripheral pulses 2+ and equal in all extremities. Brisk capillary refill in all extremities. 5.RESP: Rhonchorous breath sounds, worse in the right lower lung ortiz. 6.GI: Soft, Nontender/Nondistended, No hepatosplenomegaly. No guarding or rebound. 7.MSK: Normocephalic/Atraumatic, Extremities w/o deformity or ttp No cyanosis or clubbing, Normal movement of all extremities 8.Skin: Warm, Dry. No rashes or lesions. 9.Neuro: green plumber II-XII grossly intact. Sensation grossly intact, no focal neurologic deficits. 10.Psych: (AAO) x3. Appropriate mood and affect Course Vital Signs Vital signs: Vital Signs Temperature 37.1 C 09/06/24 12:39 Pulse 91 H 09/06/24 12:39 Respiratory Rate 24 09/06/24 12:39 Blood Pressure 112/67 09/06/24 12:39 Pulse Oximetry 88 L 09/06/24 12:39 Temperature 37.1 C 09/06/24 12:39 Temperature Source Temporal Artery Scan 09/06/24 12:39 Pulse 91 H 09/06/24 12:39 Respiratory Rate 24 09/06/24 12:39 Blood Pressure 112/67 09/06/24 12:39 Blood Pressure Position Sitting 09/06/24 12:39 Pulse Oximetry 88 L 09/06/24 12:39 Oxygen Delivery Method Room Air 09/06/24 12:39 Oxygen Flow Rate 0 09/06/24 12:39 Pain Level 6 09/06/24 12:39 Medical Decision Making 78-year-old male with a past medical history of chronic urinary self- catheterization, COPD, coronary artery disease with stents x 2, chronic tobacco use, presents today for cough. Patient states that for the last 3 to 4 days he has had a cough, with productive sputum minimally. He was seen at urgent care few days ago, and tested negative for flu and COVID. He has been using his albuterol but with no significant improvement. He has been having chills but denies fever. He denies any chest pain, hemoptysis, or other complaints. Exam demonstrates rhonchorous breath sounds in the right lower lung ortiz, bedside ultrasound was performed demonstrates notable pneumonia particularly in the right lower lung field. Initially his oxygen was around 88 to 90%, however on reassessment his oxygen is 96%. Patient feels stable and would like to go home. Because of his medical comorbidities, I do feel that he would benefit from Levaquin rather than just doxycycline or Augmentin. Dose was given here. Will get be given a Symbicort inhaler for home use. Had a long discussion with him about the importance of close monitoring of his symptoms, and that if he does worsen he can return for reassessment and potential admission. Recommend continued oxygen monitoring at home. With no evidence of persistent hypoxemia at this time, I do feel that home is reasonable, considering patient's comfort with this as well. However we did discuss red flags for which to return, and which may necessitate admission. Patient understands. I have extensively reviewed the treatment plan and discharge instructions with the patient and their family. I have addressed all patient concerns at this time. The patient and family was made aware of what symptoms to monitor for that would warrant a return to the emergency department. Discussed the plan with the patient and family, they demonstrate verbal understanding and agreement with our assessment and plan at this time. The documentation in this chart was dictated using [employer] dictation software. Please excuse any dictation errors. Quality:SDOH Health Related Social Needs: No Data to Display PFSH All Active Problems (Updated 09/06/24 @ 22:11 by Jose L Montez) Syncope and collapse (Acute) Hyponatremia (Chronic) Influenza A (Acute) Acute hyponatremia (Chronic) Hypoxic respiratory failure (Acute) Community acquired pneumonia (Acute) Pneumonia (Acute) Viral respiratory illness (Acute) Encounter for screening colonoscopy (Acute) Hypothyroidism (Chronic) Alcohol abuse (Chronic) Chondrocalcinosis of right knee (Acute) Arthritis of right knee (Acute) Lumbar radiculopathy (Acute) Urinary retention with incomplete bladder emptying (Acute) Esophagitis (Acute) Gastritis (Acute) Duodenitis (Acute) Sessile colonic polyp (Acute) Tubulovillous adenoma (Acute) Anemia (Chronic) Muscle spasm (Acute) Pain of right thigh (Acute) Coronary artery disease (Chronic) Medical History (Updated 09/06/24 @ 22:11 by Jose L Montez) Hyperplastic colon polyp Self-catheterizes urinary bladder Coronary artery disease (05/14/14) Leg cramps Lumbar radiculopathy Persistent insomnia Dizziness occasional Dilatation of kidney collecting system Anemia Pulmonary infiltrates Cigarette smoker History of adenomatous polyp of colon Ankle pain, left Hypokalemia Nocturnal leg cramps Erectile dysfunction Sciatica Edentulous Prediabetes Alcohol consumption heavy Fibula fracture Gout Lateral epicondylitis Urinary disorder Surgical History History of esophagogastroduodenoscopy (EGD) (~03/2024) History of colonoscopy with polypectomy (~06/01/21) Stent placement (~2010) LAD x 3- Last saw cardiology 2016. F/U with PCP Colonoscopy - MAC (11/14/17) Family History Mother , age 83 Essential hypertension Heart disease Father , age 75 Heart disease Sister No problems noted. Brother , age 68 Heart disease Alcohol abuse Maternal Grandfather No problems noted. Maternal Grandmother No problems noted. Sister No problems noted. Sister No problems noted. Son No problems noted. Son No problems noted. Daughter No problems noted. Daughter No problems noted. Social History Smoking/Tobacco Use Status: Current every day Tobacco Type: cigarettes Years smoked: 50 Quit status: has quit before Smoking risk assessment performed?: Yes Alcohol Intake: current Alcohol Intake frequency: 3 or more drinks per day Alcohol type: beer Drug use: Never Substance use type: does not use Details: alcohol t-1 x2 beers. Caregiver/Support person: No Household members: spouse Housing: house Communication Needs: None Do you need help understanding health information?: Rarely Pets and animals: Yes Pets and animals: dog(s) Sexually active: No Do you think of yourself as: straight/heterosexual Current gender identity: male What is your relationship status?: How often do you talk on the phone with friends or family?: three or more times per week How often do you get together with friends or relatives?: decline to answer How often do you attend druze or shinto services?: decline to answer Do you belong to any clubs or organized social groups?: no Panel score (0-1 are the most socially isolated patients): 2 What type of physical activity do you participate in: none Jennifer/Yarsani: Gnosticist Special jennifer needs: No Seatbelt use: sometimes Drive intox or ride w/intox frontload driver: No Do you feel safe at home: Yes Do you feel safe in your relationship?: Yes Additional Social history: [employer]
[2024-09-06 13:24] LABS: COVID-19 PCR Negative (Negative); Influenza A PCR Positive (Negative); Influenza B PCR Negative (Negative); RSV PCR Negative (Negative)
[2024-09-06] MEDS: Budesonide/Formoterol 160/4.5 6 GM 60 PUFF INH IH (13:33)
[2024-09-06] MEDS: levoFLOXacin 500 MG, levoFLOXacin 250 MG 750 MG PO (13:34)
[2024-09-06 13:42] VITALS: BP 139/69; PULSE 86; RESP 18; TEMP 37.2; O2SAT 96
== END 2024-09-06 13:43 | disposition home or self-care (01) ==
PROVIDERS: Emergency Provider Student in an Organized Health Care Education/Training Program; PCP Nurse Practitioner Family
DX: J18.9 Pneumonia, unspecified organism (principal); J44.9 Chronic obstructive pulmonary disease, unspecified; I25.10 Atherosclerotic heart disease of native coronary artery without angina pectoris; F17.210 Nicotine dependence, cigarettes, uncomplicated; Z95.5 Presence of coronary angioplasty implant and graft; Z79.82 Long term (current) use of aspirin
CPT/HCPCS: 76604; 87637; 93005; 99284; 93010

== ENCOUNTER 2024-09-06 17:27 | Inpatient (IN) | payer MEDICARE, OTHER, SELFPAY ==
[2024-09-06] VITALS (29 sets, daily range): BP systolic 110–151; BP diastolic 59–80; PULSE 77–94; RESP 14–26; TEMP 36.9–37.5; O2SAT 90–96
--- NOTE | 2024-09-06 17:30 | RT.EKG_ITS ---
APPROVED REPORT Exam: Resting ECG Reason for Exam: syncopal Patient Location: E HR:88 bpm ECG Measurements Heart Rate 88 AXIS AL 156 P 64 QRSd 96 QRS 43 QT 365 T 51 QTc 441 Conclusion Sinus rhythm...normal P axis, V-rate 60- 99 Physician: No Stemi
--- NOTE | 2024-09-06 17:45 | DI.RAD_ITS ---
Exam(s) XR PORTABLE CHEST AP EXAM: XR PORTABLE CHEST AP CLINICAL HISTORY: sob, syncope TECHNIQUE: 2D digital imaging was performed. COMPARISON: CR XR CHEST 2V PA LATERAL from 11/23/[address] CHEST LUNG CANCER SCREEN from 02/08/2023 FINDINGS: LUNGS: Clear. No pleural abnormality seen. HEART: Normal size. AORTA: Normal diameter. BONES: Unremarkable for age. Soft tissues: Unremarkable. IMPRESSION: No acute findings. DATA REPOSITORY: RADIATION DOSE DELIVERED:
[2024-09-06 18:30] LABS: BE (Venous) 3 mmol/L (-2-3); HCO3 (Venous) 27 mmol/L (23-28); O2 Sat (Venous) 79 %; TCO2 (Venous) 24 mmol/L (24-29); pCO2 (Venous) 40 mmHg (41-51); pH (Venous) 7.44 (7.31-7.41); pO2 (Venous) 42 mmHg
[2024-09-06 18:31] LABS: Abs Immature Grans 0.03 10^3/uL (0.0-0.06); Absolute Basophil Count 0.02 10^3/uL (0.0-0.2); Absolute Eosinophil Count 0.05 10^3/uL (0.0-0.7); Absolute Lymphocyte Count 0.36 10^3/uL (1.2-3.4); Absolute Monocyte Count 0.67 10^3/uL (0.1-0.8); Absolute Neutrophil Count 8.79 10^3/uL (1.2-6.7); Basophils % 0.2 %; Eosinophils % 0.5 %; HCT 32.5 % (40.0-50.0); Immature Grans % 0.3 %; Lymphocytes % 3.6 %; MCH 32.1 pg (27.0-33.0); MCHC 36.9 % (32.0-36.0); MCV 87 fL (80-95); MPV 8.1 fL (8.0-11.0); Monocytes % 6.8 %; Neutrophils % 88.6 %; Platelet Count 141 10^3/uL (130-400); RBC 3.74 10^6/uL (4.36-5.78); RDW 12.4 % (11.8-14.1); RDW-SD 39.8 fL; WBC 9.92 10^3/uL (4.4-10.8)
[2024-09-06 18:45] LABS: INR 1.1 (0.9-1.1); PTT Activated 32.3 sec (20.6-30.2); Prothrombin Time 10.8 sec (9.1-11.1)
[2024-09-06 18:56] LABS: ALT 38 U/L (16-63); AST 36 U/L (15-37); Albumin 2.9 g/dL (3.4-5.0); Alkaline Phosphatase 81 U/L (46-116); Anion Gap 8.5 mmol/L (3-11); BUN 12 mg/dL (7-18); Bilirubin, Total 0.3 mg/dL (0.2-1.0); CO2 28.5 mmol/L (21.0-32.0); CREATININE 1.2 mg/dL (0.70-1.30); Calcium 8.5 mg/dL (8.5-10.1); Chloride 88 mmol/L (98-107); Estimated GFR 62.67 (mL/min/1.73m2); Glucose 144 mg/dL (74-106); Potassium 3.5 mmol/L (3.5-5.1); Sodium 125 mmol/L (136-145); TSH (W/Ref FT4) 4.26 uIU/mL (0.36-3.74); Total Protein 6.5 g/dL (6.4-8.2); Troponin I 47 ng/L (<or=76)
[2024-09-06] MEDS: Lactated Ringers 1,000 ML 1000 ML IV (19:00)
[2024-09-06 19:10] LABS: D-Dimer 857 ng/mlFEU (<500)
--- NOTE | 2024-09-06 19:15 | DI.CT_ITS ---
Exam(s) CT CHEST PE CTA EXAM: CT CHEST PE CTA CLINICAL HISTORY: elevated dimer, syncope, eval for PE. TECHNIQUE: Imaging Protocol: CT angiography of the chest was performed using pulmonary embolus loulou col. Multi planar reconstructions were performed. CONTRAST MATERIAL: Intravenous: Omnipaque 350 Contrast volume: 65 cc COMPARISON: CT CT CHEST LUNG CANCER SCREEN from 02/08/2023 FINDINGS: CHEST: PULMONARY ARTERIES: There are no intraluminal filling defects to suggest acute pulmonary emboli. LUNGS: There are areas of significant infiltrate in the posterior segment of the right upper lobe, th is in an area of pre-existing multiple small bullae. There is also similar appearing infiltrate in t he superior segment and basal segments of the right lower lobe, not previously present. There is roxanne e infiltrate in the opposite-left lung in the apical posterior segment of the left upper lobe contigu ous with the superior aspect of the major fissure. There is also patchy infiltrate slightly lower do wn in the left upper lobe.. No significant findings in trachea and mainstem bronchi. MEDIASTINUM: Mildly enlarged lymph nodes in the right hilum as well as some adenopathy in the subcari nal region. The left hilum acute small lymph nodes. CARDIAC: Heart size is upper normal. There is no pericardial effusion.Caliber of the thoracic aorta is within normal limits. There is no significant shift of the interventricular septum. PARTIALLY VISUALIZED UPPERMOST ABDOMEN: Right adrenal gland unremarkable. There is thickening of the left adrenal gland noted, similar to previous studies. No splenomegaly. OSSEOUS: No significant osseous lesions.No acute fractures. IMPRESSION: 1. No evidence of acute pulmonary emboli. No evidence of pulmonary infarction.No pleural effusions. 2. However, there is prominent infiltrate in the right lower lobe, also involving the superior segmen t and there is also infiltrate in the posterior aspect of the right upper lobe and posterior aspect o f the left upper lobe. Also some patchy infiltrates in the mid aspect of the left upper lobe are not ed. There is sparing of the left lower lobe. 3. Mild hilar and subcarinal adenopathy. Most probably reactive. RADIATION DOSE DELIVERED: 73.28mGy.cm Total DLP DATA REPOSITORY: All CT scans at this facility are submitted to the National Radiology Data Registry (NRDR) Dose Index Registry (DIR) with the [employer] (ACR). RADIATION OPTIMIZATION: All CT scans at this facility use at least one of these dose optimization te chniques: automated exposure control; mA and/or kV adjustment per patient size (includes targeted exa ms where dose is matched to clinical indication); or iterative reconstruction.
--- NOTE | 2024-09-06 19:45 | DI.CT_ITS ---
Exam(s) CT HEAD WO EXAM: CT HEAD WO CLINICAL HISTORY: syncope, fell hit head?. TECHNIQUE: Imaging Protocol: Axial computed tomography images with coronal and sagittal reformatted images were created and reviewed COMPARISON: No exams were available for comparison FINDINGS: There are no skull fractures. There is no fluid in the visualized paranasal sinuses. There is no evidence of intracranial hemorrhage, mass effect, or shift of midline structures. There are no extra-axial fluid collections. The ventricles are not enlarged or shifted and there is no blo od within the ventricular system nor within the basal cisterns. There is a nonacute appearing lacunar infarct in left basal ganglia. IMPRESSION: No acute intracranial findings on this noninfused CT scan of the brain. There is a non acute appearing lacunar infarct in the left basal ganglia which measures 6 mm. RADIATION DOSE DELIVERED: 849.19mGy.cm Total DLP DATA REPOSITORY: All CT scans at this facility are submitted to the National Radiology Data Registry (NRDR) Dose Index Registry (DIR) with the [employer] (ACR). RADIATION OPTIMIZATION: All CT scans at this facility use at least one of these dose optimization te chniques: automated exposure control; mA and/or kV adjustment per patient size (includes targeted exa ms where dose is matched to clinical indication); or iterative reconstruction.
[2024-09-06] MEDS: Omnipaque 350 MG/ML 100 ML BTL 65 ML IJ (19:58)
[2024-09-06] MEDS: Normal Saline - Diluent 50 ML VIAL IJ (19:59)
--- NOTE | 2024-09-06 20:29 | ED.GENADUL_ITS ---
Discharge Plan Disposition Patient Disposition: Admit to [facility] Discharge Details Chief Complaint: [id number] Clinical Impression: Community acquired pneumonia, Hypoxic respiratory failure, Acute hyponatremia, Influenza A Primary Care Provider: JOE FULLER ED Provider: Yung Bloom Home Meds and New Rx's Prescriptions: No Action amlodipine 10 mg tablet 10 mg PO DAILY Qty: 90 3RF atorvastatin [Lipitor] 20 mg tablet 20 mg PO DAILY Qty: 90 3RF triamcinolone acetonide 0.1 % cream 1 applic Topical BID PRN (Reason: psoriasis) Qty: 80 0RF chlorthalidone 25 mg tablet 25 mg PO DAILY gabapentin 300 mg capsule 300 mg PO PRN PRN Rx Instructions: Take 1-2 capsules by mouth Three times daily. levothyroxine 150 mcg Tablet 150 mcg PO DAILY aspirin 81 mg tablet,delayed release (DR/EC) 81 mg PO DAILY albuterol sulfate 90 mcg/actuation HFA aerosol inhaler 2 puff inhalation Q6H PRN (Reason: shortness of breath or wheezing) Qty: 8.5 0RF (DME) Aerochamber MV Spacer See Rx Instructions .Route Qty: 1 0RF Rx Instructions: As directed lidocaine HCl 2 % jelly in applicator 1 applic intra-urethral 4-6XD PRN (Reason: catheter insertion) Qty: 500 12RF potassium chloride 20 mEq tablet,ER particles/crystals 20 meq PO DAILY ferrous sulfate 325 mg (65 mg iron) tablet 325 mg PO DAILY losartan 25 mg tablet 12.5 mg PO DAILY omeprazole 40 mg capsule,delayed release(DR/EC) 40 mg PO DAILY tiotropium bromide [Spiriva with HandiHaler] 18 mcg capsule, w/inhalation device 1 cap inhalation DAILY Rx Instructions: puncture 1 cap using device; one dose = 2 inhalations sildenafil [Viagra] 100 mg tablet 100 mg PO DAILY PRN Rx Instructions: administer 30 minutes to 4 hours before activity cyclobenzaprine 10 mg tablet 10 mg PO TID PRN (Reason: muscle spasm) Qty: 10 0RF levofloxacin 750 mg tablet 750 mg PO DAILY Qty: 6 0RF benzonatate 100 mg capsule 100 mg PO TID Qty: 30 0RF HPI General Date/Time Provider Initiated Documentation: 09/06/24 17:46 . HPI Narrative: This is a 78-year-old male with a past medical history of 2 cardiac s tents, tobacco use, reactive airway disease, who presents today for evaluation of syncope. Patient was actually just here few hours ago, he had been having symptoms of cough for the last 3 days, he had been previously tested outpatient for flu and COVID but it was negative. He had been taking albuterol without any improvement, and had associated chills. Bedside ultrasound was performed and showed evidence of notable pneumonia. His oxygenation remained stable in the mid 90s. No evidence of sepsis. Patient was started on Levaquin out of concern for pneumonia with his pulmonary risk factors. He was given a Symbicort inhaler for home. He went home and an hour or 2 later felt quite weak and dizzy. He then had an episode of syncope. He thought he fell down onto the couch but it turns out this is actually the floor. He is not on any blood thinners. He came back to the ER for reassessment. Currently he feels dizzy and lightheaded. He denies any significant chest pain. No other complaints at this time. Related Data Home Medications ?Medication ?Instructions ?Recorded ?Confirmed amlodipine 10 mg tablet 10 mg PO DAILY #90 tab-caps 08/27/19 09/06/24 atorvastatin 20 mg tablet (Lipitor) 20 mg PO DAILY #90 tabs 08/27/19 09/06/24 triamcinolone acetonide 0.1 % 1 applic topical BID PRN psoriasis 08/27/19 09/06/24 topical cream #80 grams ferrous sulfate 325 mg (65 mg 325 mg PO DAILY 04/28/21 09/06/24 iron) tablet losartan 25 mg tablet 12.5 mg PO DAILY 04/28/21 09/06/24 potassium chloride 20 mEq 20 meq PO DAILY 04/28/21 09/06/24 tablet,extended release(part/cryst) omeprazole 40 mg capsule,delayed 40 mg PO DAILY 07/22/21 09/06/24 release chlorthalidone 25 mg tablet 25 mg PO DAILY 08/10/21 09/06/24 gabapentin 300 mg capsule 300 mg PO PRN PRN 08/10/21 09/06/24 levothyroxine 150 mcg tablet 150 mcg PO DAILY 08/10/21 09/06/24 cyclobenzaprine 10 mg tablet 10 mg PO TID PRN muscle spasm #10 11/23/22 09/06/24 tabs albuterol sulfate 90 mcg/actuation 2 puff inhalation Q6H PRN 07/12/23 09/06/24 aerosol inhaler shortness of breath or wheezing #8.5 grams aspirin 81 mg tablet,delayed 81 mg PO DAILY 07/12/23 09/06/24 release inhalational spacing device #1 ea 07/12/23 09/06/24 (Aerochamber MV spacer) lidocaine HCl 2 % mucosal jelly in 1 applic intra-urethral 4-6XD PRN 08/04/23 09/06/24 applicator catheter insertion #500 mL sildenafil 100 mg tablet (Viagra) 100 mg PO DAILY PRN 02/13/24 09/06/24 tiotropium bromide 18 mcg capsule 1 cap inhalation DAILY 02/13/24 09/06/24 with inhalation device (Spiriva with HandiHaler) benzonatate 100 mg capsule 100 mg PO TID #30 caps 09/06/24 09/06/24 levofloxacin 750 mg tablet 750 mg PO DAILY #6 tabs 09/06/24 09/06/24 Previous Rx's ?Medication ?Instructions ?Recorded amlodipine 10 mg tablet 10 mg PO DAILY #90 tab-caps 08/27/19 atorvastatin 20 mg tablet (Lipitor) 20 mg PO DAILY #90 tabs 08/27/19 triamcinolone acetonide 0.1 % 1 applic topical BID PRN psoriasis 08/27/19 topical cream #80 grams cyclobenzaprine 10 mg tablet 10 mg PO TID PRN muscle spasm #10 11/23/22 tabs albuterol sulfate 90 mcg/actuation 2 puff inhalation Q6H PRN 07/12/23 aerosol inhaler shortness of breath or wheezing #8.5 grams inhalational spacing device #1 ea 07/12/23 (Aerochamber MV spacer) lidocaine HCl 2 % mucosal jelly in 1 applic intra-urethral 4-6XD PRN 08/04/23 applicator catheter insertion #500 mL benzonatate 100 mg capsule 100 mg PO TID #30 caps 09/06/24 levofloxacin 750 mg tablet 750 mg PO DAILY #6 tabs 09/06/24 Allergies Allergy/AdvReac Type Severity Reaction Status Date / Time Sulfa (Sulfonamide Allergy Intermediate HIGH FEVER Verified 09/06/24 17:36 Antibiotics) lisinopril AdvReac Mild COUGH Verified 09/06/24 17:36 prednisone AdvReac Unknown DELIRIUM Verified 09/06/24 17:36 General Stated Complaint: [id number] SHARON: 3 Exam Narrative Exam Narrative: 1.Const: Well-nourished, Well-developed, appearing stated age 2.Eyes: PERRL, no conjunctival injection, and symmetrical lids. 3.ENT: Atraumatic external nose and ears. Moist MM. Neck: Symmetric, trachea midline, No thyromegaly. There is no evidence of raccoon eyes, santoyo sign, CSF rhinorrhea, mastoid tenderness, cranial crepitus, hemotympanum, exophthalmos, or hyphema. Patient demonstrates intact dentition with no signs of tooth avulsion or fracture, no signs of jaw deformity, no evidence of a LeFort's fracture, with an intact palate, nose and orbital region. There is no evidence of a nasal septal hematoma. No proptosis. Jaw closes symmetrically. Airway is clear. 4.CVS: +S1/S2, Peripheral pulses 2+ and equal in all extremities. Brisk ca pillary refill in all extremities. 5.RESP: Unlabored respiratory effort. Rhonchorous breath sounds 6.GI: Soft, Nontender/Nondistended, No hepatosplenomegaly. No guarding or rebound. 7.MSK: Normocephalic/Atraumatic, Extremities w/o deformity or ttp No cyanosis or clubbing, Normal movement of all extremities 8.Skin: Warm, Dry. No rashes or lesions. 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 Sensation grossly intact, no focal neurologic deficits. All 6 cardinal planes of vision are fully intact. No evidence of rotatory or vertical nystagmus. The patient demonstrated a normal [id number], good dexterity. There was no evidence of dysdiadochokinesia. Patient was able to ambulate without difficulty. There was no wide-based gait. Romberg testing was normal. Ibrh-cc-[id number] testing was normal. Sensation was intact bilaterally as well as muscle strength bilaterally for all extremities. Patient was able to verbalize butter cup with no slurring, or miss pronunciation. 10.Psych: (AAO) x3. Appropriate mood and affect Course Vital Signs Vital signs: Vital Signs Temperature 36.9 C 09/06/24 17:29 Pulse 93 H 09/06/24 17:29 Blood Pressure 110/62 09/06/24 17:29 Pulse Oximetry 90 L 09/06/24 17:29 Temperature 36.9 C 09/06/24 17:29 Pulse 84 09/06/24 19:50 Pulse 84 09/06/24 19:50 Respiratory Rate 19 09/06/24 19:50 Respiratory Effort Normal, Non-Labored 09/06/24 18:46 Respiratory Depth Normal 09/06/24 18:46 Respiratory Pattern Normal 09/06/24 18:46 Blood Pressure 110/62 09/06/24 17:29 Pulse Oximetry 95 09/06/24 19:50 Oxygen Delivery Method Nasal Cannula 09/06/24 17:29 Oxygen Flow Rate 3 09/06/24 17:29 Comment patient 86% on RA 09/06/24 17:29 Lab/Test Results Lab/Test Results: Laboratory Tests Range/Units 09/06/24 18:24 WBC (4.4-10.8) 10^3/uL 9.92 RBC (4.36-5.78) 10^6/uL 3.74 L Hgb (13.5-17.5) g/dL 12.0 L Hct (40.0-50.0) % 32.5 L MCV (80-95) fL 87 MCH (27.0-33.0) pg 32.1 MCHC (32.0-36.0) % 36.9 H RDW (11.8-14.1) % 12.4 Plt Count (130-400) 10^3/uL 141 MPV (8.0-11.0) fL 8.1 Immature Gran % % 0.3 Neutrophils % % 88.6 Lymphocytes % % 3.6 Monocytes % % 6.8 Eosinophils % % 0.5 Basophils % % 0.2 Nucleated RBC % (0.0-0.3) % 0.0 Absolute Neutrophils (1.2-6.7) 10^3/uL 8.79 H Absolute Lymphocytes (1.2-3.4) 10^3/uL 0.36 L Absolute Monocytes (0.1-0.8) 10^3/uL 0.67 Absolute Eosinophils (0.0-0.7) 10^3/uL 0.05 Absolute Basophils (0.0-0.2) 10^3/uL 0.02 PT (9.1-11.1) sec 10.8 INR (0.9-1.1) 1.1 APTT (20.6-30.2) sec 32.3 H D-Dimer (<500) ng/mlFEU 857 H VBG pH (7.31-7.41) 7.44 H VBG pCO2 (41-51) mmHg 40 L VBG pO2 mmHg 42 VBG HCO3 (23-28) mmol/L 27 VBG Total CO2 (24-29) mmol/L 24 VBG O2 Saturation % 79 VBG Base Excess (-2-3) mmol/L 3 Sodium (136-145) mmol/L 125 L Potassium (3.5-5.1) mmol/L 3.5 Chloride (98-107) mmol/L 88 L Carbon Dioxide (21.0-32.0) mmol/L 28.5 Anion Gap (3-11) mmol/L 8.5 BUN (7-18) mg/dL 12 Creatinine (0.70-1.30) mg/dL 1.2 Est GFR (CKD-EPI 2020) (mL/min/1.73m2) 62.67 Glucose (74-106) mg/dL 144 H Calcium (8.5-10.1) mg/dL 8.5 Total Bilirubin (0.2-1.0) mg/dL 0.3 AST (15-37) U/L 36 ALT (16-63) U/L 38 Alkaline Phosphatase (46-116) U/L 81 Troponin I (<or=76) ng/L 47 Total Protein (6.4-8.2) g/dL 6.5 Albumin (3.4-5.0) g/dL 2.9 L TSH (0.36-3.74) uIU/mL 4.26 H Medical Decision Making This is a 78-year-old male with a past medical history of 2 cardiac stents, chronic self-catheterization, tobacco use, reactive airway disease, who presents today for evaluation of syncope. Patient was actually just here few hours ago, he had been having symptoms of cough for the last 3 days, he had been previously tested outpatient for flu and COVID but it was negative. He had been taking albuterol without any improvement, and had associated chills. Bedside ultrasound was performed and showed evidence of notable pneumonia. His oxygenation remained stable in the mid 90s. No evidence of sepsis. Patient was started on Levaquin out of concern for pneumonia with his pulmonary risk factors. He was given a Symbicort inhaler for home. He went home and an hour or 2 later felt quite weak and dizzy. He then had an episode of syncope. He thought he fell down onto the couch but it turns out this is actually the floor. He is not on any blood thinners. He came back to the ER for reassessment. Currently he feels dizzy and lightheaded. He denies any significant chest pain. No other complaints at this time. Symptoms continue to demonstrate evidence clinically suspicious for pneumonia. He has received treatment. EKG shows no evidence of STEMI. No prolonged QTc. Concern for potential PE dehydration or hypoxic event. Will evaluate for these concerning etiologies, no evidence of trauma to the head however with his fall and syncope will get CT imaging of the brain. Will monitor closely and reassess. Will rehydrate and give meclizine. Patient is on 2 L of oxygen right now saturating at 95%. 9:12 PM Chest x-ray was read as negative, however my ultrasound findings were certainly concerning for pneumonia. In addition to this I do feel that there is evidence of infiltrate in the right. CT scan was ordered after D-dimer came back elevated. This shows multilobar pneumonia in the upper right middle lobes. White count is normal, VBG shows no hypercarbic respiratory acidosis. Troponins are normal, TSH high at 4.26. Influenza A is positive, COVID and RSV are negative. Patient has already received oral Levaquin on his prior visit. CT scan of the head negative for acute process. With the patient's current mild need for oxygenation, his syncope at home which I feel at this time is likely secondary to his pneumonia, I do feel that admission is reasonable. Patient's sodium is 125, he was given a liter of balanced fluids/lactated Ringer's. Out of an abundance of precaution we will give a dose of Tamiflu. Patient is somewhat resistant to being admitted, however with his symptomatology I do feel that this would be beneficial this evening out of concern for worsening decompensation at home. After long discussion with the patient, his , and his daughter who is a nurse, patient has agreed to stay. He states he does feel somewhat anxious. Will give a small dose of oral Ativan at 0.5 mg. Discussed the case with hospitalist Dr. Montez, he agrees with the assessment and plan. I have extensively reviewed the treatment plan with the patient. I have addressed all patient concerns at this time. I have also discussed the plan with the admitting physician and they agree with the current assessment and plan and have agreed to assume responsibility for the patient. All parties demonstrate v erbal understanding and agreement with our assessment and plan at this time. The documentation in this chart was dictated using [employer] dictation software. Please excuse any dictation errors. FINDINGS: Brain: There is no acute intracranial hemorrhage, mass effect or midline shift. There is no large acute territorial cerebral infarct. There are small hypodensities in the bilateral basal ganglia, suggestive of remote lacunar infarcts. Cerebral ventricles: No ventriculomegaly. Paranasal sinuses: Visualized sinuses are unremarkable. No fluid levels. Mastoid air cells: Visualized mastoid air cells are well aerated. Bones: Unremarkable. No acute fracture. Soft tissues: Unremarkable. IMPRESSION: No acute intracranial hemorrhage, mass effect or midline shift. Thank you for allowing us to participate in the care of your patient. Dictated and Authenticated by: Haroon Benavides FINDINGS: Pulmonary arteries: No pulmonary emboli. Aorta: No aortic aneurysm. No aortic dissection. Lungs: Multilobar pneumonia is mild in both upper lobes and moderate in the right middle lobe. Moderate pulmonary emphysema, similar to prior. Bronchial wall thickening [id number] suggesting a chronic acute or mild bronchitis superimposed on pneumonia. Impaction of small distal airways. Pleural spaces: No pneumothorax. No pleural effusion. Heart: New mild cardiomegaly. Lymph nodes: Moderate reactive appearing mediastinal adenopathy. Adrenal glands: Probable hypertrophy versus chronic adenoma of the left adrenal gland, similar to prior. Bones/joints: Chronic bony changes with no acute fracture. Soft tissues: No suspicious lesions. IMPRESSION: 1. Multilobar pneumonia is mild in both upper lobes and moderate in the right middle lobe. 2. Additional findings as described. Thank you for allowing us to participate in the care of your patient. Dictated and Authenticated by: Kylie Guillaume MD 09/06/2024 8:58 PM Eastern Time ([place] & [place]) Quality:SDOH Health Related Social Needs: No Data to Display Critical Care Time Critical Care Time Critical Care Time: Yes Total Critical Care Time: 45 Attestation: Upon my evaluation, this patient had a high probability of imminent or life- threatening deterioration, which required my direct attention, intervention, and personal management. I have personally provided 45 minutes of critical care time exclusive of time spent on separately billable procedures. Time includes review of laboratory data, radiology results, discussion with consultants, and monitoring for potential decompensation. Interventions were performed as gino orellana [facility] All Active Problems (Updated 09/06/24 @ 21:18 by Yung Bloom DO) Influenza A (Acute) Acute hyponatremia (Acute) Hypoxic respiratory failure (Acute) Community acquired pneumonia (Acute) Pneumonia (Acute) Viral respiratory illness (Acute) Encounter for screening colonoscopy (Acute) Hypothyroidism (Chronic) Alcohol abuse (Chronic) Chondrocalcinosis of right knee (Acute) Arthritis of right knee (Acute) Lumbar radiculopathy (Acute) Urinary retention with incomplete bladder emptying (Acute) Esophagitis (Acute) Gastritis (Acute) Duodenitis (Acute) Sessile colonic polyp (Acute) Tubulovillous adenoma (Acute) Anemia (Chronic) Muscle spasm (Acute) Pain of right thigh (Acute) Medical History (Updated 09/06/24 @ 21:18 by Yung Bloom DO) Hyperplastic colon polyp Self-catheterizes urinary bladder Coronary artery disease (05/14/14) Leg cramps Lumbar radiculopathy Persistent insomnia Dizziness occasional Dilatation of kidney collecting system Anemia Pulmonary infiltrates Cigarette smoker History of adenomatous polyp of colon Ankle pain, left Hypokalemia Nocturnal leg cramps Erectile dysfunction Sciatica Edentulous Prediabetes Alcohol consumption heavy Fibula fracture Gout Lateral epicondylitis Urinary disorder Surgical History (Updated 03/19/24 @ 08:46 by Quin Dwyer) History of esophagogastroduodenoscopy (EGD) (~03/2024) History of colonoscopy with polypectomy (~06/01/21) Stent placement (~2010) LAD x 3- Last saw cardiology 2016. F/U with PCP Colonoscopy - MAC (11/14/17) Family History Mother , age 83 Essential hypertension Heart disease Father , age 75 Heart disease Sister No problems noted. Brother , age 68 Heart disease Alcohol abuse Maternal Grandfather No problems noted. Maternal Grandmother No problems noted. Sister No problems noted. Sister No problems noted. Son No problems noted. Son No problems noted. Daughter No problems noted. Daughter No problems noted. Social History Smoking/Tobacco Use Status: Current every day Tobacco Type: cigarettes Years smoked: 50 Quit status: has quit before Smoking risk assessment performed?: Yes Alcohol Intake: current Alcohol Intake frequency: 3 or more drinks per day Alc ohol type: beer Drug use: Never Substance use type: does not use Details: alcohol t-1 x2 beers. Caregiver/Support person: No Household members: spouse Housing: house Communication Needs: None Do you need help understanding health information?: Rarely Pets and animals: Yes Pets and animals: dog(s) Sexually active: No Do you think of yourself as: straight/heterosexual Current gender identity: male What is your relationship status?: How often do you talk on the phone with friends or family?: three or more times per week How often do you get together with friends or relatives?: decline to answer How often do you attend uatsdin or denominational services?: decline to answer Do you belong to any clubs or organized social groups?: no Panel score (0-1 are the most socially isolated patients): 2 What type of physical activity do you participate in: none Jennifer/Gnosticist: Alevism Special jennifer needs: No Seatbelt use: sometimes Drive intox or ride w/intox 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
[2024-09-06 20:31] LABS: Troponin I 45 ng/L (<or=76)
--- NOTE | 2024-09-06 20:37 | DI.VRAD_ITS ---
PROCEDURE INFORMATION: Exam: CT Head Without Contrast Exam date and time: 09/06/2024 8:04 PM Age: 78 years old Clinical indication: Syncope, fell hit head? TECHNIQUE: Imaging protocol: Computed tomography of the head without contrast. COMPARISON: No relevant prior studies available. FINDINGS: Brain: There is no acute intracranial hemorrhage, mass effect or midline shift. There is no large acute territorial cerebral infarct. There are small hypodensities in the bilateral basal ganglia, suggestive of remote lacunar infarcts. Cerebral ventricles: No ventriculomegaly. Paranasal sinuses: Visualized sinuses are unremarkable. No fluid levels. Mastoid air cells: Visualized mastoid air cells are well aerated. Bones: Unremarkable. No acute fracture. Soft tissues: Unremarkable. IMPRESSION: No acute intracranial hemorrhage, mass effect or midline shift. Dictated and Authenticated by: Rosemary Barragan MD. Orderin Wolf Barragan MD
--- NOTE | 2024-09-06 20:58 | DI.VRAD_ITS ---
PROCEDURE INFORMATION: Exam: CTA Chest With Contrast Exam date and time: 09/06/2024 8:09 PM Age: 78 years old Clinical indication: Other: Elevated dimer, syncope, eval for pe TECHNIQUE: Imaging protocol: Computed tomographic angiography of the chest with contrast. Exam focused on the arteries. 3D rendering (Not supervised by radiologist): MIP and/or 3D reconstructed images were created by the technologist. Contrast material: OMNIPAQUE 350; Contrast volume: 65 ml; Contrast route: INTRAVENOUS (IV); COMPARISON: CT CHEST LUNG CANCER SCREEN 02/08/2023 11:02 AM FINDINGS: Pulmonary arteries: No pulmonary emboli. Aorta: No aortic aneurysm. No aortic dissection. Lungs: Multilobar pneumonia is mild in both upper lobes and moderate in the right middle lobe. Moderate pulmonary emphysema, similar to prior. Bronchial wall thickening [id number] suggesting a chronic acute or mild bronchitis superimposed on pneumonia. Impaction of small distal airways. Pleural spaces: No pneumothorax. No pleural effusion. Heart: New mild cardiomegaly. Lymph nodes: Moderate reactive appearing mediastinal adenopathy. Adrenal glands: Probable hypertrophy versus chronic adenoma of the left adrenal gland, similar to prior. Bones/joints: Chronic bony changes with no acute fracture. Soft tissues: No suspicious lesions. IMPRESSION: 1. Multilobar pneumonia is mild in both upper lobes and moderate in the right middle lobe. 2. Additional findings as described. Dictated and Authenticated by: Kylie Guillaume MD. Orderin Wolf Barragan MD
[2024-09-06] MEDS: Meclizine 25 MG TAB PO (21:13)
[2024-09-06] MEDS: LORazepam 0.5 MG TAB PO (21:32)
[2024-09-06] MEDS: Oseltamivir 75 MG CAP PO (21:32)
--- NOTE | 2024-09-06 21:46 | W.PM.HP.N ---
Date of service: 09/06/24 Time of Service: 21:47 Assessment and Plan Assessment and plan (1) Syncope and collapse: Start date: 09/06/24 Status: Acute Assessment and plan: This is a 78-year-old gentleman who was seen earlier in the day in the ED and sent home treatment of pneumonia with Levaquin orally and Symbicort added to his rescue inhaler. He is a daily smoker. He was at home and felt dizzy having a syncopal episode return to the ED. He earlier tested negative for flu and then positive for flu with return. Most likely his increased weakness with his acute infection and significant pneumonia prompted his syncopal episode. He also may be slightly dry. He will be admitted for IV hydration, IV antibiotic therapy and close monitoring. Aggressive respiratory treatment with his pneumonia and smoking history with nebulizers but hold on steroids. He is a full code and will get on telemetry. It is anticipated that he will return home with care of his family. (2) Hypoxic respiratory failure: Start date: 09/06/24 Status: Acute Assessment and plan: O2 supplementation and aggressive nebulizer treatments. Hold on steroid treatment. Tobacco cessation will be recommended. He is not chronically on home O2 and should be discharged O2. (3) Pneumonia: Start date: 09/06/24 Status: Acute Assessment and plan: Patient does have bilateral upper lobe and right middle lobe infiltrates with slight hypoxemia. Continue O2 supplementation. Patient is not retaining CO2. He does smoke daily and does have some wheezing which will be treated with aggressive nebulizer treatments. He would not be placed on IV steroids. He has no significant COPD and only uses a rescue inhaler at home. (4) Influenza A: Start date: 09/06/24 Status: Acute Assessment and plan: Patient will be started on Tamiflu with his acute infection. This may be complicating his pneumonia. (5) Hypomagnesemia: Start date: 09/06/24 Status: Acute Assessment and plan: Replete with IV magnesium and trend labs. (6) Hyponatremia: Status: Chronic Assessment and plan: Slightly decreased with patient chronically drinking alcohol. Monitor with IV hydration. (7) Alcohol abuse: Status: Chronic Assessment and plan: Patient does not drink. Daily but has never had withdrawals. He does not have permissive day. This may be account for some of his white disease. Monitor for alcohol withdrawal while hospitalized. (8) Cigarette smoker: Assessment and plan: Patient does smoke daily and may have increased secretions in the hospital all cigarettes. He was offered a nicotine patch if needed. (9) Coronary artery disease: Status: Chronic Assessment and plan: Not exacerbated with patient's acute illness with monitoring while hospitalized. Patient is a full code. (10) Hypothyroidism: Status: Chronic Assessment and plan: TSH is elevated with pending free T4. Patient may need adjustment of his Synthroid supplement as an outpatient with his PCP. History of Present Illness History of Present Illness Chief Complaint: Syncopal episode at home with acute respiratory infection. Narrative: This is a 78-year-old male patient who was seen in the ED earlier in the day of admission and sent home for treatment of pneumonia with Levaquin and maximizing treatment of bronchospasm with patient being a smoker. He also drinks beer daily. Upon returning home the patient felt weak and had a syncopal episode falling to the floor but did not injure himself. He returned to the ED and after earlier testing negative he re-tested positive for flu and had significant infiltrates on CT of the chest were performed to rule out PE. CT of the head was negative for any acute injury. He felt better with IV hydration I did have magnesium repleted with is measuring low on current chlorthalidone with potassium supplement. He does drink beer daily and did have a low sodium which has been a problem in the past. This should correct with IV hydration. He has never had alcohol withdrawal symptoms though he does drink beer daily. He also smokes daily. He was admitted for IV antibiotic therapy because of failed outpatient therapy and close monitoring with a syncopal episode and probable dehydration. He also was initiated on treatment for his flu with Tamiflu orally. Being a daily smoker, he will have aggressive nebulizer treatments and offered nicotine supplement if desired. He is a full code. Review of Systems Narrative: 13 point review of systems otherwise unrevealing or stable. [facility] All Active Problems (Updated 09/07/24 @ 03:47 by Jose L Montez) Hypomagnesemia (Acute) Syncope and collapse (Acute) Hyponatremia (Chronic) Influenza A (Acute) Acute hyponatremia (Chronic) Hypoxic respiratory failure (Acute) Community acquired pneumonia (Acute) Pneumonia (Acute) Viral respiratory illness (Acute) Encounter for screening colonoscopy (Acute) Hypothyroidism (Chronic) Alcohol abuse (Chronic) Chondrocalcinosis of right knee (Acute) Arthritis of right knee (Acute) Lumbar radiculopathy (Acute) Urinary retention with incomplete bladder emptying (Acute) Esophagitis (Acute) Gastritis (Acute) Duodenitis (Acute) Sessile colonic polyp (Acute) Tubulovillous adenoma (Acute) Anemia (Chronic) Muscle spasm (Acute) Pain of right thigh (Acute) Coronary artery disease (Chronic) Medical History (Updated 09/07/24 @ 03:47 by Jose L Montez) Hyperplastic colon polyp Self-catheterizes urinary bladder Coronary artery disease (05/14/14) Leg cramps Lumbar radiculopathy Persistent insomnia Dizziness occasional Dilatation of kidney collecting system Anemia Pulmonary infiltrates Cigarette smoker History of adenomatous polyp of colon Ankle pain, left Hypokalemia Nocturnal leg cramps Erectile dysfunction Sciatica Edentulous Prediabetes Alcohol consumption heavy Fibula fracture Gout Lateral epicondylitis Urinary disorder Surgical History History of esophagogastroduodenoscopy (EGD) (~03/2024) History of colonoscopy with polypectomy (~06/01/21) Stent placement (~2010) LAD x 3- Last saw cardiology 2016. F/U with PCP Colonoscopy - MAC (11/14/17) Family History Mother , age 83 Essential hypertension Heart disease Father , age 75 Heart disease Sister No problems noted. Brother , age 68 Heart disease Alcohol abuse Maternal Grandfather No problems noted. Maternal Grandmother No problems noted. Sister No problems noted. Sister No problems noted. Son No problems noted. Son No problems noted. Daughter No problems noted. Daughter No problems noted. Social History Smoking/Tobacco Use Status: Current every day Tobacco Type: cigarettes Years smoked: 50 Quit status: has quit before Smoking risk assessment performed?: Yes Alcohol Intake: current Alcohol Intake frequency: 3 or more drinks per day Alcohol type: beer Drug use: Never Substance use type: does not use Details: alcohol t-1 x2 beers. Caregiver/Support person: No Household members: spouse Housing: house Communication Needs: None Do you need help understanding health information?: Rarely Pets and animals: Yes Pets and animals: dog(s) Sexually active: No Do you think of yourself as: straight/heterosexual Current gender identity: male What is your relationship status?: How often do you talk on the phone with friends or family?: three or more times per week How often do you get together with friends or relatives?: decline to answer How often do you attend restorationist or moravian services?: decline to answer Do you belong to any clubs or organized social groups?: no Panel score (0-1 are the most socially isolated patients): 2 What type of physical activity do you participate in: none Jennifer/Bahai: Taoism Special jennifer needs: No Seatbelt use: sometimes Drive intox or ride w/intox deliver driver: No Do you feel safe at home: Yes Do you feel safe in your relationship?: Yes Additional [facility] Med[facility] Allergies and Home Medications Allergies Allergy/AdvReac Type Severity Reaction Status Date / Time Sulfa (Sulfonamide Allergy Intermediate HIGH FEVER Verified 09/06/24 17:36 Antibiotics) lisinopril AdvReac Mild COUGH Verified 09/06/24 17:36 prednisone AdvReac Unknown DELIRIUM Verified 09/06/24 17:36 Home Medications ?Medication ?Instructions ?Recorded ?Confirmed ?Type amlodipine 10 mg tablet 10 mg PO DAILY #90 tab-caps 08/27/19 09/06/24 Rx atorvastatin 20 mg tablet (Lipitor) 20 mg PO DAILY #90 tabs 08/27/19 09/06/24 Rx triamcinolone acetonide 0.1 % 1 applic topical BID PRN psoriasis 08/27/19 09/06/24 Rx topical cream #80 grams ferrous sulfate 325 mg (65 mg 325 mg PO DAILY 04/28/21 09/06/24 History iron) tablet losartan 25 mg tablet 12.5 mg PO DAILY 04/28/21 09/06/24 History potassium chloride 20 mEq 20 meq PO DAILY 04/28/21 09/06/24 History tablet,extended release(part/cryst) omeprazole 40 mg capsule,delayed 40 mg PO DAILY 07/22/21 09/06/24 History release chlorthalidone 25 mg tablet 25 mg PO DAILY 08/10/21 09/06/24 History gabapentin 300 mg capsule 300 mg PO PRN PRN 08/10/21 09/06/24 History levothyroxine 150 mcg tablet 150 mcg PO DAILY 08/10/21 09/06/24 History cyclobenzaprine 10 mg tablet 10 mg PO TID PRN muscle spasm #10 11/23/22 09/06/24 Rx tabs albuterol sulfate 90 mcg/actuation 2 puff inhalation Q6H PRN 07/12/23 09/06/24 Rx aerosol inhaler shortness of breath or wheezing #8.5 grams aspirin 81 mg tablet,delayed 81 mg PO DAILY 07/12/23 09/06/24 History release inhalational spacing device #1 ea 07/12/23 09/06/24 Rx (Aerochamber MV spacer) lidocaine HCl 2 % mucosal jelly in 1 applic intra-urethral 4-6XD PRN 08/04/23 09/06/24 Rx applicator catheter insertion #500 mL sildenafil 100 mg tablet (Viagra) 100 mg PO DAILY PRN 02/13/24 09/06/24 History tiotropium bromide 18 mcg capsule 1 cap inhalation DAILY 02/13/24 09/06/24 History with inhalation device (Spiriva with HandiHaler) benzonatate 100 mg capsule 100 mg PO TID #30 caps 09/06/24 09/06/24 Rx levofloxacin 750 mg tablet 750 mg PO DAILY #6 tabs 09/06/24 09/06/24 Rx Exam Narrative Exam Narrative: General: Patient appears appropriate for age, mesomorphic and slightly obese, alert and oriented x 3 and in no acute distress. HEENT: Normocephalic, eyes with pupils equal and react to light symmetrically, extraocular movement intact and sclera anicteric. Oropharynx with dry mucosa and fair dentition. Neck: Supple without JVD. Back: Normal posture without CVA tenderness. Lungs: Bronchovesicular breath sounds diffusely with increased expiratory phase and scant expiratory wheeze especially with golf. No focalizing rales but coarse crackles diffusely over upper lung ortiz. No rhonchi. Heart: Tachycardic rate with normal rhythm. No murmurs or gallops appreciated. Abdomen: normal contour, soft without guarding or rebound, no palpable hepatosplenomegaly. Bowel sounds positive all quadrants. Genitalia/rectal: Exam deferred. Extremities: No clubbing, cyanosis or pitting edema. Good capillary refill. Skin: Normal color with actinic changes over sun as well as areas, rough texture, warm and moist. Neuro: Cranial nerves II through XII grossly intact, no focalizing motor deficits or tremor. Psych: Normal affect and mood. No abnormal thought processes. Remote and recent memory grossly intact. Results Imaging Imaging Studies: Exam: CT Head Without Contrast Exam date and time: 09/06/2024 8:04 PM Age: 78 years old Clinical indication: Syncope, fell hit head? TECHNIQUE: Imaging protocol: Computed tomography of the head without contrast. COMPARISON: No relevant prior studies available. FINDINGS: Brain: There is no acute intracranial hemorrhage, mass effect or midline shift. There is no large acute territorial cerebral infarct. There are small hypodensities in the bilateral basal ganglia, suggestive of remote lacunar infarcts. Cerebral ventricles: No ventriculomegaly. Paranasal sinuses: Visualized sinuses are unremarkable. No fluid levels. Mastoid air cells: Visualized mastoid air cells are well aerated. Bones: Unremarkable. No acute fracture. Soft tissues: Unremarkable. IMPRESSION: No acute intracranial hemorrhage, mass effect or midline shift. Exam: CTA Chest With Contrast Exam date and time: 09/06/2024 8:09 PM Age: 78 years old Clinical indication: Other: Elevated dimer, syncope, eval for pe TECHNIQUE: Imaging protocol: Computed tomographic angiography of the chest with contrast. Exam focused on the arteries. 3D rendering (Not supervised by radiologist): MIP and/or 3D reconstructed images were created by the technologist. Contrast material: OMNIPAQUE 350; Contrast volume: 65 ml; Contrast route: INTRAVENOUS (IV); COMPARISON: CT CHEST LUNG CANCER SCREEN 02/08/2023 11:02 AM FINDINGS: Pulmonary arteries: No pulmonary emboli. Aorta: No aortic aneurysm. No aortic dissection. Lungs: Multilobar pneumonia is mild in both upper lobes and moderate in the right middle lobe. Moderate pulmonary emphysema, similar to prior. Bronchial wall thickening [id number] suggesting a chronic acute or mild bronchitis superimposed on pneumonia. Impaction of small distal airways. Pleural spaces: No pneumothorax. No pleural effusion. Heart: New mild cardiomegaly. Lymph nodes: Moderate reactive appearing mediastinal adenopathy. Adrenal glands: Probable hypertrophy versus chronic adenoma of the left adrenal gland, similar to prior. Bones/joints: Chronic bony changes with no acute fracture. Soft tissues: No suspicious lesions. IMPRESSION: 1. Multilobar pneumonia is mild in both upper lobes and moderate in the right middle lobe. 2. Additional findings as described. Labs 09/06/24 18:24 09/06/24 18:24 Labs: Laboratory Results - last 24 hr 09/06/24 09/06/24 18:24 20:03 WBC 9.92 RBC 3.74 L Hgb 12.0 L Hct 32.5 L MCV 87 MCH 32.1 MCHC 36.9 H RDW 12.4 Plt Count 141 MPV 8.1 Immature Gran % 0.3 Neutrophils % 88.6 Lymphocytes % 3.6 Monocytes % 6.8 Eosinophils % 0.5 Basophils % 0.2 Nucleated RBC % 0.0 Absolute Neutrophils 8.79 H Absolute Lymphocytes 0.36 L Absolute Monocytes 0.67 Absolute Eosinophils 0.05 Absolute Basophils 0.02 PT 10.8 INR 1.1 APTT 32.3 H D-Dimer 857 H VBG pH 7.44 H VBG pCO2 40 L VBG pO2 42 VBG HCO3 27 VBG Total CO2 24 VBG O2 Saturation 79 VBG Base Excess 3 Sodium 125 L Potassium 3.5 Chloride 88 L Carbon Dioxide 28.5 Anion Gap 8.5 BUN 12 Creatinine 1.2 Est GFR (CKD-EPI 2020) 62.67 Glucose 144 H Calcium 8.5 Total Bilirubin 0.3 AST 36 ALT 38 Alkaline Phosphatase 81 Troponin I 47 45 Total Protein 6.5 Albumin 2.9 L TSH 4.26 H Last Vital Signs Temp 36.9 C 09/06/24 17:29 Pulse 84 09/06/24 19:50 Resp 19 09/06/24 19:50 BP 110/62 09/06/24 17:29 Pulse Ox 95 09/06/24 19:50 Time Spent Time spent with Patient: >75 minutes Time was spent: preparing to see the patient(eg.review tests), obtaining and/or reviewing separately otained hiistory, ordering medications,tests, procedures, indepentently interpreting results, counseling the patient and care coordination
--- NOTE | 2024-09-06 23:31 | W.PC.ACHO ---
Registration Status: Primary Language: Preferred Language: ED Information & Data Chief Complaint [id number] 09/06/24 20:33 Triage Note Patient was here recently. 09/06/24 17:29 Patient complaining of passing out, fatigue Medical / Surgical History (Last Updated 09/06/24 @ 21:54 by Jose L Montez) Hyperplastic colon polyp Self-catheterizes urinary bladder Coronary artery disease (05/14/14) Leg cramps Lumbar radiculopathy Persistent insomnia Dizziness Dilatation of kidney collecting system Anemia Pulmonary infiltrates Cigarette smoker History of adenomatous polyp of colon Ankle pain, left Hypokalemia Nocturnal leg cramps Erectile dysfunction Sciatica Edentulous Prediabetes Alcohol consumption heavy Fibula fracture Gout Lateral epicondylitis Urinary disorder (Last Reviewed 09/06/24 @ 21:47 by Jose L Montez) History of esophagogastroduodenoscopy (EGD) (~03/2024) History of colonoscopy with polypectomy (~06/01/21) Stent placement (~2010) Colonoscopy - MAC (11/14/17) Most Recent Vital Signs Temperature 36.9 C 09/06/24 17:29 Pulse 87 09/06/24 23:22 Pulse 88 09/06/24 21:01 Respiratory Rate 22 09/06/24 21:01 Respiratory Effort Normal, Non-Labored 09/06/24 18:46 Respiratory Depth Normal 09/06/24 18:46 Respiratory Pattern Normal 09/06/24 18:46 Blood Pressure 150/80 H 09/06/24 23:22 Blood Pressure Mean 96 09/06/24 21:15 Pulse Oximetry 93 09/06/24 23:22 Oxygen Delivery Method Nasal Cannula 09/06/24 17:29 Oxygen Flow Rate 3 09/06/24 17:29 Pain Level 0 09/06/24 23:22 Comment patient 86% on RA 09/06/24 17:29 Allergies Sulfa (Sulfonamide Antibiotics) Allergy (Intermediate, Verified 09/06/24 17:36) HIGH FEVER lisinopril Adverse Reaction (Mild, Verified 09/06/24 17:36) COUGH prednisone Adverse Reaction (Unknown, Verified 09/06/24 17:36) DELIRIUM pt takes, states he is not allergic Precautions Isolation Standard precaution 09/06/24 17:37 Active Medications Generic Name Dose Route Start Last Admin Trade Name Freq PRN Reason Stop Dose Admin Iohexol 65 ml 09/06/24 20:00 09/06/24 19:58 Omnipaque 350 Mg/Ml 100 Ml Btl IJ 10/06/24 23:59 65 ml DIRECTED LIZ Administration Sodium Chloride 50 ml 09/06/24 20:00 09/06/24 19:59 Normal Saline - Diluent 50 Ml Vial IJ 50 ml .FOR DI USE LIZ Administration IV IV Catheter Type [Right Saline Lock Antecubital] IV Catheter Gauge [Right 18 Antecubital] Diagnostics 09/06/24 09/06/24 09/06/24 Range/Units 20:54 20:25 20:03 WBC (4.4-10.8) 10^3/uL RBC (4.36-5.78) 10^6/uL Hgb (13.5-17.5) g/dL Hct (40.0-50.0) % MCV (80-95) fL MCH (27.0-33.0) pg MCHC (32.0-36.0) % RDW (11.8-14.1) % Plt Count (130-400) 10^3/uL MPV (8.0-11.0) fL Immature Gran % % Neutrophils % % Lymphocytes % % Monocytes % % Eosinophils % % Basophils % % Nucleated RBC % (0.0-0.3) % Absolute Neutrophils (1.2-6.7) 10^3/uL Absolute Lymphocytes (1.2-3.4) 10^3/uL Absolute Monocytes (0.1-0.8) 10^3/uL Absolute Eosinophils (0.0-0.7) 10^3/uL Absolute Basophils (0.0-0.2) 10^3/uL PT (9.1-11.1) sec INR (0.9-1.1) APTT (20.6-30.2) sec D-Dimer (<500) ng/mlFEU VBG pH (7.31-7.41) VBG pCO2 (41-51) mmHg VBG pO2 mmHg VBG HCO3 (23-28) mmol/L VBG Total CO2 (24-29) mmol/L VBG O2 Saturation % VBG Base Excess (-2-3) mmol/L Sodium (136-145) mmol/L Potassium (3.5-5.1) mmol/L Chloride (98-107) mmol/L Carbon Dioxide (21.0-32.0) mmol/L Anion Gap (3-11) mmol/L BUN (7-18) mg/dL Creatinine (0.70-1.30) mg/dL Est GFR (CKD-EPI 2020) (mL/min/1.73m2) Glucose (74-106) mg/dL Calcium (8.5-10.1) mg/dL Total Bilirubin (0.2-1.0) mg/dL AST (15-37) U/L ALT (16-63) U/L Alkaline Phosphatase (46-116) U/L Troponin I Cancelled 45 (<or=76) ng/L Total Protein (6.4-8.2) g/dL Albumin (3.4-5.0) g/dL TSH (0.36-3.74) uIU/mL Free T4 COVID-19 Source Cancelled SARS-CoV-2 (PCR) Cancelled Influenza Type A (PCR) Cancelled Influenza Type B (PCR) Cancelled RSV (PCR) Cancelled 09/06/24 Range/Units 18:24 WBC 9.92 (4.4-10.8) 10^3/uL RBC 3.74 L (4.36-5.78) 10^6/uL Hgb 12.0 L (13.5-17.5) g/dL Hct 32.5 L (40.0-50.0) % MCV 87 (80-95) fL MCH 32.1 (27.0-33.0) pg MCHC 36.9 H (32.0-36.0) % RDW 12.4 (11.8-14.1) % Plt Count 141 (130-400) 10^3/uL MPV 8.1 (8.0-11.0) fL Immature Gran % 0.3 % Neutrophils % 88.6 % Lymphocytes % 3.6 % Monocytes % 6.8 % Eosinophils % 0.5 % Basophils % 0.2 % Nucleated RBC % 0.0 (0.0-0.3) % Absolute Neutrophils 8.79 H (1.2-6.7) 10^3/uL Absolute Lymphocytes 0.36 L (1.2-3.4) 10^3/uL Absolute Monocytes 0.67 (0.1-0.8) 10^3/uL Absolute Eosinophils 0.05 (0.0-0.7) 10^3/uL Absolute Basophils 0.02 (0.0-0.2) 10^3/uL PT 10.8 (9.1-11.1) sec INR 1.1 (0.9-1.1) APTT 32.3 H (20.6-30.2) sec D-Dimer 857 H (<500) ng/mlFEU VBG pH 7.44 H (7.31-7.41) VBG pCO2 40 L (41-51) mmHg VBG pO2 42 mmHg VBG HCO3 27 (23-28) mmol/L VBG Total CO2 24 (24-29) mmol/L VBG O2 Saturation 79 % VBG Base Excess 3 (-2-3) mmol/L Sodium 125 L (136-145) mmol/L Potassium 3.5 (3.5-5.1) mmol/L Chloride 88 L (98-107) mmol/L Carbon Dioxide 28.5 (21.0-32.0) mmol/L Anion Gap 8.5 (3-11) mmol/L BUN 12 (7-18) mg/dL Creatinine 1.2 (0.70-1.30) mg/dL Est GFR (CKD-EPI 2020) 62.67 (mL/min/1.73m2) Glucose 144 H (74-106) mg/dL Calcium 8.5 (8.5-10.1) mg/dL Total Bilirubin 0.3 (0.2-1.0) mg/dL AST 36 (15-37) U/L ALT 38 (16-63) U/L Alkaline Phosphatase 81 (46-116) U/L Troponin I 47 (<or=76) ng/L Total Protein 6.5 (6.4-8.2) g/dL Albumin 2.9 L (3.4-5.0) g/dL TSH 4.26 H (0.36-3.74) uIU/mL Free T4 Pending COVID-19 Source SARS-CoV-2 (PCR) Influenza Type A (PCR) Influenza Type B (PCR) RSV (PCR) Intake and Output - 24 Hour Total 09/06/24 17:27 thru 09/06/24 19:55 Intake Total 1010 Balance 1010 Weight 69.853 kg Intake: IV 1010 Falls Risk Assessment History of Falls Admit Due to Fall 09/06/24 18:49 Contributing Factors No Factors 09/06/24 18:49 Ambulatory Aids Independent 09/06/24 18:49 Tubes/Lines None 09/06/24 18:49 Gait Evaluation No gait disturbance 09/06/24 18:49 Cognition No cognitive impairment 09/06/24 18:49 Fall Total Score 09/06/24 18:49 Level of Risk Moderate Risk 09/06/24 18:49 Problems (Last Updated 09/06/24 @ 21:54 by Jose L Montez) Syncope and collapse (Acute) Hyponatremia (Chronic) Influenza A (Acute) Acute hyponatremia (Chronic) Hypoxic respiratory failure (Acute) Community acquired pneumonia (Acute) Pneumonia (Acute) Hypothyroidism (Chronic) Alcohol abuse (Chronic) Coronary artery disease (Chronic) v v v v v v v v v Sending and/or Receiving Nurses: Please use comment section below to note any information pertinent to the patient hand-off not included above. Information / Comments:Pt readmit x2 to ED today after a syncopal episode where he fell at home. CT and chest xray benign, syncope attributed to Flu A positive. Admit to Med/surg tonight at 1130 for rehydration with LR hung in room. Pt hx of ETOH and tobacco use currently. Report received from:Willis Almeida RN.
[2024-09-07] VITALS: BP 124/60; PULSE 94; RESP 18; TEMP 37.5; O2SAT 95
[2024-09-07 00:30] LABS: Magnesium 1.2 mg/dL
[2024-09-07] MEDS: Normal Saline Flush 10 ML SYR IVP ×2 (00:48→07:44)
[2024-09-07] MEDS: levoFLOXacin 750 MG/150 ML BAG 100 MG IVPB (01:56)
[2024-09-07] MEDS: MAGNESIUM SULFATE 4 GM/100 ML BAG IV_INF (04:34)
[2024-09-07 05:21] LABS: Bilirubin Negative (Negative); Blood Trace-lysed (Negative); Clarity Clear (Clear); Glucose Negative (Negative); Ketones Negative (Negative); Leukocyte Esterase Negative (Negative); Nitrite Negative (Negative); Specific Gravity 1.015 (1.005-1.025); Urobilinogen 0.2 mg/dL (Up to 0.2)
[2024-09-07 05:35] LABS: Bacteria Rare HPF (Negative); C & S Indicated? No; Casts Negative LPF (Negative); Crystals Negative HPF (Negative); Epithelial Cells Rare HPF (Negative); Mucus Negative (Negative); RBC 0-2 HPF (0-2); WBC Negative HPF (0-5)
[2024-09-07 06:53] VITALS: RESP 3
[2024-09-07 06:54] VITALS: RESP 3
[2024-09-07 07:08] LABS: HCT 31.1 % (40.0-50.0); HGB 11.4 g/dL (13.5-17.5); MCH 31.6 pg (27.0-33.0); MCHC 36.7 % (32.0-36.0); MCV 86 fL (80-95); MPV 8.4 fL (8.0-11.0); Platelet Count 155 10^3/uL (130-400); RBC 3.61 10^6/uL (4.36-5.78); RDW 12.4 % (11.8-14.1); RDW-SD 39.4 fL; WBC 10.64 10^3/uL (4.4-10.8)
[2024-09-07 07:39] LABS: ALT 27 U/L (16-63); AST 31 U/L (15-37); Albumin 2.5 g/dL (3.4-5.0); Alkaline Phosphatase 74 U/L (46-116); Anion Gap 10.7 mmol/L (3-11); BUN 11 mg/dL (7-18); Bilirubin, Total 0.4 mg/dL (0.2-1.0); CO2 28.3 mmol/L (21.0-32.0); CREATININE 1.1 mg/dL (0.70-1.30); Calcium 8.5 mg/dL (8.5-10.1); Chloride 89 mmol/L (98-107); Estimated GFR 69.57 (mL/min/1.73m2); Glucose 107 mg/dL (74-106); Magnesium 3.2 mg/dL; Sodium 128 mmol/L (136-145); Total Protein 5.9 g/dL (6.4-8.2)
[2024-09-07 07:43] VITALS: BP 126/64; PULSE 84; RESP 16; TEMP 36.4; O2SAT 93
[2024-09-07] MEDS: Aspirin E.C. 81 MG TABEC PO (07:44)
[2024-09-07] MEDS: Atorvastatin 20 MG TAB PO (07:44)
[2024-09-07] MEDS: Enoxaparin 40 MG/0.4 ML SYR SC (07:44)
[2024-09-07] MEDS: Omeprazole 20 MG CAPCR 40 MG PO (07:44)
[2024-09-07] MEDS: Potassium Chloride 20 MEQ TABCR PO (07:44)
[2024-09-07] MEDS: Benzonatate 100 MG CAP PO (07:44)
[2024-09-07] MEDS: Ferrous Sulfate 325 MG TAB PO (07:44)
[2024-09-07] MEDS: Oseltamivir 30 MG CAP PO (07:44)
[2024-09-07 07:50] LABS: Potassium 2.7 mmol/L (3.5-5.1)
--- NOTE | 2024-09-07 08:39 | PDOC.CMIN ---
Date of service: 09/07/24 Time of Service: 08:39 Care Management Initial Assmt Initial Assessment Reason for Hospitalization: Pneumonia Functional Status/Living Situation Patient Presentation: Oswaldo was awake and lying down in bed when CM met with him. He reports that he is feeling much better. He mentioned that moments ago his stepped out of the room and she wanted to know if he can get a nebulizer for home? Hospitalist is aware and will discuss with patient and . Town of Residence: [place] Resides with: Spouse (Yanelis Singh) Significant Other/Family: Local Natural Supports: Has 5 kids and 20 grandchildren. Some live in [place] and are coming to [place] next week to visit for spring. 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) Instrumental Activities of Daily Living (ADLs): Independent Medications Medication Management: No Issues/Barriers identified Advance Directives Advance Directives: Do you have an Advance Directive: N 05/22/13 14:16 AD On File at [facility]: N 09/05/12 07:09 Date Asked 09/06/24 09/06/24 12:47 AD Date Reviewed COLST On File at [facility] COLST Date Scanned Code Status Resuscitation Status Full Code Insurance Coverage/Financial Issues Insurance: [employer]IG[employer] Medicare Supplement Ins Medicare Part A & B Care Team Visit Care Team Role Provider Nora FULLER NP Primary Care Provider NON-[facility] STAFF PHYSICIAN Yung Bloom DO Emergency Provider [facility] STAFF PHYSICIAN Jose L Montez Admit Provider NON-[facility] STAFF PHYSICIAN Attending Provider Discharge Potential Discharge Needs: PCP F/U Appt Anticipated Barriers to Discharge: Medical Status Patient/Family Education Needs: Review discharge instructions, discuss Ask Me Three Transportation: Private vehicle Plan: Anticipate Oswaldo will discharge home via private vehicle when medically ready for discharge. No home services are anticipated at this time. He will follow up with his PCP and discharge plan of care as directed. CM will follow. Social Determinants of Health Screening Social Determinants of Health last assessed: 09/07/24 Will the Patient Participate in the Screening?: Yes Do you worry about having a steady place to live?: no Problems where you live: no known problems In the past 12 months, have you had to go without electric, gas, oil or water in your home?: no Have you or anyone in your house had to go without enough food to eat?: no Has lack of transportation kept you from medical appointments or from doing things needed for daily living?: no Has anyone in your life made you feel unsafe or unsupported?: no How hard is it for you to pay for the very basics like food, housing, medical care, and heating? Would you say it is:: Not hard at all Do you want help finding or keeping work or a job?: I do not need or want help If for any reason you need help with day-to-day activities such as bathing, preparing meals, shopping, managing finances, etc., do you get the help you need?: I don?t need any help How often do you feel lonely or isolated from those around you?: Never Do you speak a language other than Irish at home?: No Does the patient want assistance with any of the above?: No PFSH All Active Problems (Updated 09/07/24 @ 11:31 by Ramone Alarcon MD) Hypomagnesemia (Acute) Syncope and collapse (Acute) Hyponatremia (Chronic) Influenza A (Acute) Acute hyponatremia (Chronic) Hypoxic respiratory failure (Acute) Community acquired pneumonia (Acute) Pneumonia (Acute) Viral respiratory illness (Acute) Encounter for screening colonoscopy (Acute) Hypothyroidism (Chronic) Alcohol abuse (Chronic) Chondrocalcinosis of right knee (Acute) Arthritis of right knee (Acute) Lumbar radiculopathy (Acute) Urinary retention with incomplete bladder emptying (Acute) Esophagitis (Acute) Gastritis (Acute) Duodenitis (Acute) Sessile colonic polyp (Acute) Tubulovillous adenoma (Acute) Anemia (Chronic) Muscle spasm (Acute) Pain of right thigh (Acute) Coronary artery disease (Chronic) Medical History (Updated 09/07/24 @ 11:31 by Ramone Alarcon MD) Hyperplastic colon polyp Self-catheterizes urinary bladder Coronary artery disease (05/14/14) Leg cramps Lumbar radiculopathy Persistent insomnia Dizziness occasional Dilatation of kidney collecting system Anemia Pulmonary infiltrates Cigarette smoker History of adenomatous polyp of colon Ankle pain, left Hypokalemia Nocturnal leg cramps Erectile dysfunction Sciatica Edentulous Prediabetes Alcohol consumption heavy Fibula fracture Gout Lateral epicondylitis Urinary disorder Surgical History History of esophagogastroduodenoscopy (EGD) (~03/2024) History of colonoscopy with polypectomy (~06/01/21) Stent placement (~2010) LAD x 3- Last saw cardiology 2016. F/U with PCP Colonoscopy - MAC (11/14/17) Family History Mother , age 83 Essential hypertension Heart disease Father , age 75 Heart disease Sister No problems noted. Brother , age 68 Heart disease Alcohol abuse Maternal Grandfather No problems noted. Maternal Grandmother No problems noted. Sister No problems noted. Sister No problems noted. Son No problems noted. Son No problems noted. Daughter No problems noted. Daughter No problems noted. Social History Smoking/Tobacco Use Status: Current every day Tobacco Type: cigarettes Years smoked: 50 Quit status: has quit before Smoking risk assessment performed?: Yes Alcohol Intake: current Alcohol Intake frequency: 3 or more drinks per day Alcohol type: beer Drug use: Never Substance use type: does not use Details: alcohol t-1 x2 beers. Caregiver/Support person: No Household members: spouse Housing: house Communication Needs: None Do you need help understanding health information?: Rarely Pets and animals: Yes Pets and animals: dog(s) Sexually active: No Do you think of yourself as: straight/heterosexual Current gender identity: male What is your relationship status?: How often do you talk on the phone with friends or family?: three or more times per week How often do you get together with friends or relatives?: decline to answer How often do you attend temple or anabaptism services?: decline to answer Do you belong to any clubs or organized social groups?: no Panel score (0-1 are the most socially isolated patients): 2 What type of physical activity do you participate in: none Jennifer/Baptism: [employer] Special jennifer needs: No Seatbelt use: sometimes Drive 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
[2024-09-07 08:52] VITALS: O2SAT 95
[2024-09-07 11:05] VITALS: BP 121/82; PULSE 75; RESP 12; TEMP 37.2; O2SAT 94
--- NOTE | 2024-09-07 11:31 | DSE_ITS ---
Date of service: 09/07/24 Time of Service: 11:31 DS: Diagnosis Discharge Diagnosis (1) Syncope and collapse: Status: Acute (2) Hypoxic respiratory failure: Status: Acute (3) Pneumonia: Status: Acute (4) Influenza A: Status: Acute (5) Hypomagnesemia: Status: Acute (6) Hyponatremia: Status: Chronic (7) Alcohol abuse: Status: Chronic (8) Cigarette smoker: (9) Coronary artery disease: Status: Chronic (10) Hypothyroidism: Status: Chronic Discharge Plan Disposition Patient Disposition: Home Condition: Stable Discharge Details Reason For Visit: Syncope, Pneumonia with influenza A, Hyponatremia Admit Date/Time: 09/06/24 22:09 Admit Provider: Jose L Montez Attending Provider: Jose L Montez Primary Care Provider: JOE FULLER [facility] Course Hospital Course: History of Present Illness History of Present Illness Chief Complaint: Syncopal episode at home with acute respiratory infection. Narrative: This is a 78-year-old male patient who was seen in the ED earlier in the day of admission and sent home for treatment of pneumonia with Levaquin and maximizing treatment of bronchospasm with patient being a smoker. He also drinks beer daily. Upon returning home the patient felt weak and had a syncopal episode falling to the floor but did not injure himself. He returned to the ED and after earlier testing negative he re-tested positive for flu and had significant infiltrates on CT of the chest were performed to rule out PE. CT of the head was negative for any acute injury. He felt better with IV hydration I did have magnesium repleted with is measuring low on current chlorthalidone with potassium supplement. He does drink beer daily and did have a low sodium which has been a problem in the past. This should correct with IV hydration. He has never had alcohol withdrawal symptoms though he does drink beer daily. He also smokes daily. He was admitted for IV antibiotic therapy because of failed outpatient therapy and close monitoring with a syncopal episode and probable dehydration. He also was initiated on treatment for his flu with Tamiflu orally. Being a daily smoker, he will have aggressive nebulizer treatments and offered nicotine supplement if desired. He is a full code. On the eighth, the patient has to be discharged home as he stated that he feels fine did not have any more episodes of dizziness. At the time of discharge we will send him home with Tamiflu as well as Levaquin to complete a course for both his flu as well as pneumonia. I reviewed the patient's laboratory work and noticed that his potassium was low so I will send a prescription over for the potassium as well. A free T4 is pending as the patient did have an elevated TSH but this can be followed up in the outpatient setting. Blood cultures were not drawn. The patient did get a head CT secondary to his fall which was essentially benign as well as a chest x-ray which he has been a CT of his chest which showed multilobar pneumonia but mild. Home Meds and New Rx's Prescriptions: New oseltamivir 30 mg Capsule 30 mg PO BID Qty: 10 0RF levofloxacin 750 mg tablet 750 mg PO DAILY Qty: 7 0RF oseltamivir [Tamiflu] 75 mg capsule 75 mg PO BID 5 Days Qty: 10 0RF potassium chloride 20 mEq packet 40 meq PO BID Qty: 30 0RF Continued amlodipine 10 mg tablet 10 mg PO DAILY Qty: 90 3RF atorvastatin [Lipitor] 20 mg tablet 20 mg PO DAILY Qty: 90 3RF triamcinolone acetonide 0.1 % cream 1 applic Topical BID PRN (Reason: psoriasis) Qty: 80 0RF gabapentin 300 mg capsule 300 mg PO PRN PRN Rx Instructions: Take 1-2 capsules by mouth Three times daily. levothyroxine 150 mcg Tablet 150 mcg PO DAILY aspirin 81 mg tablet,delayed release (DR/EC) 81 mg PO DAILY albuterol sulfate 90 mcg/actuation HFA aerosol inhaler 2 puff inhalation Q6H PRN (Reason: shortness of breath or wheezing) Qty: 8.5 0RF (DME) Aerochamber MV Spacer See Rx Instructions .Route Qty: 1 0RF Rx Instructions: As directed lidocaine HCl 2 % jelly in applicator 1 applic intra-urethral 4-6XD PRN (Reason: catheter insertion) Qty: 500 12RF ferrous sulfate 325 mg (65 mg iron) tablet 325 mg PO DAILY losartan 25 mg tablet 12.5 mg PO DAILY omeprazole 40 mg capsule,delayed release(DR/EC) 40 mg PO DAILY tiotropium bromide [Spiriva with HandiHaler] 18 mcg capsule, w/inhalation device 1 cap inhalation DAILY Rx Instructions: puncture 1 cap using device; one dose = 2 inhalations sildenafil [Viagra] 100 mg tablet 100 mg PO DAILY PRN Rx Instructions: administer 30 minutes to 4 hours before activity cyclobenzaprine 10 mg tablet 10 mg PO TID PRN (Reason: muscle spasm) Qty: 10 0RF levofloxacin 750 mg tablet 750 mg PO DAILY Qty: 6 0RF benzonatate 100 mg capsule 100 mg PO TID Qty: 30 0RF potassium chloride 20 mEq tablet extended release 20 meq PO DAILY Patient Comments: TAKE TWO TABLETS BY MOUTH TWICE A DAY Discontinued chlorthalidone 25 mg tablet 25 mg PO DAILY Discharge Instructions Stand Alone Forms: Nursing Discharge Form Referrals: JOE FULLER, DEPUTY DIRECTOR OF NURSING [Primary Care Provider] - (Follow up with PCP in 3-5 days. Recommend repeat blood work to check for low potassium and follow up on pending labs) Activity:: Activity as Tolerated Equipment/Supplies:: No Equipment Needed Diet:: As Tolerated Discharge Orders Discharge Orders: Discharge Order (Routine); Ordered 09/07/24 Ordered By: Ramone Alarcon DS: Summary Time Spent with Patient providing and/or coordinating discharge services: Greater than 30 minutes Status at Discharge Functional status at discharge: independent ambulation Overall status at discharge: patient is back to baseline Mental Status: mental status grossly normal Speech and Movement: speech and movement normal Mood: congruent mood Affect: normal affect Quality:SDOH Health Related Social Needs: No Data to Display Exam Narrative Exam Narrative: General: Patient appears appropriate for age, mesomorphic and slightly obese, alert and oriented x 3 and in no acute distress. HEENT: Normocephalic, eyes with pupils equal and react to light symmetrically, extraocular movement intact and sclera anicteric. Oropharynx with dry mucosa and fair dentition. Neck: Supple without JVD. Back: Normal posture without CVA tenderness. Lungs: Bronchovesicular breath sounds diffusely with increased expiratory phase and scant expiratory wheeze especially with golf. No focalizing rales but coarse crackles diffusely over upper lung ortiz. No rhonchi. Heart: Tachycardic rate with normal rhythm. No murmurs or gallops appreciated. Abdomen: normal contour, soft without guarding or rebound, no palpable hepatosplenomegaly. Bowel sounds positive all quadrants. Genitalia/rectal: Exam deferred. Extremities: No clubbing, cyanosis or pitting edema. Good capillary refill. Skin: Normal color with actinic changes over sun as well as areas, rough texture, warm and moist. Neuro: Cranial nerves II through XII grossly intact, no focalizing motor deficits or tremor. Psych: Normal affect and mood. No abnormal thought processes. Remote and recent memory grossly intact. Psych Mental Status: mental status grossly normal Speech and Movement: speech and movement normal Mood: congruent mood Affect: normal affect DS: Data Vitals/I&O Vitals and I&O: Vital Signs Temperature 37.2 C 09/07/24 11:05 Temperature Source Temporal Artery Scan 09/07/24 11:05 Pulse 75 09/07/24 11:05 Pulse Rhythm Regular 09/06/24 23:41 Pulse 88 09/06/24 21:01 Respiratory Rate 12 09/07/24 11:05 Respiratory Effort Normal, Non-Labored 09/06/24 23:41 Respiratory Depth Normal 09/06/24 23:41 Respiratory Pattern Normal 09/06/24 23:41 Blood Pressure 121/82 09/07/24 11:05 Blood Pressure Mean 96 09/06/24 21:15 Pulse Oximetry 94 09/07/24 11:05 Oxygen Delivery Method Room Air 09/07/24 11:05 Oxygen Flow Rate 0 09/07/24 11:05 Pain Level 0 09/07/24 11:05 Comment patient 86% on RA 09/06/24 17:29 Intake & Output 09/06/24 09/06/24 09/07/24 11:59 23:59 11:59 Intake Total 1010 / 1010 250 / 250 Output Total 900 / 900 Balance 1010 / 1010 -650 / -650 Weight 69.672 kg Intake: IV 1010 / 1010 250 / 250 Output: Urine 900 / 900 Other: Urine Color Yellow Urine Appearance Clear Urine Odor Normal Stool Size Moderate Stool Characteristics Formed Data Completed and Pending Labs on day of discharge: Labs from last 24 hours 09/07/24 09/07/24 09/06/24 06:05 03:50 20:54 WBC 10.64 RBC 3.61 L Hgb 11.4 L Hct 31.1 L MCV 86 MCH 31.6 MCHC 36.7 H RDW 12.4 Plt Count 155 MPV 8.4 Immature Gran % Neutrophils % Lymphocytes % Monocytes % Eosinophils % Basophils % Nucleated RBC % Absolute Neutrophils Absolute Lymphocytes Absolute Monocytes Absolute Eosinophils Absolute Basophils PT INR APTT D-Dimer VBG pH VBG pCO2 VBG pO2 VBG HCO3 VBG Total CO2 VBG O2 Saturation VBG Base Excess Sodium 128 L Potassium 2.7 L* Chloride 89 L Carbon Dioxide 28.3 Anion Gap 10.7 BUN 11 Creatinine 1.1 Est GFR (CKD-EPI 2020) 69.57 Glucose 107 H Calcium 8.5 Magnesium 3.2 Total Bilirubin 0.4 AST 31 ALT 27 Alkaline Phosphatase 74 Troponin I Cancelled Total Protein 5.9 L Albumin 2.5 L TSH Free T4 Urine Color Yellow Urine Clarity Clear Urine pH 6.0 Ur Specific [place] 1.015 Urine Protein Negative Urine Ketones Negative Urine Blood Trace-lysed H Urine Nitrite Negative Urine Bilirubin Negative Urine Urobilinogen 0.2 Ur Leukocyte Esterase Negative Urine RBC 0-2 Urine WBC Negative Ur Epithelial Cells Rare Urine Crystals Negative Urine Bacteria Rare Urine Casts Negative Urine Mucus Negative Ur Culture Indicated? No Urine Glucose Negative COVID-19 Source SARS-CoV-2 (PCR) Influenza Type A (PCR) Influenza Type B (PCR) RSV (PCR) 09/06/24 09/06/24 09/06/24 20:25 20:03 18:24 WBC 9.92 RBC 3.74 L Hgb 12.0 L Hct 32.5 L MCV 87 MCH 32.1 MCHC 36.9 H RDW 12.4 Plt Count 141 MPV 8.1 Immature Gran % 0.3 Neutrophils % 88.6 Lymphocytes % 3.6 Monocytes % 6.8 Eosinophils % 0.5 Basophils % 0.2 Nucleated RBC % 0.0 Absolute Neutrophils 8.79 H Absolute Lymphocytes 0.36 L Absolute Monocytes 0.67 Absolute Eosinophils 0.05 Absolute Basophils 0.02 PT 10.8 INR 1.1 APTT 32.3 H D-Dimer 857 H VBG pH 7.44 H VBG pCO2 40 L VBG pO2 42 VBG HCO3 27 VBG Total CO2 24 VBG O2 Saturation 79 VBG Base Excess 3 Sodium 125 L Potassium 3.5 Chloride 88 L Carbon Dioxide 28.5 Anion Gap 8.5 BUN 12 Creatinine 1.2 Est GFR (CKD-EPI 2020) 62.67 Glucose 144 H Calcium 8.5 Magnesium 1.2 Total Bilirubin 0.3 AST 36 ALT 38 Alkaline Phosphatase 81 Troponin I 45 47 Total Protein 6.5 Albumin 2.9 L TSH 4.26 H Free T4 Pending Urine Color Urine Clarity Urine pH Ur Specific [place] Urine Protein Urine Ketones Urine Blood Urine Nitrite Urine Bilirubin Urine Urobilinogen Ur Leukocyte Esterase Urine RBC Urine WBC Ur Epithelial Cells Urine Crystals Urine Bacteria Urine Casts Urine Mucus Ur Culture Indicated? Urine Glucose COVID-19 Source Cancelled SARS-CoV-2 (PCR) Cancelled Influenza Type A (PCR) Cancelled Influenza Type B (PCR) Cancelled RSV (PCR) Cancelled [facility] All Active Problems (Updated 09/07/24 @ 11:31 by Ramone Alarcon MD) Hypomagnesemia (Acute) Syncope and collapse (Acute) Hyponatremia (Chronic) Influenza A (Acute) Acute hyponatremia (Chronic) Hypoxic respiratory failure (Acute) Community acquired pneumonia (Acute) Pneumonia (Acute) Viral respiratory illness (Acute) Encounter for screening colonoscopy (Acute) Hypothyroidism (Chronic) Alcohol abuse (Chronic) Chondrocalcinosis of right knee (Acute) Arthritis of right knee (Acute) Lumbar radiculopathy (Acute) Urinary retention with incomplete bladder emptying (Acute) Esophagitis (Acute) Gastritis (Acute) Duodenitis (Acute) Sessile colonic polyp (Acute) Tubulovillous adenoma (Acute) Anemia (Chronic) Muscle spasm (Acute) Pain of right thigh (Acute) Coronary artery disease (Chronic) Medical History (Updated 09/07/24 @ 11:31 by Ramone Alarcon MD) Hyperplastic colon polyp Self-catheterizes urinary bladder Coronary artery disease (05/14/14) Leg cramps Lumbar radiculopathy Persistent insomnia Dizziness occasional Dilatation of kidney collecting system Anemia Pulmonary infiltrates Cigarette smoker History of adenomatous polyp of colon Ankle pain, left Hypokalemia Nocturnal leg cramps Erectile dysfunction Sciatica Edentulous Prediabetes Alcohol consumption heavy Fibula fracture Gout Lateral epicondylitis Urinary disorder Surgical History History of esophagogastroduodenoscopy (EGD) (~03/2024) History of colonoscopy with polypectomy (~06/01/21) Stent placement (~2010) LAD x 3- Last saw cardiology 2017. F/U with PCP Colonoscopy - MAC (11/14/17) Family History Mother , age 83 Essential hypertension Heart disease Father , age 75 Heart disease Sister No problems noted. Brother , age 68 Heart disease Alcohol abuse Maternal Grandfather No problems noted. Maternal Grandmother No problems noted. Sister No problems noted. Sister No problems noted. Son No problems noted. Son No problems noted. Daughter No problems noted. Daughter No problems noted. Social History Smoking/Tobacco Use Status: Current every day Tobacco Type: cigarettes Years smoked: 50 Quit status: has quit before Smoking risk assessment performed?: Yes Alcohol Intake: current Alcohol Intake frequency: 3 or more drinks per day Alcohol type: beer Drug use: Never Substance use type: does not use Details: alcohol t-1 x2 beers. Caregiver/Support person: No Household members: spouse Housing: house Communication Needs: None Do you need help understanding health information?: Rarely Pets and animals: Yes Pets and animals: dog(s) Sexually active: No Do you think of yourself as: straight/heterosexual Current gender identity: male What is your relationship status?: How often do you talk on the phone with friends or family?: three or more times per week How often do you get together with friends or relatives?: decline to answer How often do you attend lutheran or jehovah's witness services?: decline to answer Do you belong to any clubs or organized social groups?: no Panel score (0-1 are the most socially isolated patients): 2 What type of physical activity do you participate in: none Jennifer/Congregational: Anglican Special jennifer needs: No Seatbelt use: sometimes Drive 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
--- NOTE | 2024-09-07 12:25 | PDOC.CMDIS ---
Date of service: 09/07/24 Time of Service: 12:25 LACE Index Scoring Tool Questions: Length of Stay (in days): 1 Was the patient admitted via the E.D.?: Yes Comorbidities: Chronic Pulmonary Disease E.D. Visits: 2 Answers: Total Score: 8 Risk of Readmission: Low Risk Care Management Discharge Plan Reason for Hospitalization: Influenza A, Syncope Discharge Plan: Oswaldo is discharged home via private vehicle with . He will follow up with his PCP and discharge plan of care as directed. Referral to Pulmonology as discussed. No new services are ordered prior to discharge. Patient/Family Education Needs: Review discharge instructions and plan to follow up after discharge. Discuss ask me three. SDOH Health Related Social Needs: No Data to Display
[2024-09-07 22:14] LABS: T4, Free 1.6 ng/dL (0.8-2.2)
--- NOTE | 2024-09-09 08:03 | NUR.NOTE ---
Access chart to reconcile EKG orders with EKG's in [facility]. Duplicate order cancelled. Nursing Note:
== END 2024-09-07 12:38 | disposition home or self-care (01) | DRG 193 ==
LOC: ER 21:18 → MS 23:34
PROVIDERS: Admitting Provider Family Medicine; Emergency Provider Student in an Organized Health Care Education/Training Program; PCP Nurse Practitioner Family; Responsible Provider Hospitalist; Visit Provider Family Medicine
DX: J10.00 Influenza due to other identified influenza virus with unspecified type of pneumonia (principal); J96.01 Acute respiratory failure with hypoxia; E87.1 Hypo-osmolality and hyponatremia; R55 Syncope and collapse; E83.42 Hypomagnesemia; F10.10 Alcohol abuse, uncomplicated; F17.210 Nicotine dependence, cigarettes, uncomplicated; I25.10 Atherosclerotic heart disease of native coronary artery without angina pectoris; E03.9 Hypothyroidism, unspecified; W18.39XA Other fall on same level, initial encounter; M17.11 Unilateral primary osteoarthritis, right knee; M54.16 Radiculopathy, lumbar region; D64.9 Anemia, unspecified
CPT/HCPCS: 00123; 36415; 71275; 76604; 80053; 82805; 85027; 87637; 93005; 96360; 99284; 99291; J1650; 70450; 71045; 81003; 81015; 83735; 84439; 84443; 84484; 85025; 85379; 85610; 85730; 93010; 94760; 99223; 99239; J1956; J3475; J3490

== ENCOUNTER 2024-09-11 13:06 | Outpatient (REF) | payer MEDICARE, OTHER, SELFPAY ==
[2024-09-11 15:35] LABS: Anion Gap 8.6 mmol/L (3-11); BUN 12 mg/dL (7-18); CO2 26.4 mmol/L (21.0-32.0); CREATININE 1.1 mg/dL (0.70-1.30); Chloride 94 mmol/L (98-107); Estimated GFR 69.57 (mL/min/1.73m2); Glucose 99 mg/dL (74-106); Potassium 4.4 mmol/L (3.5-5.1); Sodium 129 mmol/L (136-145)
== END 2024-09-11 13:07 | disposition home or self-care (01) ==
LOC: NCHCN 13:06
PROVIDERS: PCP Nurse Practitioner Family; Visit Provider Nurse Practitioner Family
DX: Z76.89 Persons encountering health services in other specified circumstances (principal)
CPT/HCPCS: 80048

== ENCOUNTER 2024-11-12 19:16 | Outpatient (REF) | payer MEDICARE, OTHER, SELFPAY ==
[2024-11-12 20:17] LABS: Bilirubin Negative (Negative); Blood Large (Negative); Clarity Cloudy (Clear); Glucose Negative (Negative); Ketones 15 mg/dL (Negative); Leukocyte Esterase Moderate (Negative); Nitrite Positive (Negative); Specific Gravity 1.015 (1.005-1.025); Urobilinogen 0.2 mg/dL (Up to 0.2)
[2024-11-12 20:24] LABS: Bacteria Few HPF (Negative); Epithelial Cells Negative HPF (Negative); WBC >50 HPF (0-5)
[2024-11-12 20:25] LABS: C & S Indicated? C&S Done As Ordered; Casts Negative LPF (Negative); Crystals Negative HPF (Negative); Mucus Moderate (Negative)
== END 2024-11-12 19:17 | disposition home or self-care (01) ==
LOC: LBN 19:16
PROVIDERS: PCP Nurse Practitioner Family; Visit Provider Urology
DX: R33.9 Retention of urine, unspecified (principal); Z78.9 Other specified health status
CPT/HCPCS: 87077; 81003; 81015; 87086; 87186

== ENCOUNTER 2024-12-03 15:41 | Outpatient (REF) | payer MEDICARE, OTHER, SELFPAY ==
[2024-12-03 11:57] LABS: Bilirubin Negative (Negative); Blood Trace-intact (Negative); Clarity Cloudy (Clear); Glucose Negative (Negative); Ketones Negative (Negative); Leukocyte Esterase Moderate (Negative); Nitrite Positive (Negative); Specific Gravity 1.015 (1.005-1.025); Urobilinogen 0.2 mg/dL (Up to 0.2)
[2024-12-03 12:05] LABS: Bacteria Many HPF (Negative); C & S Indicated? C&S Done As Ordered; Casts Negative LPF (Negative); Crystals Negative HPF (Negative); Epithelial Cells Few HPF (Negative); Mucus Negative (Negative); RBC 0-2 HPF (0-2); WBC 20-50 HPF (0-5)
== END 2024-12-03 15:42 | disposition home or self-care (01) ==
LOC: LBN 15:41
PROVIDERS: PCP Nurse Practitioner Family; Visit Provider Urology
DX: Z78.9 Other specified health status (principal); R33.9 Retention of urine, unspecified
CPT/HCPCS: 87077; 81003; 81015; 87086; 87186

== ENCOUNTER 2025-02-19 09:23 | Outpatient (REF) | payer MEDICARE, OTHER, SELFPAY ==
[2025-02-19 16:36] LABS: HCT 34.6 % (40.0-50.0); HGB 11.7 g/dL (13.5-17.5); MCH 31.3 pg (27.0-33.0); MCHC 33.8 % (32.0-36.0); MCV 93 fL (80-95); MPV 8.8 fL (8.0-11.0); Platelet Count 230 10^3/uL (130-400); RBC 3.74 10^6/uL (4.36-5.78); RDW 14.2 % (11.8-14.1); RDW-SD 48.0 fL; WBC 7.26 10^3/uL (4.4-10.8)
[2025-02-19 16:45] LABS: Iron 71 ug/dL (65-175); Total Iron Binding Capacity 282 ug/dL (250-450); Transferrin Sat 25 % (20-55)
[2025-02-19 16:58] LABS: ALT 27 U/L (16-63); AST 35 U/L (15-37); Albumin 3.4 g/dL (3.4-5.0); Alkaline Phosphatase 81 U/L (46-116); Anion Gap 10.0 mmol/L (3-11); BUN 12 mg/dL (7-18); Bilirubin, Total 0.5 mg/dL (0.2-1.0); CO2 27.0 mmol/L (21.0-32.0); Calcium 8.8 mg/dL (8.5-10.1); Calculated LDL 73 mg/dL (<100); Chloride 102 mmol/L (98-107); Cholesterol 155 mg/dL (<200); Estimated GFR 91.15 (mL/min/1.73m2); Ferritin 264 ng/mL (26-388); Glucose 97 mg/dL (74-106); HDL Cholesterol 73 mg/dL (>or=40); Potassium 4.4 mmol/L (3.5-5.1); Sodium 139 mmol/L (136-145); TSH (W/Ref FT4) 4.97 uIU/mL (0.36-3.74); Total Protein 6.6 g/dL (6.4-8.2); Triglyceride 48 mg/dL (<150)
[2025-02-20 18:15] LABS: PSA, Diagnostic 1.7 ng/mL (<=6.5)
== END 2025-02-19 09:24 | disposition home or self-care (01) ==
LOC: NCHCN 09:23
PROVIDERS: PCP Nurse Practitioner Family; Visit Provider Nurse Practitioner Family
DX: D50.9 Iron deficiency anemia, unspecified (principal); N40.0 Benign prostatic hyperplasia without lower urinary tract symptoms; I10 Essential (primary) hypertension; E03.9 Hypothyroidism, unspecified; I25.10 Atherosclerotic heart disease of native coronary artery without angina pectoris
CPT/HCPCS: 80053; 80061; 85027; 82728; 83540; 83550; 84153; 84439; 84443

== ENCOUNTER 2025-04-18 10:00 | Emergency (ER) | payer MEDICARE, OTHER, SELFPAY ==
[2025-04-18 10:04] VITALS: BP 118/65; PULSE 89; RESP 20; TEMP 36.4; O2SAT 94
[2025-04-18 10:10] VITALS: BP 118/65; PULSE 89; RESP 20; TEMP 36.4; O2SAT 94
--- NOTE | 2025-04-18 10:15 | DI.RAD_ITS ---
Exam(s) XR CHEST 2V PA LATERAL EXAM: XR CHEST 2V PA LATERAL CLINICAL HISTORY: cough, stuffy nose, eval PNA TECHNIQUE: 2D digital imaging was performed. Two views. COMPARISON: CR XR PORTABLE CHEST AP from 09/06/[address] CHEST PE CTA from 09/06/2024 FINDINGS: HEART: Normal size. Aorta: Not dilated. PULMONARY VASCULATURE: Normal. MEDIASTINUM: Unremarkable. LUNGS: Mild scarring at the left lower lobe. Clear. PLEURAL SPACE: No pleural effusion or pneumothorax. BONE:Unremarkable for age. SOFT TISSUES: Unremarkable. IMPRESSION: No acute abnormality. DATA REPOSITORY: RADIATION DOSE DELIVERED:
--- NOTE | 2025-04-18 10:30 | ED.GENADUL_ITS ---
Discharge Plan Disposition Patient Disposition: Home Condition: Stable Discharge Details Clinical Impression: Bronchitis Primary Care Provider: JOE FULLER ED Provider: Peggy Torres Home Meds and New Rx's Prescriptions: New azithromycin [Zithromax Z-Ag] 250 mg tablet See Rx Instructions .ROUTE .COMPLEX Qty: 6 0RF Rx Instructions: For 250 mg dose pack: take 500 mg today (day 1), then 250 mg for 4 days (days 2-5) prednisone 20 mg tablet 40 mg PO DAILY 5 Days Qty: 10 0RF No Action amlodipine 10 mg tablet 10 mg PO DAILY Qty: 90 3RF atorvastatin [Lipitor] 20 mg tablet 20 mg PO DAILY Qty: 90 3RF triamcinolone acetonide 0.1 % cream 1 applic Topical BID PRN (Reason: psoriasis) Qty: 80 0RF gabapentin 300 mg capsule 300 mg PO PRN PRN Rx Instructions: Take 1-2 capsules by mouth Three times daily. levothyroxine 150 mcg Tablet 150 mcg PO DAILY aspirin 81 mg tablet,delayed release (DR/EC) 81 mg PO DAILY albuterol sulfate 90 mcg/actuation HFA aerosol inhaler 2 puff inhalation Q6H PRN (Reason: shortness of breath or wheezing) Qty: 8.5 0RF (DME) Aerochamber MV Spacer See Rx Instructions .Route Qty: 1 0RF Rx Instructions: As directed lidocaine HCl 2 % jelly in applicator 1 applic intra-urethral 4-6XD PRN (Reason: catheter insertion) Qty: 500 12RF ferrous sulfate 325 mg (65 mg iron) tablet 325 mg PO DAILY losartan 25 mg tablet 12.5 mg PO DAILY omeprazole 40 mg capsule,delayed release(DR/EC) 40 mg PO DAILY tiotropium bromide [Spiriva with HandiHaler] 18 mcg capsule, w/inhalation device 1 cap inhalation DAILY Rx Instructions: puncture 1 cap using device; one dose = 2 inhalations sildenafil [Viagra] 100 mg tablet 100 mg PO DAILY PRN Rx Instructions: administer 30 minutes to 4 hours before activity mesalamine 0.375 gram capsule,extended release 24hr 1.5 g PO DAILY Discharge Instructions Instructions: Bronchitis, Adult ED Additional Instructions: You were seen in the emergency department today for evaluation of cough, sputum production, and runny nose. In our department he had a full physical examination performed, had a negative viral swab for COVID, influenza, and RSV, and had a chest x-ray that did not show any large areas of pneumonia. With your history of COPD I am concerned for bronchitis, which we treat with steroids and antibiotics. You have 2 prescriptions at the pharmacy, you will take each of these once per day for the next 5 days. Please take all of the medication until it is gone, even if you start to feel better. Please follow-up with your primary care provider in the next few days to discuss this visit and any symptoms that change, worsen, or persist. Thank you for allowing us to be part of your care. Discharge Data Discharge Date/Time-TO BE ENTERED AT DEPARTURE: 04/18/25 11:12 HPI General Mode of arrival: ambulatory . Date/Time Provider Initiated Documentation: 04/18/25 10:04 . Limitations to Documentation: no limitations . Information obtained by: patient and old records reviewed . HPI Narrative: This is a 79-year-old male patient with a history of COPD, nicotine use, coronary artery disease, presenting for evaluation of cough with increased sputum production. He reports that for the last few days he has noted a change in his sputum, now yellowish in color, as well as some increased fatigue, sneezing, and sore throat. He reports that he was admitted to this hospital last spring with pneumonia, and this feels like a less severe version of that event. He has not had fevers or chills, has been tolerating oral intake without difficulty, maintaining his hydration. The patient denies chest pain, leg swelling, back pain. No recent sick contacts. Related Data Home Medications ?Medication ?Instructions ?Recorded ?Confirmed amlodipine 10 mg tablet 10 mg PO DAILY #90 tab-caps 08/27/19 04/18/25 atorvastatin 20 mg tablet (Lipitor) 20 mg PO DAILY #90 tabs 08/27/19 04/18/25 triamcinolone acetonide 0.1 % 1 applic topical BID PRN psoriasis 08/27/19 04/18/25 topical cream #80 grams ferrous sulfate 325 mg (65 mg 325 mg PO DAILY 04/28/21 04/18/25 iron) tablet losartan 25 mg tablet 12.5 mg PO DAILY 04/28/21 omeprazole 40 mg capsule,delayed 40 mg PO DAILY 04/18/25 release gabapentin 300 mg capsule 300 mg PO PRN PRN 08/10/21 1 levothyroxine 150 mcg tablet 150 mcg PO DAILY 08/10/21 04/18/25 albuterol sulfate 90 mcg/actuation 2 puff inhalation Q 6H PRN 07/12/23 04/18/25 aerosol inhaler shortness of breath or wheez ing #8.5 grams aspirin 81 mg tablet,delayed 81 mg PO DAILY 07/12/23 1 release inhalational spacing device #1 ea 07/12/23 09/06/24 (Aerochamber MV spacer) lidocaine HCl 2 % mucosal jelly in 1 applic intra-uret hral 4-6XD PRN 08/04/23 04/18/25 applicator catheter insertion #500 mL sildenafil 100 mg tablet (Viagra) 100 mg PO DAILY PRN 02/13/24 04/18/25 tiotropium bromide 18 mcg capsule 1 cap inhalation DOMINGA LY 02/13/24 04/18/25 with inhalation device (Spiriva with HandiHaler) azithromycin 250 mg tablet See Rx Instructions PO .COM PLEX #6 04/18/25 (Zithromax Z-Ag) tabs mesalamine 0.375 gram 1.5 g PO DAILY 04/18/2504/02 capsule,extended release 24 hr prednisone 20 mg tablet 40 mg (2 x 20 mg) PO DAILY 5 days 04/18/25 #10 tabs Previous Rx's ?Medication ?Instructions ?Recorded amlodipine 10 mg tablet 10 mg PO DAILY #90 tab-caps 08/27/19 atorvastatin 20 mg tablet (Lipitor) 20 mg PO DAILY #90 tabs 08/27/19 triamcinolone acetonide 0.1 % 1 applic topical BID PRN psoriasis 08/27/19 topical cream #80 grams albuterol sulfate 90 mcg/actuation 2 puff inhalation Q 6H PRN 07/12/23 aerosol inhaler shortness of breath or wheez ing #8.5 grams inhalational spacing device #1 ea 07/12/23 (Aerochamber MV spacer) lidocaine HCl 2 % mucosal jelly in 1 applic intra-uret hral 4-6XD PRN 08/04/23 applicator catheter insertion #500 mL azithromycin 250 mg tablet See Rx Instructions PO .COM PLEX #6 04/18/25 (Zithromax Z-Ag) tabs prednisone 20 mg tablet 40 mg (2 x 20 mg) PO DAILY 5 days 04/18/25 #10 tabs Allergies Allergy/AdvReac Type Severity Reaction Status Date / Time Sulfa (Sulfonamide Allergy Intermediate HIGH FEVER Verified 04/18/25 10:07 Antibiotics) lisinopril AdvReac Mild COUGH Verified 04/18/25 10:07 prednisone AdvReac Unknown DELIRIUM Verified 04/18/25 10:07 General Stated Complaint: RespSymp SHARON: 3 Exam Narrative Exam Narrative: Gen: Awake and alert, in no apparent distress HEENT: Non-icteric sclera Neck: Supple Lungs: No apparent respiratory distress, normal respiratory effort. Lung sounds are clear and equal without wheezing, rhonchi, rales CV: Appears well perfused, heart with regular rate and rhythm, strong distal pulses, no murmurs auscultated Abdomen: Non-distended MSK: Moves 4 extremities without apparent limitation in ROM. No peripheral edema, no unilateral calf swelling or tenderness Skin: Visualized skin without rashes, cyanosis. Neuro: Normal Gait, no obvious focal deficits or facial asymmetry. Speaks in full, clear sentences. Psych: Appropriate for situation. Course Vital Signs Vital signs: Vital Signs Temperature 36.4 C 04/18/25 10:04 Pulse 89 04/18/25 10:04 Respiratory Rate 20 04/18/25 10:04 Blood Pressure 118/65 04/18/25 10:04 Pulse Oximetry 94 04/18/25 10:04 Temperature 36.4 C 04/18/25 10:10 Pulse 89 04/18/25 10:10 Respiratory Rate 20 04/18/25 10:10 Blood Pressure 118/65 04/18/25 10:10 Pulse Oximetry 94 04/18/25 10:10 Pain Level 0 04/18/25 10:10 Medical Decision Making This is a 79-year-old male patient presenting for evaluation of cough and change in sputum production. My differential includes but is not limited to URI, pneumonia, bronchitis. No wheezing to suggest COPD exacerbation, and the patient is reassuringly without hypoxia or new oxygen requirement. He has no history of heart failure nor evidence of fluid overloa to suggest pulmonary e viola, pleural effusion, and exam is less concerning for pneumothorax. No chest pain to suggest ACS. We will obtain a viral swab and a chest x-ray. The patient does not require any nebulizer breathing treatments at this time. I did discuss laboratory studies, the patient states that he had this done at his outpatient providers, and given his hemodynamic stability and brief duration of symptoms I do not feel that this is unreasonable to hold on blood work at this time. -Viral swab negative for COVID, influenza, and RSV. Chest x-ray reviewed by myself and shows no focal consolidations concerning for pneumonia. Given his history of COPD and sputum production change I feel that this meets criteria for bronchitis and provided the patient with a course of azithromycin and a prednisone burst. At this time, the patient has had a full medical evaluation and is safe for discharge to home. They are hemodynamically stable, ambulatory, and tolerating PO. They are understanding of the follow-up plan and return precautions. They left our facility without incident. Peggy Torres MD [facility] All Active Problems (Updated 04/18/25 @ 11:04 by Peggy oTrres MD) Bronchitis (Acute) Influenza A (Acute) Community acquired pneumonia (Acute) Viral respiratory illness (Acute) Encounter for screening colonoscopy (Acute) Hypothyroidism (Chronic) Alcohol abuse (Chronic) Chondrocalcinosis of right knee (Acute) Arthritis of right knee (Acute) Lumbar radiculopathy (Acute) Urinary retention with incomplete bladder emptying (Acute) Esophagitis (Acute) Gastritis (Acute) Duodenitis (Acute) Sessile colonic polyp (Acute) Tubulovillous adenoma (Acute) Anemia (Chronic) Muscle spasm (Acute) Pain of right thigh (Acute) Coronary artery disease (Chronic) Medical History (Updated 04/18/25 @ 11:04 by Peggy Torres MD) Hyperplastic colon polyp Self-catheterizes urinary bladder Coronary artery disease (05/14/14) Leg cramps Lumbar radiculopathy Persistent insomnia Dizziness occasional Dilatation of kidney collecting system Anemia Pulmonary infiltrates Cigarette smoker History of adenomatous polyp of colon Ankle pain, left Hypokalemia Nocturnal leg cramps Erectile dysfunction Sciatica Edentulous Prediabetes Alcohol consumption heavy Fibula fracture Gout Lateral epicondylitis Urinary disorder Surgical History History of esophagogastroduodenoscopy (EGD) (~03/2024) History of colonoscopy with polypectomy (~06/01/21) Stent placement (~2010) LAD x 3- Last saw cardiology 2017. F/U with PCP Colonoscopy - MAC (11/14/17) Family History Mother , age 83 Essential hypertension Heart disease Father , age 75 Heart disease Sister No problems noted. Brother , age 68 Heart disease Alcohol abuse Maternal Grandfather No problems noted. Maternal Grandmother No problems noted. Sister No problems noted. Sister No problems noted. Son No problems noted. Son No problems noted. Daughter No problems noted. Daughter No problems noted. Social History Smoking/Tobacco Use Status: Current every day Tobacco Type: cigarettes Years smoked: 50 Quit status: has quit before Smoking risk assessment performed?: Yes Alcohol Intake: current Alcohol Intake frequency: 3 or more drinks per day Alcohol type: beer Drug use: Never Substance use type: does not use Details: alcohol t-1 x2 beers. Caregiver/Support person: No Household members: spouse Housing: house Communication Needs: None Do you need help understanding health information?: Rarely Pets and animals: Yes Pets and animals: dog(s) Sexually active: No Do you think of yourself as: straight/heterosexual Current gender identity: male What is your relationship status?: How often do you talk on the phone with friends or family?: three or more times per week How often do you get together with friends or relatives?: decline to answer How often do you attend restoration or presybeterian services?: decline to answer Do you belong to any clubs or organized social groups?: no Panel score (0-1 are the most socially isolated patients): 2 What type of physical activity do you participate in: none Jennifer/Samaritan: Protestant Special jennifer needs: No Seatbelt use: sometimes Drive intox or ride w/intox bulk tank driver: No Do you feel safe at home: Yes Do you feel safe in your relationship?: Yes Additional Social history: [employer]
[2025-04-18 11:01] LABS: COVID-19 PCR Negative (Negative); RSV PCR Negative (Negative)
[2025-04-18 11:10] VITALS: BP 134/82; PULSE 90; RESP 18; TEMP 36.9; O2SAT 95
== END 2025-04-18 11:12 | disposition home or self-care (01) ==
PROVIDERS: Emergency Provider Emergency Medicine; PCP Nurse Practitioner Family
DX: J40 Bronchitis, not specified as acute or chronic (principal)
CPT/HCPCS: 99283; 99284; 87637; 71046

== ENCOUNTER 2025-04-18 11:11 | Outpatient (REF) | payer MEDICARE, OTHER, SELFPAY ==
[2025-04-18 12:56] LABS: Glucose Negative (Negative)
== END 2025-04-18 11:12 | disposition home or self-care (01) ==
LOC: LBN 11:11
PROVIDERS: PCP Nurse Practitioner Family; Referring Provider Urology; Visit Provider Urology
DX: R30.0 Dysuria (principal); Z78.9 Other specified health status; R33.9 Retention of urine, unspecified
CPT/HCPCS: 81003; 87086